=== PATIENT | female | born 1970 ===

== ENCOUNTER 2020-03-31 15:30 | Outpatient (REF) | payer OTHER, SELFPAY ==
--- NOTE | 2020-03-31 | US_ITS ---
EXAMINATION: US THYROID CLINICAL INFORMATION: Hypothyroidism. COMPARISON: Ultrasound soft tissue head/neck thyroid dated 03/19/2019 and 04/24/2018. TECHNIQUE: Linear transducer johansen-scale and color Doppler examination with attention to the region of the thyroid. FINDINGS: SIZE: Measurements of the thyroid lobes and nodules are given in sagittal, anteroposterior and transverse dimensions respectively. Right Thyroid Lobe: 3.6 x 1.7 x 2.2 cm, volume 6.7 mL. Previously 4 x 1.5 x 2.0 cm, volume 6.1 mL. Parenchyma: The gland echotexture is heterogeneous. Thyroid vascularity is increased. Left Thyroid Lobe: 4.4 x 1.4 x 1.4 cm, volume 4.7 mL. Previously 4.5 x 1.7 x 1.5 cm, volume 6.0 mL. Parenchyma: The gland echotexture is heterogeneous. Thyroid vascularity is increased. Isthmus: 0.3 cm in maximum AP dimension. Previously 0.3 cm. RIGHT THYROID LOBE: There is 1 nodule seen. 1. Location: Interpolar anterior. Size: 0.8 x 0.7 x 0.7 cm. Previous: 0.7 x 0.5 x 0.7 cm. Nodule characteristics: Hypoechoic, circumscribed, color flow similar to background. ISTHMUS: No nodules. LEFT THYROID LOBE: There are 4 nodules seen. 1. Location: Interpolar posterior. Size: 0.9 x 0.6 x 0.7 cm. Previous: 0.9 x 0.7 x 0.9 cm. Nodule characteristics: Isoechoic, fine hypoechoic halo, circumscribed, color flow similar to background. 2. Location: Superior. Size: 0.7 x 0.5 x 0.5 cm. Previous: Not previously demonstrated. Nodule characteristics: Coarse calcifications with shadowing. 3. Location: Inferior. Size: 0.6 x 0.5 x 0.5 cm. Previous: 0.5 x 0.5 x 0.5 cm. Nodule characteristics: Hyperechoic, fine hypoechoic halo, circumscribed, color flow less than background. 4. Location: Inferior. Size: 1.5 x 1.1 x 1.1 cm. Previous: 1.6 x 1.2 x 1.1 cm. Nodule characteristics: Heterogeneous, scattered coarse calcifications, smooth margin, color flow similar to background. NODES: No lymphadenopathy is seen in the tissue surrounding the thyroid gland. IMPRESSION: 1. Thyroid within normal size with hypervascular parenchyma similar to prior exam. 2. New nodule left upper lobe under 1 cm with coarse calcifications. Suggest follow-up ultrasound in 6-12 months. 3. Other nodularity including dominant nodule left lower pole, stable.
== END 2020-03-31 15:31 | disposition home or self-care (01) ==
LOC: HO.US 15:30
PROVIDERS: Visit Provider Internal Medicine
DX: E03.9 Hypothyroidism, unspecified (principal)
CPT/HCPCS: 76536

== ENCOUNTER → 2020-04-15 09:52 | Outpatient (BNVA) | payer OTHER, SELFPAY | PROVIDERS: Visit Provider Internal Medicine | DX: E04.2 Nontoxic multinodular goiter (principal); E03.9 Hypothyroidism, unspecified; E55.9 Vitamin D deficiency, unspecified; Z79.899 Other long term (current) drug therapy | CPT/HCPCS: 99212 ==

== ENCOUNTER 2020-05-06 12:58 | Outpatient (REF) | payer OTHER, SELFPAY | END 2020-05-06 12:59 | disposition home or self-care (01) | LOC: HO.LAB 12:58 | PROVIDERS: Visit Provider Internal Medicine | DX: Z20.828 Contact with and (suspected) exposure to other viral communicable diseases (principal) | CPT/HCPCS: C9803; U0003 ==

== ENCOUNTER 2020-06-11 08:47 | Outpatient (REF) | payer OTHER, SELFPAY ==
--- NOTE | 2020-06-11 08:51 | MM_ITS ---
EXAMINATION: MM SCREENING DIGITAL BREAST TOMOSYNTHESIS, BILATERAL CLINICAL INFORMATION: Screening. Asymptomatic. Benign right breast biopsy 2018 (PASH). The lifetime risk of breast cancer based on the Tyrer-Cuzick Model is 8%. COMPARISON: Mammography: 11/02/2018, 11/23/2017, 10/25/2017, 04/18/2016 TECHNIQUE: Digital breast tomosynthesis is performed in both the craniocaudal and mediolateral oblique views along with computer-aided detection (CAD). Synthesized 2D images are generated from the tomosynthesis. FINDINGS: The breasts are extremely dense, which lowers the sensitivity of mammography (ACR BI-RADS breast composition Category d). There are scattered bilateral punctate round calcifications again noted in both breasts. No calcification. There is no interval architectural abnormality. The axilla and skin contours are unremarkable. Right breast again has oval mass upper outer quadrant with biopsy clip marker, confirmed pseudoangiomatous stromal hyperplasia. The lesion appears increased in size from prior studies. Current measurements are approximately 5.0 x 3.7 x 1.7 cm compared with prior mammographic dimensions approximately 3.7 x 3.3 x 0.7 cm. Patient will be recalled to further characterize with targeted ultrasound. MM/MM tomosynthesis screening BI IMPRESSION: 1. Right: Biopsy proven PASH upper outer quadrant appears increased in size. 2. Left: No significant changes from prior studies. ASSESSMENT: BI-RADS 0: Incomplete - Need Additional Imaging Evaluation RECOMMENDATION: 1. Targeted ultrasound right breast. 2. Radiology department staff will contact the patient for additional imaging. This patient's information was entered into a reminder system with a target due date for their next mammogram.
== END 2020-06-11 08:48 | disposition home or self-care (01) ==
LOC: HO.MAMMO 08:47
PROVIDERS: Visit Provider Internal Medicine
DX: Z12.31 Encounter for screening mammogram for malignant neoplasm of breast (principal)
CPT/HCPCS: 77063; 77067

== ENCOUNTER 2020-06-22 12:51 | Outpatient (REF) | payer OTHER, SELFPAY ==
--- NOTE | 2020-06-22 12:56 | US_ITS ---
EXAMINATION: US DIAGNOSTIC ULTRASOUND BREAST, RIGHT CLINICAL INFORMATION: Recall from screening for enlarging biopsy proven PASH lesion upper outer right breast. COMPARISON: Mammography 06/11/2020, ultrasound-guided core biopsy 11/23/2017, targeted right breast ultrasound 10/30/2017. TECHNIQUE: Ultrasound right breast is targeted to the upper outer quadrant. FINDINGS: The biopsy-proven PASH lesion 10:00 position 7 cm from nipple is increased in size, measuring 5.1 x 4.5 x 1.5 cm. Prior measurements are 3.1 x 2.6 x 0.7 cm on ultrasound 10/30/2017. The lesion again shows heterogeneous solid intermediate internal echogenicity with some cystic foci and smooth margins. Results are discussed with the patient at time of visit. Surgical excision should be considered. Patient has seen Dr. Reyes in past and is interested in returning for follow up of this finding. [facility] arranged clinical appointment with Dr. Reyes through medical insurance clerk (Stella) on 06/22/2020. US/US breast RT limited IMPRESSION: The biopsy-proven PASH lesion upper outer right breast is increased in size. ASSESSMENT: BI-RADS 3: Probably Benign RECOMMENDATION: Surgical consult. This patient's information was entered into a reminder system with a target due date for their next mammogram.
== END 2020-06-22 12:52 | disposition home or self-care (01) ==
LOC: HO.MAMMO 12:51
PROVIDERS: PCP Internal Medicine; Visit Provider Internal Medicine
DX: N64.9 Disorder of breast, unspecified (principal)
CPT/HCPCS: 76642

== ENCOUNTER → 2020-06-30 13:14 | Outpatient (BNVA) | payer OTHER, SELFPAY | PROVIDERS: PCP Internal Medicine; Visit Provider Surgery | DX: N63.10 Unspecified lump in the right breast, unspecified quadrant (principal) | CPT/HCPCS: 99212 ==

== ENCOUNTER 2020-07-16 06:48 | Day surgery (SDC) | payer OTHER, SELFPAY ==
[2020-07-08 20:33] VITALS: BMI 30.4
--- NOTE | 2020-07-15 09:34 | P.CONAN_ITS ---
Documented by User: Stella Street 07/15/20 09:36 HPI - Anesthesia Eval Consult details Narrative: 49yo F for Breast Biopsy Needle Localization PMFSH Past Medical History Medical History Anxiety Carpal tunnel syndrome Depression Hypothyroidism Multinodular thyroid Vitamin D deficiency Family History Family History Father HTN (hypertension) Mother HTN (hypertension) Surgical History Surgical History History of left inguinal hernia repair (03/15/18) History of right breast biopsy (11/2017) Hx of shoulder surgery (09/2014) Hx of tubal ligation Pseudoangiomatous stromal hyperplasia of breast Social History Social History Alcohol intake: never Smoking Status: Current every day smoker Cigarettes Per Day: 7 Smoked in Last 30 Days: Yes Patient Interested in Nicotine Replacement: No Patient Given Instructions on How to Stop Smoking: No Second Hand Smoke Exposure: No Use of substances other than those prescribed or required for medical reasons: No Advance Directives: No Advance Directives Information Provided: No Advance Directives on File: No Meds Allergies Allergy/AdvReac Type Severity Reaction Status Date / Time No Known Allergies Allergy Verified 07/16/20 06:59 [No Known Allergies*] Home Medications Medication Instructions Recorded Confirmed Type duloxetine 60 mg capsule,delayed 60 mg PO DAILY 04/15/20 07/08/20 History release hydroxyzine HCl 50 mg tablet 50 mg PO BEDTIME 04/15/20 07/08/20 History cyanocobalamin (vitamin B-12) 1,000 mcg PO DAILY 07/08/20 07/08/20 History [Vitamin B-12] Exam Exam Date and Time: July 15, 2020 0934 Height,Weight and Vital Signs: Height 5 ft Weight 70.76 kg Assessment and Plan Assessment Anesthesia Assessment: Chart Reviewed Documented by User: Sadie Wallace 07/16/20 08:27 [facility] [place] Past Medical History Medical History Anxiety Carpal tunnel syndrome Depression Hypothyroidism Multinodular thyroid Vitamin D deficiency Family History Family History Father HTN (hypertension) Mother HTN (hypertension) Surgical History Surgical History History of left inguinal hernia repair (03/15/18) History of right breast biopsy (11/2017) Hx of shoulder surgery (09/2014) Hx of tubal ligation Pseudoangiomatous stromal hyperplasia of breast Social History Social History Alcohol intake: never Smoking Status: Current every day smoker Cigarettes Per Day: 7 Smoked in Last 30 Days: Yes Patient Interested in Nicotine Replacement: No Patient Given Instructions on How to Stop Smoking: No Second Hand Smoke Exposure: No Use of substances other than those prescribed or required for medical reasons: No Advance Directives: No Advance Directives Information Provided: No Advance Directives on File: No Meds Allergies Allergy/AdvReac Type Severity Reaction Status Date / Time No Known Allergies Allergy Verified 07/16/20 06:59 [No Known Allergies*] Home Medications Medication Instructions Recorded Confirmed Type duloxetine 60 mg capsule,delayed 60 mg PO DAILY 04/15/20 07/08/20 History release hydroxyzine HCl 50 mg tablet 50 mg PO BEDTIME 04/15/20 07/08/20 History cyanocobalamin (vitamin B-12) 1,000 mcg PO DAILY 07/08/20 07/08/20 History [Vitamin B-12] Exam Airway Mallampati Class: II TM Dist: >3cm Neck ROM: Full Loose/Missing/Broken Teeth: No Heart: RRR Lungs: CTA Assessment and Plan Assessment Anesthesia Assessment: Anesthesia Plan Discussed and Chart Reviewed Final Anesthetic Review NPO: Yes ASA Class: II Final Preanesthetic Review: Meds/Allgs Chart Reviewed, Consent Obtained/Reviewed and Anes Risks/Benef Reviewed Patient Risk: Low Procedure Risk: Low Anesthetic Plan Anesthetic Plan: GA Disposition: Standard PACU
--- NOTE | 2020-07-16 | MM_ITS ---
EXAMINATION: US ULTRASOUND-GUIDED NEEDLE LOCALIZATION BREAST, RIGHT MM DIGITAL MAMMOGRAPHY BREAST POST LOCALIZATION, RIGHT NEEDLE LOCALIZATION SPECIMEN RADIOGRAPH FROM THE RIGHT BREAST CLINICAL INFORMATION: Slowing enlarging biopsy proven PASH mass right breast upper outer quadrant. COMPARISON: Ultrasound right breast 06/22/2020, 11/23/2017, 10/30/2017; mammography right breast 06/11/2020, 11/02/2018. TECHNIQUE NEEDLE LOC: Proper informed consent is obtained from the patient after discussion of the procedure, potential risks and complications, and alternatives including declining the procedure today. Patient was given an opportunity for questions. The patient appeared to understand. The patient consented to the procedure and signed the consent form. GUIDANCE: Real time ultrasound guidance APPROACH: Bracket mass from posterior aspect and anterior aspect from oblique lateral medial approach. TARGET: Oval solid mass with a few scattered internal cystic foci and a surgical clip, overall dimensions approximately 5.1 x 4.5 x 1.5 cm. ANESTHESIA: 10 cc lidocaine 1% total for the 2 sites. LOCALIZATION MARKERS: [place] MammaLok x2 - each 5 cm length (single mass localized with 2 localization needles). The skin is prepped and local anesthesia administered. The needle is positioned and position assessed with real time ultrasound. The wires are hooked into position. Benedict needle protector placed. The patient tolerated the procedure well and had no immediate complication. MM DIGITAL MAMMOGRAPHY, RIGHT Digital mammography is performed in single nonorthogonal oblique CC view. The breasts are heterogeneously dense, which may obscure small masses (ACR BI-RADS breast composition Category c). The mass is bracketed by the 2 localization [place] upper outer right breast. Results are called to medical stenographer at surgical office following the procedure. POSTPROCEDURE UNILATERAL DIGITAL MAMMOGRAM: Mammography is performed using digital mammography in CC and ML views. There are scattered areas of fibroglandular density (ACR BI-RADS breast composition Category b). The clip marker is in position. No gross hematoma. TECHNIQUE SPECIMEN RADIOGRAPH: Single radiograph of the excised breast tissue is performed. FINDINGS SPECIMEN RADIOGRAPH: Localization needles sectioned intentionally at surgery. Distal localization wire on one side and distal localization needle with wire on either side are in the specimen. The biopsy-proven PASH mass and the HydroMark clip marker are within the specimen. Results were called to Dr. Carter Reyes in the operating room at the time of imaging. MM/MM diagnostic mammo unilat RT IMPRESSION: 1. Status post ultrasound-guided right breast needle localization with wire hooked into position. 2. Postoperative specimen radiograph obtained.
[2020-07-16] MEDS: ceFAZolin Sodium/Dextrose,Iso 2 GM/50 ML PIGGYBACK IV (07:49)
[2020-07-16] MEDS: Lactated Ringers 1,000 ML 100 ML IVCONT (07:49)
--- NOTE | 2020-07-16 09:39 | MHC.SHP ---
Pre-Procedural Eval Section A The patient is an INPATIENT: No Changes since office visit: Yes Patient answered all questions; No Cold of Flu in the past 2 weeks, No New Medical Problems and No Changes in Medication The History & Physical has been completed within 30 days and I have reviewed it.: Yes Section B Chief Complaint: Pseudoangiomatous stromal hyperplasia of breast Allergies: Allergies Allergy/AdvReac Type Severity Reaction Status Date / Time No Known Allergies Allergy Verified 07/16/20 06:59 [No Known Allergies*] Plan Diagnosis/Plan: Unchanged I have reviewed the history and physical and performed a pertinent physical examination on my patient. No changes have occurred unless specified.
--- NOTE | 2020-07-16 10:44 | PM.OP ---
Brief Operative Note Date of Service: 07/16/20 Pre-op diagnosis: RIGHT BREAST MASS (PASH) Post-op diagnosis: same Procedure: EXCISION OF RIGHT BREAST MASS Implants: NONE Surgeon: Carter Reyes MD Anesthesia: [facility] Membership Correspondent: Clementine Ji Estimated blood loss (mL): 10 Pathology: other (RT BREAST MASS) Condition: stable Disposition: PACU
[2020-07-16 10:58] VITALS: BP 143/79; PULSE 92; RESP 14; TEMP 36.7; O2SAT 100
[2020-07-16 11:03] VITALS: BP 133/78; PULSE 88; RESP 16; O2SAT 96
--- NOTE | 2020-07-16 11:05 | W.PM.OPN ---
Operative Note Operative Note Date of Service: 07/16/20 Narrative: Preoperative diagnosis: Right breast mass (PAS H) Postoperative diagnosis: Same Procedure: Right breast lumpectomy with needle localization Surgeon: Carter Reyes MD Asic Design Engineer: Clementine Ji PA-C Anesthesia: General LMA Indications for procedure patient is a 49-year-old female presenting with a right breast mass. She is status post ultrasound-guided core biopsy which revealed a pseudoangiomatous stromal hyperplasia (PAS H). Subsequent mammogram and ultrasound indicated an enlarging tumor therefore she presents for excisional biopsy. Operative findings: Patient was found to have a large mass in the right breast in the upper outer quadrant. Specimen x-ray confirmed the marking clip within the specimen. Specimen: Right breast mass Estimated blood loss: 10 mL Complications: None Procedure details: Patient was brought to the OR and placed in a supine position. After administering general anesthesia the patient's right breast was prepped with ChloraPrep and draped in a sterile fashion. A surgical time-out was called and consent confirmed. Patient received preoperative antibiotics and Venodyne boots were in place. Local anesthesia consisting of Sensorcaine 0.25% with epinephrine was infiltrated in a curvilinear fashion in the upper outer quadrant. A curvilinear incision was then made with a scalpel carried down through subcutaneous tissue. Superior and inferior skin flaps were then created. Using the localizing needle x2 a core of tissue surrounding needles was excised. The localizing needles marked the margins of the specimen. The needles were cut with a wire technician and dissection in the posterior margin performed. Specimen was marked with a long suture on the lateral margin short suture on the superior margin and looped suture in the posterior margin. Specimen was removed and sent to pathology for further examination. A specimen x-ray confirmed the marking clip within the specimen. Wounds were irrigated with saline solution and suctioned dry. Wounds were checked for hemostasis with electrocautery. Deep breast tissue was closed using interrupted 3 0 Polysorb sutures. Superficial tissue was closed using interrupted 3-0 Polysorb sutures. Dermis was reapproximated using interrupted 3-0 Polysorb sutures. Skin was then closed using a running subcuticular 4 0 Polysorb suture. Steri-Strips 2 x 2 gauze and Tegaderm then applied. The patient tolerated the procedure well. Sponge, instrument, and needle counts reported as correct. The patient was transferred to PACU in stable condition.
[2020-07-16 11:08] VITALS: BP 139/80; PULSE 89; RESP 16; O2SAT 95
[2020-07-16 11:14] VITALS: BP 132/82; PULSE 84; RESP 16; O2SAT 95
[2020-07-16 11:29] VITALS: BP 138/80; PULSE 75; RESP 16; O2SAT 97
[2020-07-16 11:43] VITALS: BP 123/79; PULSE 69; RESP 16; TEMP 36.6; O2SAT 98
== END 2020-07-16 12:19 | disposition home or self-care (01) ==
PROVIDERS: PCP Internal Medicine; Visit Provider Surgery
PROC: (CPT 19301; principal; 2020-07-16 09:30)
DX: N63.11 Unspecified lump in the right breast, upper outer quadrant (principal); N62 Hypertrophy of breast; N64.89 Other specified disorders of breast; F32.9 Major depressive disorder, single episode, unspecified; E03.9 Hypothyroidism, unspecified; E55.9 Vitamin D deficiency, unspecified; Z98.51 Tubal ligation status; F17.210 Nicotine dependence, cigarettes, uncomplicated; Z79.899 Other long term (current) drug therapy
CPT/HCPCS: 19301; 19285; 77065; 88307; 88329; A4648; J0690; J1100; J2250; J2405; J3010

== ENCOUNTER → 2020-07-24 09:25 | Outpatient (BNVA) | payer OTHER, SELFPAY | PROVIDERS: PCP Internal Medicine; Visit Provider Surgery | DX: N64.89 Other specified disorders of breast (principal) | CPT/HCPCS: 99212 ==

== ENCOUNTER 2020-12-03 11:12 | Outpatient (REF) | payer OTHER, SELFPAY ==
--- NOTE | ~2020-12-03 | US_ITS ---
EXAMINATION: PELVIC ULTRASOUND CLINICAL INFORMATION: Vaginal bleeding COMPARISON: None TECHNIQUE: Transabdominal and transvaginal pelvic ultrasound was performed. Transvaginal exam was performed for better visualization of the uterus and ovaries. FINDINGS: The uterus is anteverted and measures 10.5 x 5.1 x 6.8 cm in dimension. There are multiple, at least 5, uterine lesions suggestive of fibroids. These measure 3.6 x 3.4 x 2.8 cm in the left upper uterine body, 1.5 x 1 x 1.3 cm in the posterior uterine body, 2 x 1.5 x 2 cm in the posterior uterine fundus, 0.6 x 1.2 x 1.4 cm subserosal right uterine body and 2.3 x 2.2 x 2 cm in the right anterior lower uterine segment. Endometrial thickness is normal measuring 1.1 cm. The ovaries are normal-appearing. The right ovary measures 2.9 x 1.6 x 2.6 cm. The left ovary is seen transabdominally only and measures 3.8 x 1.7 x 2.7 cm. There is a 2.1 x 1.5 x 1.9 cm simple left ovarian cyst. There is trace fluid in the pelvis. US/US pelvic and transvaginal IMPRESSION: Multiple uterine fibroids, largest measuring 3.6 x 3.4 x 2.8 cm in the left upper uterine body. Normal thickness endometrium. Normal-appearing ovaries.
== END 2020-12-03 11:13 | disposition home or self-care (01) ==
LOC: HO.US 11:12
PROVIDERS: Visit Provider Advanced Practice Midwife
DX: N93.9 Abnormal uterine and vaginal bleeding, unspecified (principal)
CPT/HCPCS: 76830; 76856

== ENCOUNTER 2021-01-06 08:49 | Outpatient (REF) | payer OTHER, SELFPAY ==
--- NOTE | ~2021-01-06 | US_ITS ---
EXAMINATION: US THYROID CLINICAL INFORMATION: Nontoxic multinodular goiter. COMPARISON: Thyroid ultrasound 03/31/2020 and 03/19/2019. Ultrasound-guided thyroid biopsy 09/13/2018. TECHNIQUE: Linear transducer grayscale and color Doppler examination with attention to the region of the thyroid. FINDINGS: SIZE: Measurements of the thyroid lobes and nodules are given in sagittal, anteroposterior and transverse dimensions respectively. Right Thyroid Lobe: 3.4 x 1.8 x 1.8 cm, volume 5.8 mL. Previously 3.6 x 1.7 x 2.2 cm, volume 6.7 mL. Parenchyma: The gland echotexture is heterogeneous. Thyroid vascularity is increased. Left Thyroid Lobe: 4.1 x 1.9 x 1.4 cm, volume 5.5 mL. Previously 4.4 x 1.4 x 1.4 cm, volume 4.7 mL. Parenchyma: The gland echotexture is heterogeneous. Thyroid vascularity is increased. Isthmus: 0.3 cm in maximum AP dimension. Previously 0.3 cm. Estimated total number of nodules greater than or equal to 1 cm: 2. Oyster Opener nodules are described as follows: 1. Location: Right midpole. Size: 0.8 x 0.9 x 0.8 cm, volume 0.32 mL. Previously: 0.8 x 0.7 x 0.7 cm, volume 0.17 mL. Nodule characteristics: Composition: Solid (2). Echogenicity: Hyperechoic (1). Shape: Not taller than wide (0). Margins: Smooth (0). Echogenic Foci: None (0). ACR TI-RADS total points: 3 Previous: N/A ACR TI-RADS category: 3 Previous: N/A Significant change in size (>/= 20% in 2 dimensions and minimal increase of 2 mm or 50% or greater increase in volume): None Change in features: None Change in ACR TI-RADS risk category: N/A 2. Location: Right midpole. Size: 0.5 x 0.4 x 0.4 cm, volume 0.03 mL. Previously: Not documented. Nodule characteristics: Composition: Solid (2). Echogenicity: Hypoechoic (2). Shape: Not taller than wide (0). Margins: Smooth (0). Echogenic Foci: None (0). ACR TI-RADS total points: 4 Previous: N/A ACR TI-RADS category: 4 Previous: N/A 3. Location: Left midpole/lower pole. Size: 0.6 x 0.5 x 0.6 cm, volume 0.11 mL. Previously: 0.6 x 0.5 x 0.5 cm, volume 0.78 mL. Nodule characteristics: Composition: Solid (2). Echogenicity: Hyperechoic (1). Shape: Not taller than wide (0). Margins: Smooth (0). Echogenic Foci: None (0). ACR TI-RADS total points: 3 Previous: N/A ACR TI-RADS category: 3 Previous: N/A Significant change in size (>/= 20% in 2 dimensions and minimal increase of 2 mm or 50% or greater increase in volume): None Change in features: None Change in ACR TI-RADS risk category: N/A 4. Location: Left midpole. Size: 1.0 x 0.8 x 0.8 cm, volume 0.33 mL. Previously: 0.9 x 0.6 x 0.7 cm, volume 0.21 mL. Nodule characteristics: Composition: Solid (2). Echogenicity: Hyperechoic (1). Shape: Not taller than wide (0). Margins: Smooth (0). Echogenic Foci: None (0). ACR TI-RADS total points: 3 Previous: N/A ACR TI-RADS category: 3 Previous: N/A Significant change in size (>/= 20% in 2 dimensions and minimal increase of 2 mm or 50% or greater increase in volume): None Change in features: None Change in ACR TI-RADS risk category: N/A 5. Location: Left lower pole. Size: 1.4 x 1.1 x 0.8 cm, volume 0.68 mL. Previously: 1.5 x 1.1 x 1.1 cm, volume 0.94 mL. Nodule characteristics: Composition: Cannot be determined (2). Echogenicity: Cannot be determined (1). Shape: Not taller than wide (0). Margins: Irregular (2). Echogenic Foci: Macrocalcifications (1). ACR TI-RADS total points: 6 Previous: N/A ACR TI-RADS category: 4 Previous: N/A Significant change in size (>/= 20% in 2 dimensions and minimal increase of 2 mm or 50% or greater increase in volume): None Change in features: None Change in ACR TI-RADS risk category: N/A NODES: None US/US thyroid IMPRESSION: Heterogeneous hypervascular thyroid gland. Multiple bilateral thyroid nodules, stable compared to last exam 03/31/2020. Recommend follow-up as per ACR TI-RADS. ACR TI-RADS RECOMMENDATION REFERENCE: Ultrasound-guided fine-needle aspiration, followup ultrasound, no further follow up. * TR1 (0 point) and TR 2 (2 points): No FNA or follow up * TR3 (3 points): FNA if more than or equal to 2.5 cm in maximum dimension, followup ultrasound in 1, 3 and 5 years if 1.5 to 2.4 cm in maximum dimension. * TR4 (4-6 points): FNA if more than or equal to 1.5 cm in maximum dimension, followup ultrasound in 1, 2, 3 and 5 years if 1 to 1.4 cm in maximum dimension. * TR5 (more than or equal to 7 points): FNA if more than or equal to 1 cm in maximum dimension, followup ultrasound every year for 5 years if 0.5 to 0.9 cm in maximum dimension. * TR3, TR4 or TR5 nodules that are below the size threshold for follow up receive no follow up.
== END 2021-01-06 08:50 | disposition home or self-care (01) ==
LOC: HO.US 08:49
PROVIDERS: Visit Provider Internal Medicine
DX: E04.2 Nontoxic multinodular goiter (principal)
CPT/HCPCS: 76536

== ENCOUNTER 2021-04-14 10:22 | Outpatient (REF) | payer OTHER, SELFPAY ==
--- NOTE | ~2021-04-14 | US_ITS ---
EXAMINATION: US THYROID CLINICAL INFORMATION: Nontoxic multinodular goiter. COMPARISON: Ultrasound soft tissue head/neck thyroid dated 01/06/2021 and 03/31/2020. TECHNIQUE: Linear transducer grayscale and color Doppler examination with attention to the region of the thyroid. FINDINGS: SIZE: Measurements of the thyroid lobes and nodules are given in sagittal, anteroposterior and transverse dimensions respectively. Right Thyroid Lobe: 3.7 x 1.5 x 2.3 cm, volume 6.7 mL. Previously 3.4 x 1.8 x 1.8 cm, volume 5.8 mL. Parenchyma: The gland echotexture is heterogeneous. Thyroid vascularity is increased. Left Thyroid Lobe: 4.1 x 1.5 x 1.7 cm, volume 5.2 mL. Previously 4.1 x 1.9 x 1.4 cm, volume 5.5 mL. Parenchyma: The gland echotexture is heterogeneous. Thyroid vascularity is increased. Isthmus: 0.22 cm in maximum AP dimension. Previously 0.29 cm. Estimated total number of nodules greater than or equal to 1 cm: 2. [employer] nodules are described as follows: 1. Location: Right mid. Size: 0.81 x 0.51 x 0.84 cm, volume 0.18 mL. Previously: 0.84 x 0.89 x 0.83 cm, volume 0.32 mL. Nodule characteristics: Composition: Solid (2). Echogenicity: Hyperechoic (1). Shape: Not taller than wide (0). Margins: Smooth (0). Echogenic Foci: None (0). ACR TI-RADS total points: 3 Previous: 3 ACR TI-RADS category: 3 Previous: 3 Significant change in size (>/= 20% in 2 dimensions and minimal increase of 2 mm or 50% or greater increase in volume): No Change in features: No Change in ACR TI-RADS risk category: No 2. Location: Right mid. Size: 1.8 x 0.78 x 1.6 cm, volume 1.2 mL. Previously: Not seen on the previous study. This may have been present and not measured due to the heterogeneous nature of the thyroid gland. Nodule characteristics: Composition: Solid (2). Echogenicity: Hyperechoic (1). Shape: Not taller than wide (0). Margins: Smooth (0). Echogenic Foci: None (0). ACR TI-RADS total points: 3 ACR TI-RADS category: 3 3. Location: Left mid. Size: 0.55 x 0.49 x 0.53 cm, volume 0.07 mL. Previously: 0.63 x 0.53 x 0.62 cm, volume 0.11 mL. Nodule characteristics: Composition: Solid (2). Echogenicity: Hyperechoic (1). Shape: Not taller than wide (0). Margins: Smooth (0). Echogenic Foci: None (0). ACR TI-RADS total points: 3 Previous: 3 ACR TI-RADS category: 3 Previous: 3 Significant change in size (>/= 20% in 2 dimensions and minimal increase of 2 mm or 50% or greater increase in volume): No Change in features: No Change in ACR TI-RADS risk category: No 4. Location: Left mid. Size: 0.76 x 0.66 x 0.70 cm, volume 0.2 mL. Previously: Not seen on the previous study. Nodule characteristics: Composition: Cannot be determined (2). Echogenicity: Hypoechoic (2). Shape: Not taller than wide (0). Margins: Smooth (0). Echogenic Foci: Macrocalcifications (1). ACR TI-RADS total points: 5 ACR TI-RADS category: 4 5. Location: Left inferior. Size: 1.8 x 0.99 x 1.7 cm, volume 1.6 mL. Previously: 1.4 x 1.1 x 0.84 cm, volume 0.68 mL. Nodule characteristics: Composition: Cannot be determined (2). Echogenicity: Cannot be determined (1). Shape: Not taller than wide (0). Margins: Irregular (2). Echogenic Foci: Macrocalcifications (1). ACR TI-RADS total points: 6 Previous: 6 ACR TI-RADS category: 4 Previous: 4 Significant change in size (>/= 20% in 2 dimensions and minimal increase of 2 mm or 50% or greater increase in volume): Yes Change in features: No Change in ACR TI-RADS risk category: No NODES: No. US/US thyroid IMPRESSION: Heterogeneous thyroid gland with multiple nodules again identified. The highest category nodule is nodule #5 at category 4. Based on the current size, this is now appropriate for fine-needle aspiration. Nodule #1, #3, and #4 require no further follow-up due to their size. Nodule #2 Meets criteria for continued follow-up in one year. ACR TI-RADS RECOMMENDATION REFERENCE: Ultrasound-guided fine-needle aspiration, followup ultrasound, no further follow up. * TR1 (0 point) and TR 2 (2 points): No FNA or follow up * TR3 (3 points): FNA if more than or equal to 2.5 cm in maximum dimension, followup ultrasound in 1, 3 and 5 years if 1.5 to 2.4 cm in maximum dimension. * TR4 (4-6 points): FNA if more than or equal to 1.5 cm in maximum dimension, followup ultrasound in 1, 2, 3 and 5 years if 1 to 1.4 cm in maximum dimension. * TR5 (more than or equal to 7 points): FNA if more than or equal to 1 cm in maximum dimension, followup ultrasound every year for 5 years if 0.5 to 0.9 cm in maximum dimension. * TR3, TR4 or TR5 nodules that are below the size threshold for follow up receive no follow up.
== END 2021-04-14 10:23 | disposition home or self-care (01) ==
LOC: HO.US 10:22
PROVIDERS: PCP Internal Medicine; Visit Provider Internal Medicine
DX: E04.2 Nontoxic multinodular goiter (principal)
CPT/HCPCS: 76536

== ENCOUNTER 2021-04-29 08:11 | Outpatient (REF) | payer OTHER, SELFPAY ==
--- NOTE | 2021-04-29 08:14 | EMG_ITS ---
Bilateral median and ulnar motor and sensory studies were performed. Bilateral radial sensory studies were performed, and paraspinal muscles were tested. IMPRESSION: 1. Mild bilateral ulnar neuropathy across cubital tunnel. 2. [id number] right median neuropathy across carpal tunnel. 3. Mild left median neuropathy across carpal tunnel. MD DARIUS Carrera/DARBY / [id number]
== END 2021-04-29 08:12 | disposition home or self-care (01) ==
LOC: HO.NEURO 08:11
PROVIDERS: Visit Provider Internal Medicine
DX: G56.03 Carpal tunnel syndrome, bilateral upper limbs (principal)
CPT/HCPCS: 95860; 95886; 95911

== ENCOUNTER → 2021-05-19 08:39 | Outpatient (BNVA) | payer OTHER, SELFPAY | PROVIDERS: PCP Internal Medicine; Visit Provider Orthopaedic Surgery | DX: G56.03 Carpal tunnel syndrome, bilateral upper limbs (principal); G56.23 Lesion of ulnar nerve, bilateral upper limbs | CPT/HCPCS: 99202 ==

== ENCOUNTER → 2021-06-02 10:33 | Outpatient (BNV) | payer OTHER, SELFPAY | PROVIDERS: PCP Nurse Practitioner Family; Visit Provider Internal Medicine | DX: D75.839 Thrombocytosis, unspecified (principal) | CPT/HCPCS: 99203; 99213; 99214 ==

== ENCOUNTER → 2021-06-23 09:50 | Outpatient (BNVA) | payer OTHER, SELFPAY | PROVIDERS: PCP Internal Medicine; Visit Provider Internal Medicine | DX: E04.2 Nontoxic multinodular goiter (principal); E55.9 Vitamin D deficiency, unspecified; E03.9 Hypothyroidism, unspecified | CPT/HCPCS: Q3014 ==

== ENCOUNTER 2021-07-07 08:28 | Outpatient (REF) | payer OTHER, SELFPAY ==
[2021-07-07 09:37] LABS: Free T4 (Free Thyroxine) 0.92 ng/dL (0.71-1.85); Vitamin D 25-OH Total 33.7 ng/mL (>30)
== END 2021-07-07 08:29 | disposition home or self-care (01) ==
LOC: HO.LAB 08:28
PROVIDERS: PCP Internal Medicine; Visit Provider Internal Medicine
DX: E55.9 Vitamin D deficiency, unspecified (principal); E03.9 Hypothyroidism, unspecified; E04.2 Nontoxic multinodular goiter
CPT/HCPCS: 36415; 82306; 84439; 84443

== ENCOUNTER 2021-07-18 11:51 | Emergency (ER) | payer OTHER, SELFPAY ==
--- NOTE | ~2021-07-18 | XR_ITS ---
EXAMINATION: XR FOOT, RIGHT CLINICAL INFORMATION: Broken sewing needle in the usual of the foot. COMPARISON: None TECHNIQUE: AP, lateral, and oblique views of the right foot. FINDINGS: There is an 9 mm radiopaque broken needle in the lateral heel soft tissues. No gross bony abnormality. XR/XR foot RT min 3V IMPRESSION: 9 mm radiopaque broken needle in the lateral healed soft tissues. It is 4 mm deep to the skin.. Total depth is 2 cm from the skin to the distal end of the needle.
[2021-07-18 12:00] VITALS: BP 137/97; PULSE 98; RESP 19; TEMP 36.6; O2SAT 99; BMI 31.2
--- NOTE | 2021-07-18 12:07 | ED_ITS ---
HPI - Wound/Laceration General Chief Complaint: Wound/Laceration Stated Complaint: sewing needle in foot Time Seen by Provider: 07/18/21 12:05 History of Present Illness HPI narrative: puncture wound to right heel. pt stepped on sewing needle yesterday and needle broke off in foot. Related Data Home Medications Medication Instructions Recorded Confirmed duloxetine 60 mg 60 mg PO DAILY 04/15/20 07/16/21 capsule,delayed release hydroxyzine HCl 50 mg tablet 50 mg PO BEDTIME 04/15/20 07/16/21 cyanocobalamin (vitamin B-12) 1,000 mcg PO DAILY 07/08/20 07/16/21 1,000 mcg tablet (Vitamin B-12) fluticasone propionate 50 2 spray INTRANASAL DAILY 07/16/21 07/16/21 mcg/actuation nasal spray,suspension nicotine 14 mg/24 hr daily TOPICAL 07/16/21 07/16/21 transdermal patch Previous Rx's Medication Instructions Recorded cholecalciferol (vitamin D3) 50 50 mcg PO DAILY 30 Days #30 cap 04/06/20 mcg (2,000 unit) capsule levothyroxine 25 mcg tablet 25 mcg PO QAM #30 tab 06/10/20 amoxicillin 875 mg-potassium 1 tab PO BID #14 tab 07/18/21 clavulanate 125 mg tablet (Augmentin) ibuprofen 600 mg tablet 600 mg PO TID PRN #20 tab 07/18/21 Allergies Allergy/AdvReac Type Severity Reaction Status Date / Time No Known Allergies Allergy Verified 07/16/21 10:54 [No Known Allergies*] Review of Systems Verdana 4l Review of Systems: Verdana 4d Verdana 4d Constitutional : No trauma, No Weight loss, No Fever, No Chills, ENT/Mouth : No Hearing loss, No Ear Pain, No Nasal Congestion, No Sinus Pain, No Hoarseness, No sore throat, No Rhinorrhea, No Swallowing Difficulty Cardiovascular : No ChestChest Pain, No SOB Respiratory : No Cough, No Dyspnea Gastrointestinal : No Nausea, No Vomiting, No Diarrhea, No abdominal Pain, Genitourinary : No Dysuria, No Urinary Frequency, Musculoskeletal :no Back pain, No neck pain, No joint stiffness, No joint swelling Skin : No Skin Lesions, No rash or signs of infection, small puncture wound to left plantar heel Neuro : No Weakness, No radiation, No Numbness, Yes all other systems are reviewed and are negative PMFSH Past Medical History Attestation statement: The following information was validated with the patient. Medical History (Updated 07/18/21 @ 13:30 by RC Zarate) Anxiety Carpal tunnel syndrome Depression Hypothyroidism Leucocytosis Multinodular thyroid Thrombocytosis Vitamin D deficiency Surgical History History of left inguinal hernia repair History of lumpectomy of right breast History of right breast biopsy (11/2017) Hx of shoulder surgery (09/2014) Hx of tubal ligation Pseudoangiomatous stromal hyperplasia of breast Family History Family History Father HTN (hypertension) Mother HTN (hypertension) Social History Social History Alcohol intake: former Patient Tobacco Use Status: Current everyday Tobacco user Tobacco use type: Cigarette Second Hand Smoke Exposure: No Advance Directives: No Advance Directives Information Provided: No Patient : No Current occupational status: employed 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 Blood pressure elevated.? Heart rate normal.? Respiration rate normal.? Temperature normal.? Oxygen saturation normal. Appearance: Alert. Oriented X3. No acute distress. ? Head: Normal external exam CVS: Normal heart rate and rhythm. Respiratory: No respiratory distress. Painless inspiration. Back: ?No CVA tenderness.? Full range of motion noted. Skin: Skin warm and dry.? Normal skin color.? Normal skin turgor. No rashes/lesions/lacerations noted., small puncture wound to left plantar surface, without erythema or fluctuance Extremities: No lower extremity edema. ? Extremities exhibit normal range of motion.? Extremities nontender. Normal gait Neuro: Oriented X 3.? No motor deficit noted. No sensory deficit noted. Procedures Procedure Narrative Procedure Narrative: pt in supine position. local anesthesia with lidocaine 2% with epi. cross incision made with a #11blade. use forceps needle was removed. minimal blood loss. drssing applied. pt. tolerated procedure well. Foreign Body Removal Time Out Performed: yes Site: left Description of foreign body: needle (sewing needle to heel of left foot) and other Sedation/Analgesia: none Technique: removal with forceps and incision made to facilitate removal (#11 blade) Confirmed by:: radiograph Complications: none Post-procedure exam: awake, alert Neurovascular: normal distal pulse and no change from pre-procedure Discharge Plan Discharge Clinical Impression: Foreign body (FB) in soft tissue, Puncture wound Patient Disposition: Home, Self-Care Instructions: Soft Tissue Foreign Body (ED) Additional Instructions: soak left foot for 10 minutes tonight in warm, soapy water and again tomorrow morning. Dry well after soaking and apply dressing. Do not soak foot after tomorrow morning. okay to shower as normal. Take antibiotics as directed. Return if worse/if signs of infection: increase pain, redness, fever. use crutches until able to ambulate. Follow up with pcp as needed. Prescriptions: New amoxicillin-pot clavulanate [Augmentin] 875-125 mg tablet 1 tab PO BID Qty: 14 0RF ibuprofen 600 mg tablet 600 mg PO TID PRN (Reason: pain) Qty: 20 0RF No Action cholecalciferol (vitamin D3) 50 mcg (2,000 unit) capsule 50 mcg PO DAILY 30 Days Qty: 30 11RF levothyroxine 25 mcg tablet 25 mcg PO QAM Qty: 30 11RF cyanocobalamin (vitamin B-12) [Vitamin B-12] 1,000 mcg Tablet 1,000 mcg PO DAILY 0RF nicotine 14 mg/24 hr patch 24 hour topical 0RF fluticasone propionate 50 mcg/actuation spray,suspension 2 spray intranasal DAILY 0RF duloxetine 60 mg capsule,delayed release(DR/EC) 60 mg PO DAILY 0RF hydroxyzine HCl 50 mg tablet 50 mg PO BEDTIME 0RF Stand Alone Forms: Work/School Release Interventions: ED Discharge Assessment Last Done: 07/18/21 13:43 Discharge Date/Time: 07/18/21 13:44
[2021-07-18] MEDS: Diphth,Pertus(ACell),Tet Adult 0.5 ML SYRINGE IM (12:37)
[2021-07-18] MEDS: Lidocaine HCl 2%/Epi 1:100,000 20 ML VIAL INFILTRATI (12:50)
--- NOTE | 2021-07-18 13:41 | PC.NURSE ---
Patient to ER after stepping on a needle yesterday. Per patient she was unable to pull needle out and estimated 1 of needle remains in heal of foot. Patient reports minimal pain. Needle visualized on xray. Provider numbed area with lidocaine, small incision made, and needle retrieved. Patient tolerated well. Tetanus booster given. Patient given crutches and educated on use.
== END 2021-07-18 13:44 | disposition home or self-care (01) ==
PROVIDERS: Emergency Provider Emergency Medicine; PCP Nurse Practitioner Psychiatric/Mental Health
DX: S90.852A Superficial foreign body, left foot, initial encounter (principal); S91.332A Puncture wound without foreign body, left foot, initial encounter; S90.812A Abrasion, left foot, initial encounter; Y28.9XXA Contact with unspecified sharp object, undetermined intent, initial encounter; Y93.9 Activity, unspecified; Y92.9 Unspecified place or not applicable; Y99.9 Unspecified external cause status; Z79.899 Other long term (current) drug therapy; Z20.822 Contact with and (suspected) exposure to COVID-19; F17.210 Nicotine dependence, cigarettes, uncomplicated; Z71.6 Tobacco abuse counseling
CPT/HCPCS: 73630; 90715; 99283

== ENCOUNTER → 2021-07-19 12:51 | Outpatient (BNVA) | payer OTHER, SELFPAY | PROVIDERS: PCP Nurse Practitioner Family; Referring Provider Nurse Practitioner Family; Visit Provider Internal Medicine Cardiovascular Disease | DX: R00.2 Palpitations (principal); R42 Dizziness and giddiness | CPT/HCPCS: 93005; 99202 ==

== ENCOUNTER → 2021-07-20 15:12 | Outpatient (BNVA) | payer OTHER, SELFPAY | PROVIDERS: PCP Nurse Practitioner Family; Visit Provider Orthopaedic Surgery | DX: G56.03 Carpal tunnel syndrome, bilateral upper limbs (principal); G56.23 Lesion of ulnar nerve, bilateral upper limbs | CPT/HCPCS: 99212 ==

== ENCOUNTER 2021-07-22 06:01 | Day surgery (SDC) | payer OTHER, SELFPAY ==
[2021-07-16 10:57] VITALS: BMI 29.8
--- NOTE | 2021-07-21 08:53 | P.CONAN_ITS ---
Documented by User: Stella Street NP 07/22/21 08:41 HPI - Anesthesia Eval Consult details Narrative: 50yo F for Left Cubital Tunnel Release,carpal tunnel release [place] [facility] [place] - Echo and Holter ordered (not complete) - per Dr Lambert OV note, unlikely cardiac PMFSH Active Problems Active Problems: All Active Problems (Updated 07/19/21 @ 13:24 by Zan Lambert MD) Dizziness (Acute) Palpitations (Acute) Carpal tunnel syndrome of left wrist (Acute) Carpal tunnel syndrome of right wrist (Acute) Cubital tunnel syndrome on left (Acute) Cubital tunnel syndrome on right (Acute) Thrombocytosis (Chronic) Pseudoangiomatous stromal hyperplasia of breast (Acute) Multinodular thyroid (Acute) Vitamin D deficiency (Acute) Hypothyroidism (Acute) Past Medical History Medical History Anxiety Carpal tunnel syndrome Depression Hypothyroidism Leucocytosis Multinodular thyroid Thrombocytosis Vitamin D deficiency Family History Family History Father HTN (hypertension) Mother HTN (hypertension) Surgical History Surgical History History of left inguinal hernia repair History of lumpectomy of right breast History of right breast biopsy (11/2017) Hx of shoulder surgery (09/2014) Hx of tubal ligation Pseudoangiomatous stromal hyperplasia of breast Social History Social History Alcohol intake: never Patient Tobacco Use Status: Current everyday Tobacco user Tobacco use type: Cigarette Cigarettes Per Day: 5 Years Smoked: 20 Smoked in Last 30 Days: Yes Second Hand Smoke Exposure: No Use of substances other than those prescribed or required for medical reasons: No Are you DNR?: No Advance Directives: No Advance Directives Information Provided: Yes Current occupational status: employed 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 Meds Allergies Allergy/AdvReac Type Severity Reaction Status Date / Time No Known Allergies Allergy Verified 07/22/21 06:37 [No Known Allergies*] Home Medications Medication Instructions Recorded Confirmed Last Taken Type duloxetine 60 mg 60 mg PO DAILY 04/15/20 07/19/21 Unknown History capsule,delayed release hydroxyzine HCl 50 mg PO BEDTIME 04/15/20 07/19/21 Unknown History 50 mg tablet cyanocobalamin 1,000 mcg PO 07/08/20 07/19/21 Unknown History (vitamin B-12) DAILY 1,000 mcg tablet (Vitamin B-12) fluticasone 2 spray 07/16/21 07/19/21 Unknown History propionate 50 INTRANASAL DAILY mcg/actuation nasal spray,suspension nicotine 14 mg/24 TOPICAL 07/16/21 07/19/21 Unknown History hr daily transdermal patch Exam Exam Date and Time: July 21, 2021 0853 Height,Weight and Vital Signs: Height 5 ft 1 in Weight 71.668 kg Pertinent Lab Results Pertinent Lab Results: Laboratory Tests 06/02/21 11:59 WBC 12.1 H Hgb 11.7 L Hct 37.3 Plt Count 590 H Narrative Narrative: EKG 05/2021 NSR Assessment and Plan Assessment Anesthesia Assessment: Chart Reviewed Documented by User: Isaiah Pelayo MD 07/22/21 08:51 PMFSH Past Medical History Medical History Anxiety Carpal tunnel syndrome Depression Hypothyroidism Leucocytosis Multinodular thyroid Thrombocytosis Vitamin D deficiency Family History Family History Father HTN (hypertension) Mother HTN (hypertension) Family history of problems with anesthesia: No Surgical History Surgical History History of left inguinal hernia repair History of lumpectomy of right breast History of right breast biopsy (11/2017) Hx of shoulder surgery (09/2014) Hx of tubal ligation Pseudoangiomatous stromal hyperplasia of breast History of Problems with Anesthesia: No Social History Social History Alcohol intake: never Patient Tobacco Use Status: Current everyday Tobacco user Tobacco use type: Cigarette Cigarettes Per Day: 5 Years Smoked: 20 Smoked in Last 30 Days: Yes Second Hand Smoke Exposure: No Use of substances other than those prescribed or required for medical reasons: No Are you DNR?: No Advance Directives: No Advance Directives Information Provided: Yes Current occupational status: employed 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 Meds Allergies Allergy/AdvReac Type Severity Reaction Status Date / Time No Known Allergies Allergy Verified 07/22/21 06:37 [No Known Allergies*] Home Medications Medication Instructions Recorded Confirmed Last Taken Type duloxetine 60 mg 60 mg PO DAILY 04/15/20 07/19/21 Unknown History capsule,delayed release hydroxyzine HCl 50 mg PO BEDTIME 04/15/20 07/19/21 Unknown History 50 mg tablet cyanocobalamin 1,000 mcg PO 07/08/20 07/19/21 Unknown History (vitamin B-12) DAILY 1,000 mcg tablet (Vitamin B-12) fluticasone 2 spray 07/16/21 07/19/21 Unknown History propionate 50 INTRANASAL DAILY mcg/actuation nasal spray,suspension nicotine 14 mg/24 TOPICAL 07/16/21 07/19/21 Unknown History hr daily transdermal patch Exam Airway Mallampati Class: III TM Dist: >3cm Neck ROM: Full Loose/Missing/Broken Teeth: No Assessment and Plan Assessment Anesthesia Assessment: Anesthesia Plan Discussed Final Anesthetic Review Family History of Problems with Anesthesia: No History of Problems with Anesthesia: No NPO: Yes ASA Class: II Final Preanesthetic Review: No Changes in Pt Med Stat, Meds/Allgs Chart Reviewed, Consent Obtained/Reviewed and Anes Risks/Benef Reviewed Patient Risk: Low Procedure Risk: Low Anesthetic Plan Anesthetic Plan: GA Disposition: Standard PACU
[2021-07-22 06:20] VITALS: BP 118/84; PULSE 71; RESP 18; TEMP 36.7; O2SAT 96
[2021-07-22] MEDS: Lactated Ringers 1,000 ML 100 ML IVCONT (06:36)
--- NOTE | 2021-07-22 07:59 | MHC.SHP ---
Pre-Procedural Eval Section A Date of Service: 07/22/21 The patient is an INPATIENT: No Changes since office visit: No Cold of Flu in the past 2 weeks, No New Medical Problems, No Changes in Medication and No Patient answered all questions The History & Physical has been completed within 30 days and I have reviewed it.: Yes Section B Chief Complaint: carpal tunnel syndrome,lesion of ulnar nerve Allergies: Allergies Allergy/AdvReac Type Severity Reaction Status Date / Time No Known Allergies Allergy Verified 07/22/21 06:37 [No Known Allergies*] Plan I have reviewed the history and physical and performed a pertinent physical examination on my patient. No changes have occurred unless specified.
--- NOTE | 2021-07-22 07:59 | W.PM.OPN ---
Operative Note Operative Note Date of Service: 07/22/21 Narrative: Operative Note Narrative: Preop diagnosis: 1. Left Cubital tunnel syndrome 2. Left carpal tunnel syndrome Postop diagnosis: Same Procedure: 1. Left Cubital Tunnel Release 2. Left carpal tunnel release Surgeon: Miranda Daigle MD Anesthesia: General Findings: Thickening and fibrosis about the ulnar nerve at the cubital tunnel Implants: none Tourniquet time: 24 minutes EBL: 5.0 ml Specimen: none Drains: None Complications: None Disposition: Brought to the recovery room in stable condition Plan: Follow-up in 10-14 days for wound check, and suture removal Indications: The patient is 50 years old with left cubital tunnel syndrome and left carpal tunnel syndrome . The risks and benefits of operative treatment, including but not limited to risk of damage to blood vessels, nerves, tendons, infection, recurrence, persistent pain or numbness, incomplete resolution of preoperative symptoms, or need for further surgery were discussed with the patient and they wished to proceed with surgery. Procedure: Once consent was obtained patient was brought back to the operating suite and placed in the operating table in a supine position. Perioperative antibiotics and anesthesia was administered by the anesthesia team. The limb was prepped and draped in a standard surgical fashion, and a sterile tourniquet applied to the proximal aspect of the left upper extremity. The limb was elevated exsanguinated with Esmarch bandage and the tourniquet inflated to 250 mm of mercury for a total tourniquet time of 24 minutes. Once assured that we had a good block, a 1.5 cm longitudinal incision was made centered over the left carpal tunnel. The incision was made through the skin to the subcutaneous tissues using a #15 blade. Dissection was made down to the level of the transverse carpal ligament with care being taken to protect the palmar cutaneous nerve. Once the transverse carpal ligament was clearly visualized, a longitudinal incision was made in the transverse carpal ligament 1st using a #15 blade, then using tenotomy scissors under direct visualization. Care was taken to look for and protect the motor branch of the median nerve when seen in this area. Once satisfied with our carpal tunnel release the wound was irrigated with normal saline. A 6 cm gently curved but longitudinally oriented incision was made centered over the cubital tunnel of the left upper extremity. Incision was made through the skin to the subcutaneous tissues using a # 15 Blade. I then dissected down to the level of the medial epicondyle and the cubital tunnel using tenotomy scissors. Care was taken to protect the lateral antebrachial cutaneous nerve. The ulnar nerve was identified just posterior to the medial intermuscular septum. The ulnar nerve was released in a proximal to distal direction using tenotomy in iris scissors while directly visualizing and protecting the ulnar nerve. Thickening and fibrosis was appreciated about the ulnar nerve as it passed through the cubital tunnel. The ulnar nerve was assessed as I passed the elbow through full flexion and extension and was found to remain stable within its groove. At this point the tourniquet was deflated and hemostasis obtained with a brief period of local pressure and bipolar electrocautery. The wound was copiously irrigated with normal saline. The subcutaneous layer was closed with 4-0 Vicryl suture, and the skin edges were reapproximated with 5-0 nylon suture. The wound was infiltrated with some 0.25% plain Marcaine for postop pain control and sterile dressings and a posterior splint was applied. The patient appears to have tolerated the procedure well and with no complications. All digits were well vascularized conclusion of the case.
[2021-07-22 09:15] VITALS: BP 127/77; PULSE 96; RESP 16; TEMP 36.6; O2SAT 99
[2021-07-22 09:20] VITALS: BP 116/76; PULSE 82; RESP 18; O2SAT 97
[2021-07-22 09:25] VITALS: BP 124/79; PULSE 90; RESP 18; O2SAT 95
[2021-07-22 09:28] VITALS: BP 132/80; PULSE 84; RESP 18; TEMP 36.7; O2SAT 96
== END 2021-07-22 09:58 | disposition home or self-care (01) ==
PROVIDERS: PCP Internal Medicine; Visit Provider Orthopaedic Surgery
PROC: (CPT 64718; principal; 2021-07-22 07:30)
DX: G56.02 Carpal tunnel syndrome, left upper limb (principal); G56.22 Lesion of ulnar nerve, left upper limb; F41.1 Generalized anxiety disorder; F32.9 Major depressive disorder, single episode, unspecified; E03.9 Hypothyroidism, unspecified; F17.210 Nicotine dependence, cigarettes, uncomplicated; E55.9 Vitamin D deficiency, unspecified; Z79.899 Other long term (current) drug therapy
CPT/HCPCS: 64721; 64718; J0690; J1100; J1170; J2405

== ENCOUNTER 2021-07-28 12:46 | Outpatient (REF) | payer OTHER, SELFPAY | END 2021-07-28 12:47 | disposition home or self-care (01) | LOC: HO.LAB 12:46 | PROVIDERS: Visit Provider Internal Medicine Medical Oncology | DX: Z13.89 Encounter for screening for other disorder (principal) | CPT/HCPCS: 36415; 81206; 81207 ==

== ENCOUNTER → 2021-08-04 14:47 | Outpatient (BNVA) | payer OTHER, SELFPAY | PROVIDERS: PCP Internal Medicine; Visit Provider Orthopaedic Surgery | DX: Z48.811 Encounter for surgical aftercare following surgery on the nervous system (principal); G56.01 Carpal tunnel syndrome, right upper limb; G56.21 Lesion of ulnar nerve, right upper limb | CPT/HCPCS: 99212 ==

== ENCOUNTER 2021-09-09 07:29 | Outpatient (REF) | payer OTHER, SELFPAY ==
--- NOTE | 2021-09-09 08:17 | PM.OP ---
Brief Operative Note Date of Service: 09/09/21 Pre-op diagnosis: Multinodular Thyroid Procedure: This is doctor Laura Davis. This is an ultrasound-guided fine-needle aspiration report. Date of Examination: 09/09/2021 Indication: Multinodular Thyroid Porcedure: Procedure was explained to the patient. Alternatives, the risk and benefits were discussed. Written consent was obtained. A time-out was also obtained. After sterile preparation, fine-needle aspiration of a left lower pole 1.8 cm thyroid nodule was performed using direct ultrasound guidance to confirm accurate needle placement. Five aspirations were made using 27 gauge needles. Samples were submitted for cytology. 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 The patient tolerated the procedure well. Aftercare instructions were provided. Impression: Uncomplicated fine needle aspiration biopsy of a left lower pole 1.8 cm thyroid nodule under ultrasound guidance. Surgeon: Laura Davis, DO Was an Green Chain Off Bearer used for this Procedure?: No Estimated blood loss (mL): 0
[2021-09-09 10:13] LABS: Free T4 (Free Thyroxine) 0.87 ng/dL (0.71-1.85); Thyroid Stimulating Hormone 2.22 uIU/mL (0.32-4.0)
== END 2021-09-09 07:30 | disposition home or self-care (01) ==
LOC: HO.US 07:29
PROVIDERS: Visit Provider Internal Medicine
DX: E04.2 Nontoxic multinodular goiter (principal)
CPT/HCPCS: 10005; 36415; 84439; 84443; 88172; 88173; 88177

== ENCOUNTER → 2021-09-16 12:57 | Outpatient (REF) | payer OTHER, SELFPAY ==
--- NOTE | 2021-09-16 13:00 | HM_ITS ---
Conclusion: 1. Patient was monitor for total period of 3 days and 12 hours 2. Baseline rhythm was normal sinus rhythm with average heart of 81 beats per minute 3. Total of 155 PACs accounting for 0.04% of total burden account for rare PACs 4. Very rare PVCs noted 5. No patient reported events 6. No significant pauses or bradycardia MTDD
--- NOTE | 2021-09-16 13:00 | CA_ITS ---
Transthoracic Echocardiogram Patient (Last, First, Middle): Delia Perdomo, Gender: Female Date of : 1970 Age: 50 Procedure Date: 09/16/2021 Procedure Type: Transthoracic Echocardiogram Location: OP Height: 154.94 cm Weight: 69.85 kg BSA: 1.69 m2 Heart Rate: bpm BP: 132 / 70 mmHg Derrick Boat Leverman: DREW Paredes MD: Zan Lambert MD Symptoms: R00.2 - Palpitations Study Quality: Fair Conclusions: - Normal left ventricular size and systolic function. There is mildly increased left ventricular wall thickness. The visually estimated ejection fraction is between 60-65%. - Normal right ventricular cavity size and systolic function. - There is mild aortic valve stenosis. - There is mild dilatation of the ascending aorta measuring 3.50 cm and mild dilatation of the aortic arch measuring 3.20 cm. Findings Left Ventricle Normal left ventricular size and systolic function. There is mildly increased left ventricular wall thickness. The visually estimated ejection fraction is between 60-65%. There is no evidence of regional wall motion abnormalities. Diastolic function is normal for age. Right Ventricle Normal right ventricular cavity size and systolic function. Atria The left atrium is mildly dilated. The right atrium is normal in size. Aortic Valve Normal aortic valve structure and function. There is mild aortic valve stenosis. The peak aortic velocity is 2.09 m/s. The aortic valve area is 2.21 cm2. There is no aortic valve regurgitation. Mitral Valve Normal mitral valve structure and function. There is no mitral valve regurgitation. There is no mitral valve stenosis. Pulmonic Valve Normal pulmonic valve structure and function. There is trace pulmonic valve regurgitation. Tricuspid Valve Normal tricuspid valve structure and function. There is trace tricuspid valve regurgitation. Normal right atrial pressure. There is no evidence of pulmonary hypertension. Great Vessels There is mild dilatation of the ascending aorta measuring 3.50 cm and mild dilatation of the aortic arch measuring 3.20 cm. The visualized portions of the pulmonary artery and branches are normal. Venous The inferior vena cava is normal in size and collapses greater than 50% with inspiration. Pericardium/Pleural There is no evidence of pericardial effusion. Prior Study Comparison No prior study available for comparison. Measurements 2D Linear Measurements IVSd: 0.91 0.6-0.9/0.6-1.0 cm LVIDd: 4.72 3.9-5.3/4.2-5.9 cm LVIDd Index: 2.79 2.4-3.2/2.2-3.1 cm/m2 LVIDs: 2.96 2.0-3.6 cm LVPWd: 0.95 0.7-1.1 cm LA Diam: 3.40 2.7-3.8/3.0-4.0 cm LAIDs Index: 2.01 1.5-2.3 cm/m2 LV Mass: 185.98 67-162/88-224 g LV Mass Index: 110.05 43-95/49-115 g/m2 LVOT Diam: 2.00 3.0+(-)1.3 cm 2D Systolic Function EF 4C: 67.70 >55% EF 2C: 65.80 >55% EF BiP: 66.50 >55% Mitral Valve MV Pk E: 0.92 MV PK A: 0.57 MV Decel Time: 307.00 E/A: 1.60 E'Lateral: 13.60 E'Medial: 9.79 E/E' Med: 9.40 E/E' Lat: 6.70 PHT: 90.00 MVA PHT: 2.44 Decel Banner: 2.99 Aortic Valve AoV Pk Alejandro: 2.09 AoV Mn Alejandro: 1.44 AoV VTI: 0.41 AoV Pk Grad: 17.00 Aov Mn Grad: 9.00 [place] Cont.VTI: 2.21 LVOT LVOT Pk Alejandro: 1.37 LVOT Mn Alejandro: 0.90 LVOT VTI: 0.29 LVOT Pk Grad: 8.00 LVOT Mn Grad: 4.00 LVOT Diam: 2.00 LVOT Area: 3.14 Diastolic Function MV Pk E: 0.92 MV Pk A: 0.57 E/A: 1.60 E'Medial: 9.79 E/E' Med: 9.40 E' Laterial: 13.60 E/E' Lat: 6.70 Right Ventricle TAPSE (mm): 23.50 TVS' Alejandro: 12.30 Tricuspid Valve TR Pk Alejandro: 2.55 TR Pk Grad: 26.00 RA Press: 3.00 RVSP: 29.00 Great Vessels Aorta Sinus of Valsalva: 2.96 2.0-3.[address] [place]: 2.76 1.7-3.4 cm Ao Asc: 3.50 2.1-3.4 cm Ao Arch: 3.20 Updated in Other Vendor System with Status of Final Zan Lambert MD electronically signed on 09/17/2021 11:14:05 PM with status of Final
== END ==
LOC: HO.CARD 12:57
PROVIDERS: Visit Provider Internal Medicine Cardiovascular Disease
DX: R00.2 Palpitations (principal)
CPT/HCPCS: 93242; 93306

== ENCOUNTER → 2021-09-20 12:21 | Outpatient (BNVA) | payer OTHER, SELFPAY | PROVIDERS: PCP Internal Medicine; Referring Provider Internal Medicine; Visit Provider Internal Medicine Cardiovascular Disease | DX: I77.810 Thoracic aortic ectasia (principal); R00.2 Palpitations | CPT/HCPCS: 99212 ==

== ENCOUNTER → 2021-10-14 11:49 | Outpatient (BNVA) | payer OTHER, SELFPAY | PROVIDERS: PCP Internal Medicine; Visit Provider Internal Medicine | DX: E04.2 Nontoxic multinodular goiter (principal); E55.9 Vitamin D deficiency, unspecified; E03.9 Hypothyroidism, unspecified | CPT/HCPCS: Q3014 ==

== ENCOUNTER → 2021-12-27 13:11 | Outpatient (BNVA) | payer OTHER, SELFPAY | PROVIDERS: PCP Internal Medicine; Referring Provider Internal Medicine; Visit Provider Internal Medicine Cardiovascular Disease | DX: I77.810 Thoracic aortic ectasia (principal); R00.2 Palpitations; R42 Dizziness and giddiness; Z79.899 Other long term (current) drug therapy | CPT/HCPCS: 99212 ==

== ENCOUNTER 2022-02-08 13:36 | Emergency (ER) | payer OTHER, SELFPAY ==
--- NOTE | 2022-02-08 | ECG_ITS ---
Test Reason : ARM NUMBNESS Blood Pressure : / mmHG Vent. Rate : 052 BPM Atrial Rate : 052 BPM P-R Int : 124 ms QRS Dur : 074 ms QT Int : 400 ms P-R-T Axes : 049 035 026 degrees QTc Int : 372 ms Sinus bradycardia Low voltage QRS Borderline ECG When compared with ECG of 08-FEB-2022 14:00, Vent. rate has decreased BY 26 BPM Referred By: Obi Mclaughlin Electronically Signed By:FRANCHESCA LIN
--- NOTE | 2022-02-08 11:41 | ECG_ITS ---
Test Reason : numbness Blood Pressure : / mmHG Vent. Rate : 078 BPM Atrial Rate : 078 BPM P-R Int : 120 ms QRS Dur : 072 ms QT Int : 362 ms P-R-T Axes : 059 043 027 degrees QTc Int : 412 ms Normal sinus rhythm with sinus arrhythmia Low voltage QRS Borderline ECG When compared with ECG of 19-MAR-2019 16:13, No significant change was found Referred By: Obi Mclaughlin Electronically Signed By:FRANCHESCA LIN
[2022-02-08 13:56] VITALS: BP 141/100; PULSE 76; RESP 18; TEMP 36.5; O2SAT 98; BMI 29.5
[2022-02-08 16:38] VITALS: BP 156/86; PULSE 60; RESP 16; O2SAT 99
--- NOTE | 2022-02-08 17:01 | ED.GENADULT ---
HPI - General Adult General Chief complaint: Extremity Problem Stated complaint: abnormal blood pressure Time Seen by Provider: 02/08/22 16:32 Source: patient Mode of arrival: ambulatory Limitations: no limitations History of Present Illness HPI narrative: Patient is 51 years old with history of hypertension on amlodipine history of PACs hypothyroidism on levothyroxine, history of anxiety comes here for having left arm numbness headache body aches checked her blood pressure was 160/102 on arrival patient's blood pressure was 141/100 patient seems very anxious on arrival denies any use of any care caffeine or NSAIDs no chest pain patient does have history of 09/07 which shows only PACs patient also complaining of left arm numbness with no weakness Related Data Home Medications Medication Instructions Recorded Confirmed duloxetine 60 mg capsule,delayed 60 mg PO DAILY 04/15/20 12/27/21 release hydroxyzine HCl 50 mg tablet 50 mg PO BEDTIME 04/15/20 12/27/21 cyanocobalamin (vitamin B-12) 1,000 mcg PO DAILY 07/08/20 12/27/21 1,000 mcg tablet (Vitamin B-12) fluticasone propionate 50 2 spray intranasal DAILY 07/16/21 12/27/21 mcg/actuation nasal spray,suspension mirtazapine 7.5 mg tablet 7.5 mg PO BEDTIME 09/20/21 12/27/21 amlodipine 5 mg tablet 5 mg PO DAILY 10/14/21 12/27/21 Previous Rx's Medication Instructions Recorded ibuprofen 600 mg tablet 600 mg PO TID PRN pain #20 tabs 07/18/21 cholecalciferol (vitamin D3) 50 50 mcg PO DAILY 30 days #30 caps 08/16/21 mcg (2,000 unit) capsule levothyroxine 25 mcg tablet 25 mcg PO QAM #30 tabs 10/06/21 hydrochlorothiazide 25 mg tablet 25 mg PO QAM #30 tabs 02/08/22 Allergies Allergy/AdvReac Type Severity Reaction Status Date / Time No Known Allergies Allergy Verified 12/27/21 13:30 [No Known Allergies*] Review of Systems Review of Systems: Yes all other systems are reviewed and are negative PMFSH Past Medical History Medical History Anxiety Carpal tunnel syndrome Depression Hypothyroidism Leucocytosis Multinodular thyroid Thrombocytosis Vitamin D deficiency Surgical History History of carpal tunnel surgery History of left inguinal hernia repair History of lumpectomy of right breast History of right breast biopsy (11/2017) Hx of shoulder surgery (09/2014) Hx of tubal ligation Pseudoangiomatous stromal hyperplasia of breast Family History Family History Father HTN (hypertension) Mother HTN (hypertension) Social History Social History Household Members: Children Housing: Apartment Are you a primary healthcare market consultant to a significant other at home: Yes Do you presently have visiting nurse or other home services: No Alcohol intake: never Patient Tobacco Use Status: Current everyday Tobacco user Tobacco use type: Cigarette Years Smoked: 20 Second Hand Smoke Exposure: No Advance Directives: No Advance Directives Information Provided: No service: No Current occupational status: employed 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 Oriented X3. No acute distress. Anxious Eyes: PERRLA, No Nystagmus ENT: Pharynx normal. Oral Mucosa moist Neck: Normal inspection. Neck supple. CVS: Normal heart rate and rhythm. Pulses normal. Respiratory: No respiratory distress. Equal air entry bilateral, no wheezing/rales/rhonchi Abdomen: Soft and nontender. Bowel sounds are present, no mass palpable, no CVA tenderness Skin: Skin warm and dry. Normal skin color. Normal skin turgor. Extremities: No lower extremity edema. No calf tenderness Neuro: Oriented X 3. No motor deficit. No sensory deficit.No cerebellar signs , cranial nerves II-XII intact Medical Decision Making MDM Narrative Medical decision making narrative: Patient lab workup showed WBC count 16.1 platelet count 602K patient does have leukocytosis for last 6 months followed by PCP no signs of infection at this time will advise patient to follow-up with senior telecommunications specialist meanwhile will add hydrochlorothiazide 25 mg for blood pressure contro. Patient urine showed nitrite positive patient denies any symptoms l Lab Data Lab results reviewed: Yes I reviewed the patient's lab results. Result diagrams: 02/08/22 17:41 02/08/22 17:41 Labs: Lab Results 02/08/22 02/08/22 02/08/22 Range/Units 17:41 17:41 19:25 WBC 16.1 H (4.8-10.8) X10*3/uL RBC 4.68 (4.20-5.50) X10*6/uL Hgb 12.3 (12.0-16.0) g/dl Hct 38.4 (37.0-47.0) % MCV 82.1 (80.0-98.0) fL MCH 26.3 L (27.0-33.0) pg MCHC 32.0 (31.0-35.0) g/dl RDW 14.8 (11.0-16.0) % Plt Count 602 H (160-400) X10*3/uL MPV 9.3 L (9.4-12.3) fL Immature Gran % (Auto) 0.4 (0.0-0.4) % Neut % (Auto) 68.2 (45-73) % Lymph % (Auto) 24.4 (20-40) % [place] % (Auto) 5.2 (2-11) % Eos % (Auto) 1.5 (0-4) % Baso % (Auto) 0.3 (0-2) % Lymph # (Auto) 3.9 (1.2-4.9) X10*3/uL [place] # (Auto) 0.8 (0.1-1.2) X10*3/uL Eos # (Auto) 0.2 (0.0-0.4) X10*3/uL Baso # (Auto) 0.1 (0.0-0.2) X10*3/uL Abs Immat Gran (auto) 0.07 H (0.00-0.03) X10*3/uL Absolute Neuts (auto) 11.0 H (2.0-8.3) x10*3/uL Absolute Nucleated RBC 0.000 (0.0-0.012) X10*3/uL Nucleated RBC % (auto) 0.0 (0.0-0.2) /100WBC Sodium 137 (135-145) mmol/L Potassium 4.3 (3.3-5.1) mmol/L Chloride 105 (96-108) mmol/L Carbon Dioxide 24 (22-29) mmol/L Anion Gap 12 (12-20) BUN 11 (9-16) mg/dL Creatinine 0.73 (0.5-1.4) mg/dL Estim Creat Clear Calc 82.9 Estimated GFR > 60 Random Glucose 84 (60-115) mg/dL Calcium 9.4 (8.4-10.2) mg/dL Total Bilirubin < 0.2 (0.0-1.0) mg/dL AST 10 (5-31) U/L ALT 8 (0-31) U/L Alkaline Phosphatase 61 (39-117) U/L Total Protein 6.6 (6.5-8.0) g/dL Albumin 3.9 (3.5-5.0) g/dL TSH 2.30 (0.32-4.0) uIU/mL Urine Color Yellow Urine Appearance Clear Urine pH 6.0 (5.0-8.0) Ur Specific [place] 1.015 (1.005-1.025) Urine Protein Negative (Neg-Trace) mg/dL Urine Glucose (UA) Negative (Negative) mg/dL Urine Ketones Negative (Negative) mg/dL Urine Blood Negative (Negative) Urine Nitrite Positive H (Negative) Ur Leukocyte Esterase Negative (Negative) ECG Data Attestation: I personally reviewed and interpreted this ECG as follows: Interpretation: Sinus bradycardia heart rate 52 beats per min normal interval normal axis no acute ST-T change Discharge Plan Discharge Clinical Impression: Hypertension, Leukocytosis, Essential thrombocytosis Patient Disposition: Home, Self-Care Instructions: Chronic Hypertension (ED), Leukocytosis (ED) Additional Instructions: Continue amlodipine for blood pressure Add hydrochlorothiazide 25 mg daily for better blood pressure control Your white blood cells and platelet counts are elevated you need to see senior telecommunications specialist for further evaluation and treatment and that may be the cause for high blood pressure Normal blood pressure should be less than 130/80 Continuar amlodipina para la presi?n arterial Agregue hidroclorotiazida 25 mg al d?a para un mejor control de la presi?n arterial Nurys recuentos de gl?bulos blancos y plaquetas est?n elevados, necesita natasha a un hemat?logo para jessica evaluaci?n y tratamiento adicionales y aisha puede ser la causa de la presi?n arterial tracey. La presi?n arterial normal debe ser inferior a 130/80 Prescriptions: New hydrochlorothiazide 25 mg tablet 25 mg PO QAM Qty: 30 0RF No Action cholecalciferol (vitamin D3) 50 mcg (2,000 unit) capsule 50 mcg PO DAILY 30 Days Qty: 30 11RF levothyroxine 25 mcg tablet 25 mcg PO QAM Qty: 30 11RF cyanocobalamin (vitamin B-12) [Vitamin B-12] 1,000 mcg Tablet 1,000 mcg PO DAILY fluticasone propionate 50 mcg/actuation spray,suspension 2 spray intranasal DAILY ibuprofen 600 mg tablet 600 mg PO TID PRN (Reason: pain) Qty: 20 0RF duloxetine 60 mg capsule,delayed release(DR/EC) 60 mg PO DAILY hydroxyzine HCl 50 mg tablet 50 mg PO BEDTIME amlodipine 5 mg tablet 5 mg PO DAILY mirtazapine 7.5 mg tablet 7.5 mg PO BEDTIME Referrals: Eleno Dale MD [Physician] - 1 week Print Language: Malawian
[2022-02-08] MEDS: amLODIPine Besylate 2.5 MG TABLET PO (17:44)
[2022-02-08 17:45] LABS: MANUAL DIFF FLAG NO
[2022-02-08 17:47] LABS: Basophils Absolute Auto 0.1 X10*3/uL (0.0-0.2); Basophils Percent Auto 0.3 % (0-2); Eosinophils Absolute Auto 0.2 X10*3/uL (0.0-0.4); Eosinophils Percent Auto 1.5 % (0-4); Hematocrit 38.4 % (37.0-47.0); Hemoglobin 12.3 g/dl (12.0-16.0); Imm Gran Abs Auto 0.07 X10*3/uL (0.00-0.03); Imm Gran Pct Auto 0.4 % (0.0-0.4); Lymphocytes Absolute Auto 3.9 X10*3/uL (1.2-4.9); Lymphocytes Percent Auto 24.4 % (20-40); Mean Corpuscular Hemoglobin 26.3 pg (27.0-33.0); Mean Corpuscular Volume 82.1 fL (80.0-98.0); Mean Platelet Volume 9.3 fL (9.4-12.3); Monocytes Absolute Auto 0.8 X10*3/uL (0.1-1.2); Monocytes Percent Auto 5.2 % (2-11); Neutrophils Percent Auto 68.2 % (45-73); Platelet Count 602 X10*3/uL (160-400); Red Blood Count 4.68 X10*6/uL (4.20-5.50); Red Cell Distribution Width 14.8 % (11.0-16.0); White Blood Count 16.1 X10*3/uL (4.8-10.8)
[2022-02-08 18:15] LABS: Alanine Aminotransferase 8 U/L (0-31); Albumin Level 3.9 g/dL (3.5-5.0); Alkaline Phosphatase 61 U/L (39-117); Anion Gap 12 (12-20); Aspartate Amino Transferase 10 U/L (5-31); Bilirubin Total < 0.2 mg/dL (0.0-1.0); Blood Urea Nitrogen 11 mg/dL (9-16); Calcium 9.4 mg/dL (8.4-10.2); Carbon Dioxide 24 mmol/L (22-29); Chloride 105 mmol/L (96-108); Creatinine Clr Calc Pharmacy 82.9; Estimated Glomerular Filt Rate > 60; Glucose Random 84 mg/dL (60-115); Potassium 4.3 mmol/L (3.3-5.1); Sodium 137 mmol/L (135-145); Total Protein 6.6 g/dL (6.5-8.0)
[2022-02-08 19:29] VITALS: BP 168/94; PULSE 60; RESP 16
[2022-02-08 19:47] LABS: Appearance Urine Clear; Color Urine Yellow; Glucose Urine UA Negative (Negative); Leukocyte Esterase Urine Negative (Negative); Nitrite Urine Positive (Negative); Specific Gravity - Urine 1.015 (1.005-1.025); Urine Blood Negative (Negative); Urine Ketones Negative (Negative); Urine Protein Negative (Neg-Trace)
[2022-02-08 20:07] LABS: Bacteria Urine 4+ (None Seen); Hyaline Casts Urine 0-2 /LPF (0-2); RBC Urine 0-2 /HPF (0-2); UACC Culture Trigger YES; WBC Urine 0-5 /HPF (0-5)
== END 2022-02-08 20:31 | disposition home or self-care (01) ==
PROVIDERS: Emergency Provider Internal Medicine; PCP Internal Medicine
DX: D72.829 Elevated white blood cell count, unspecified (principal); I10 Essential (primary) hypertension; M79.10 Myalgia, unspecified site; R20.0 Anesthesia of skin; F17.210 Nicotine dependence, cigarettes, uncomplicated; Z71.6 Tobacco abuse counseling; Z79.899 Other long term (current) drug therapy
CPT/HCPCS: 36415; 80053; 81001; 84443; 85025; 87086; 87088; 87186; 93005; 99283; 99284

== ENCOUNTER 2022-02-23 13:52 | Outpatient (REF) | payer OTHER, SELFPAY ==
--- NOTE | 2022-02-23 14:00 | PFT_ITS ---
FLOWS: FEV1 105% of predicted at 2.63 L. FVC 105% of predicted at 3.27 L. FEV1 to FVC ratio of 0.81. No bronchodilator response. LUNG VOLUMES: Total lung capacity 103% of predicted at 4.78 L. Residual volume 101% of predicted at 1.66 L. Slow vital capacity 105% of predicted at 3.12 L. Expiratory reserve volume 73% of predicted at 0.67 L. Diffusion capacity is normal. IMPRESSION: No obstructive or restrictive ventilatory defect. No bronchodilator response. Essentially normal pulmonary function test. Tommie Heath MD AP/MODL / [id number]
== END 2022-02-23 13:53 | disposition home or self-care (01) ==
LOC: HO.RESP 13:52
PROVIDERS: PCP Internal Medicine; Visit Provider Internal Medicine
DX: R05.3 Chronic cough (principal)
CPT/HCPCS: 94060; 94727; 94729

== ENCOUNTER 2022-03-23 12:09 | Day surgery (SDC) | payer OTHER, SELFPAY ==
[2022-03-23] VITALS (9 sets, daily range): BP systolic 104–127; BP diastolic 41–82; PULSE 62–88; RESP 12–18; TEMP 35.8–36.5; O2SAT 99–100; BMI 29.2
--- NOTE | ~2022-03-23 | CT_ITS ---
EXAMINATION: CT GUIDED BONE MARROW BIOPSY CLINICAL INFORMATION: Leukocytosis/thrombocytosis. COMPARISON: None TECHNIQUE: Following explaining CT fluoroscopy-guided bone marrow biopsy of posterior iliac crest procedure, benefits and risk, a written consent was obtained. Patient was placed prone on fluoroscopy table and back area over the iliac crest was cleaned and draped in usual sterile manner with 2% chlorhexidine solution. 1% lidocaine was injected at puncture site. Through a small skin incision a 18-gauge Kyphon needle was advanced from the skin to the level of periosteum and through the periosteum into the left posterior iliac crest. The needle was hammered into the bone marrow. The stylet was withdrawn and 2 syringes one with EDTA and second with heparin was attached to the needle and bone marrow aspirated. The aspirate was handed to bio technologist. Subsequently coaxial 18-gauge needle was advanced and core bone marrow biopsy was obtained. After confirming adequate sampling the stylet was reintroduced and needle withdrawn. Patient on procedure extremely well. Conscious sedation was utilized and patient monitored by IR nurse for 20 minutes. FINDINGS: On prone images obtained of the pelvis no abnormality seen. CT fluoroscopy-guided left posterior iliac crest bone marrow biopsy and bone marrow aspiration x [address]/CT biopsy aspirate bone marrow IMPRESSION: Successful CT fluoroscopy-guided bone marrow biopsy performed. DLP: 209 mGy/cm. Sedation time: 20 minutes
[2022-03-23 12:46] LABS: MANUAL DIFF FLAG NO
[2022-03-23 12:48] LABS: Basophils Absolute Auto 0.1 X10*3/uL (0.0-0.2); Basophils Percent Auto 0.4 % (0-2); Eosinophils Absolute Auto 0.1 X10*3/uL (0.0-0.4); Eosinophils Percent Auto 1.2 % (0-4); Hematocrit 38.7 % (37.0-47.0); Hemoglobin 12.6 g/dl (12.0-16.0); Imm Gran Abs Auto 0.04 X10*3/uL (0.00-0.03); Imm Gran Pct Auto 0.4 % (0.0-0.4); Lymphocytes Absolute Auto 3.5 X10*3/uL (1.2-4.9); Lymphocytes Percent Auto 31.1 % (20-40); Mean Corpuscular HGB Conc 32.6 g/dl (31.0-35.0); Mean Corpuscular Hemoglobin 26.5 pg (27.0-33.0); Mean Corpuscular Volume 81.3 fL (80.0-98.0); Monocytes Absolute Auto 0.7 X10*3/uL (0.1-1.2); Monocytes Percent Auto 5.9 % (2-11); Neutrophils Absolute Auto 6.8 x10*3/uL (2.0-8.3); Platelet Count 645 X10*3/uL (160-400); Red Blood Count 4.76 X10*6/uL (4.20-5.50); White Blood Count 11.2 X10*3/uL (4.8-10.8)
[2022-03-23 13:01] LABS: Anion Gap 11 (12-20); Carbon Dioxide 27 mmol/L (22-29); Chloride 103 mmol/L (96-108); Potassium 3.5 mmol/L (3.3-5.1); Sodium 137 mmol/L (135-145)
[2022-03-23 14:32] LABS: Bone Marrow SEE SEPARATE REPORT
== END 2022-03-23 16:45 | disposition home or self-care (01) ==
PROVIDERS: Internal Medicine; PCP Internal Medicine; Visit Provider Radiology Diagnostic Radiology
PROC: (CPT 38221; principal; 2022-03-23 13:30)
DX: D72.829 Elevated white blood cell count, unspecified (principal); D75.839 Thrombocytosis, unspecified
CPT/HCPCS: 36415; 38221; 38222; 80051; 85025; 85610; 85730; 88184; 88185; 88237; 88264; 88305; 88311; 88313; 99152; J1642; J2250; J3010

== ENCOUNTER → 2022-05-04 14:21 | Outpatient (BNVA) | payer OTHER, SELFPAY | PROVIDERS: PCP Internal Medicine; Referring Provider Internal Medicine; Visit Provider Internal Medicine Cardiovascular Disease | DX: I77.810 Thoracic aortic ectasia (principal); R00.2 Palpitations | CPT/HCPCS: 99212 ==

== ENCOUNTER → 2022-05-18 13:42 | Outpatient (REF) | payer OTHER, SELFPAY ==
--- NOTE | 2022-05-18 13:46 | HM_ITS ---
Cardiac event monitor Indication: Palpitations Technique: Patient was accepted cardiac event monitor on 05/18/2022 for total period of 30 days. Compliance was reported at 58%. Quality of tracings are adequate Findings: Baseline was normal sinus rhythm with lowest heart rate of 45 beats per minute and maximum heart rate 125 beats per minute. Rare ectopy was noted. No other significant sustained arrhythmias noted. Frequent sinus tachycardia with heart rate about 100 beats per minute 32% of the time. No patient reported symptoms or events. Conclusion: 1. Baseline was normal sinus rhythm with frequent sinus tachycardia, 32% of the time 2. No significant arrhythmias 3. No patient reported events MTDD
== END ==
LOC: HO.CARD 13:42
PROVIDERS: PCP Internal Medicine; Visit Provider Internal Medicine Cardiovascular Disease
DX: R00.2 Palpitations (principal)
CPT/HCPCS: 93270

== ENCOUNTER 2022-05-25 08:41 | Outpatient (REF) | payer OTHER, SELFPAY | END 2022-05-25 08:42 | disposition home or self-care (01) | LOC: HO.MAMMO 08:41 | PROVIDERS: PCP Internal Medicine; Visit Provider Internal Medicine | DX: Z13.89 Encounter for screening for other disorder (principal) ==

== ENCOUNTER 2022-06-29 09:37 | Outpatient (REF) | payer OTHER, SELFPAY ==
--- NOTE | ~2022-06-29 | MM_ITS ---
EXAMINATION: MM SCREENING DIGITAL BREAST TOMOSYNTHESIS, BILATERAL CLINICAL INFORMATION: Screening. Asymptomatic. Status post excision right breast mass consistent with PASH, 07/16/2020. The lifetime risk of breast cancer based on the Tyrer-Cuzick Model is 6%. COMPARISON: Mammography: 07/16/2020, 06/11/2020, 11/02/2018, 11/23/2017, 10/25/2017 TECHNIQUE: Digital breast tomosynthesis is performed in both the craniocaudal and mediolateral oblique views along with computer-aided detection (CAD). Synthesized 2D images are generated from the tomosynthesis. FINDINGS: The breasts are extremely dense, which lowers the sensitivity of mammography (ACR BI-RADS breast composition Category d). There are scattered bilateral punctate round calcifications again seen in both breasts. The axilla and skin contours are unremarkable. The right breast shows no interval mass or architectural abnormality. The left MLO view has 0.7 cm asymmetric density just inferior to posterior nipple line approximately 8-9 cm from nipple. Patient will be recalled for additional imaging. MM/MM tomosynthesis screening BI IMPRESSION: Left: -Asymmetric density on MLO view just inferior to posterior nipple line 8-9 cm from nipple. Right: -No mammographic evidence of malignancy. ASSESSMENT: BI-RADS 0: Incomplete - Need Additional Imaging Evaluation RECOMMENDATION: 1. Additional views of the left breast (spot MLO, spot ML). 2. Targeted ultrasound if warranted after review of the additional views. 3. Radiology department staff will contact the patient for additional imaging. This patient's information was entered into a reminder system with a target due date for their next mammogram.
== END 2022-06-29 09:38 | disposition home or self-care (01) ==
LOC: HO.MAMMO 09:37
PROVIDERS: PCP Internal Medicine; Visit Provider Internal Medicine
DX: Z12.31 Encounter for screening mammogram for malignant neoplasm of breast (principal)
CPT/HCPCS: 77063; 77067

== ENCOUNTER 2022-07-11 13:17 | Outpatient (REF) | payer OTHER, SELFPAY ==
--- NOTE | ~2022-07-11 | MM_ITS ---
EXAMINATION: MM DIAGNOSTIC DIGITAL BREAST TOMOSYNTHESIS, LEFT US DIAGNOSTIC ULTRASOUND BREAST, RIGHT CLINICAL INFORMATION: Recall from screening for asymmetric density left breast MLO view just inferior to posterior nipple line. At time of appointment, patient also noted 1 month history contralateral right breast pain lateral aspect. Status post excision right breast lesion (PASH), 07/16/2020. COMPARISON: Mammography: 06/29/2022, 07/16/2020, 06/11/2020; right breast ultrasound 06/22/2020 TECHNIQUE: Digital breast tomosynthesis is performed. 2D images are generated from the tomosynthesis. The following views are obtained: Spot left MLO, spot left ML. Ultrasound right breast is targeted to the areas of clinical concern outer breast. Patient is able to point to the symptomatic area at time of imaging. Grayscale imaging and color Doppler are performed without and with harmonics. FINDINGS: The breasts are extremely dense, which lowers the sensitivity of mammography (ACR BI-RADS breast composition Category d). The additional spot views left breast show no persistent asymmetric density. The fibroglandular tissue appears similar to prior exams. No developing density or architectural abnormality. Ultrasound right breast demonstrates no cystic or solid mass or architectural abnormality. There is no skin thickening or edema tracking in soft tissue planes. No hyperemia on color Doppler. Results are discussed with the patient at time of visit, using an interpreter deaf. MM/MM tomosynthesis added views L IMPRESSION: 1. Additional spot views left breast show no persistent asymmetric density. 2. Unremarkable right breast ultrasound. ASSESSMENT: BI-RADS 1: Negative RECOMMENDATION: 1. Patient's right breast pain should be managed based on the clinical impression. 2. Otherwise, routine annual screening mammography. This patient's information was entered into a reminder system with a target due date for their next mammogram.
--- NOTE | ~2022-07-11 | XR_ITS ---
EXAMINATION: XR LUMBAR SPINE XR HIP, LEFT CLINICAL INFORMATION: Left hip and back pain worsening since 3 weeks. COMPARISON: None TECHNIQUE: Left hip 2 views. Lumbar spine 6 views. FINDINGS: LEFT HIP: The left hip joint space is maintained normal. No visible fracture, dislocation or subluxation. No bony erosive changes. The soft tissues are normal. LUMBAR SPINE: There is normal lumbar lordosis. The vertebral heights and alignment are normal. There is mild loss of L5-S1 disc heights. Rest of the disc heights are normal. There is no pars defect or listhesis. No acute fracture, lytic or sclerotic process seen. The SI joints are symmetrical and normal. XR/XR lumbar spine 4V min IMPRESSION: 1. Unremarkable left hip exam. 2. Mild degenerative disc changes L5-S1 disc level. No visible acute fracture, dislocation or listhesis seen.
--- NOTE | ~2022-07-11 | XR_ITS ---
EXAMINATION: XR LUMBAR SPINE XR HIP, LEFT CLINICAL INFORMATION: Left hip and back pain worsening since 3 weeks. COMPARISON: None TECHNIQUE: Left hip 2 views. Lumbar spine 6 views. FINDINGS: LEFT HIP: The left hip joint space is maintained normal. No visible fracture, dislocation or subluxation. No bony erosive changes. The soft tissues are normal. LUMBAR SPINE: There is normal lumbar lordosis. The vertebral heights and alignment are normal. There is mild loss of L5-S1 disc heights. Rest of the disc heights are normal. There is no pars defect or listhesis. No acute fracture, lytic or sclerotic process seen. The SI joints are symmetrical and normal. XR/XR hip LT min 2V IMPRESSION: 1. Unremarkable left hip exam. 2. Mild degenerative disc changes L5-S1 disc level. No visible acute fracture, dislocation or listhesis seen.
== END 2022-07-11 13:18 | disposition home or self-care (01) ==
LOC: HO.MAMMO 13:17
PROVIDERS: Absent Provider Nurse Practitioner Primary Care; Visit Provider Internal Medicine
DX: R92.2 Inconclusive mammogram (principal); M54.42 Lumbago with sciatica, left side; M25.552 Pain in left hip
CPT/HCPCS: 72110; 73502; 76642; 77061; 77065

== ENCOUNTER 2022-09-15 15:07 | Outpatient (REF) | payer OTHER, SELFPAY ==
--- NOTE | ~2022-09-15 | US_ITS ---
EXAMINATION: US THYROID CLINICAL INFORMATION: Hypothyroidism, unspecified. COMPARISON: Ultrasound soft tissue head/neck thyroid dated 04/14/2021 and 01/06/2021. TECHNIQUE: Linear transducer grayscale and color Doppler examination with attention to the region of the thyroid. FINDINGS: SIZE: Measurements of the thyroid lobes and nodules are given in sagittal, anteroposterior and transverse dimensions respectively. Right Thyroid Lobe: 3.7 x 2.1 x 2.2 cm, volume 8.9 mL. Previously 3.7 x 1.5 x 2.3 cm, volume 6.7 mL. Parenchyma: The gland echotexture is heterogeneous. Thyroid vascularity is increased. Left Thyroid Lobe: 4.1 x 1.8 x 1.7 cm, volume 6.6 mL. Previously 4.1 x 1.5 x 1.7 cm, volume 5.2 mL. Parenchyma: The gland echotexture is heterogeneous. Thyroid vascularity is increased. Isthmus: 0.3 cm in maximum AP dimension. Previously 0.2 cm. Estimated total number of nodules greater than or equal to 1 cm: 1. Communications Equipment Installer nodules are described as follows: 1. Location: Right mid. Size: 0.9 x 0.6 x 0.8 cm, volume 0.2 mL. Previously: 0.8 x 0.5 x 0.8 cm, volume 0.2 mL. Nodule characteristics: Composition: Solid/almost completely solid (2). Echogenicity: Hyperechoic (1). Shape: Not taller than wide (0). Margins: Smooth (0). Echogenic Foci: None (0). ACR TI-RADS total points: 3 Previous: 3 ACR TI-RADS category: 3 Previous: 3 Significant change in size (>/= 20% in 2 dimensions and minimal increase of 2 mm or 50% or greater increase in volume): No Change in features: No Change in ACR TI-RADS risk category: No 2. Location: Left mid. Size: 0.5 x 0.5 x 0.5 cm, volume 0.06 mL. Previously: 0.6 x 0.5 x 0.5 cm, volume 0.1 mL. Nodule characteristics: Composition: Solid/almost completely solid (2). Echogenicity: Hyperechoic (1). Shape: Not taller than wide (0). Margins: Smooth (0). Echogenic Foci: None (0). ACR TI-RADS total points: 3 Previous: 3 ACR TI-RADS category: 3 Previous: 3 Significant change in size (>/= 20% in 2 dimensions and minimal increase of 2 mm or 50% or greater increase in volume): Yes Change in features: No Change in ACR TI-RADS risk category: No 3. Location: Left inferior. Size: 1.5 x 0.9 x 1.0 cm, volume 0.7 mL. Previously: 1.8 x 1.0 x 0.8 cm, volume 0.7 mL. Nodule characteristics: Composition: Mixed cystic and solid (1). Echogenicity: Isoechoic (1). Shape: Taller than wide (3). Margins: Ill-defined (0). Echogenic Foci: Macrocalcifications (1). ACR TI-RADS total points: 6 Previous: 6 ACR TI-RADS category: 4 Previous: 4 Significant change in size (>/= 20% in 2 dimensions and minimal increase of 2 mm or 50% or greater increase in volume): No Change in features: No Change in ACR TI-RADS risk category: No NODES: In the mid left cervical region, a 1.9 x 0.7 x 0.6 cm reniform, nonpathologically enlarged lymph node is seen. There is no sizable lymphadenopathy. US/US thyroid IMPRESSION: 1. Relatively stable bilateral thyroid nodules are seen, as detailed. Recommend continued thyroid ultrasound surveillance. 2. There is a borderline goiter. 3. There is heterogeneous thyroid echotexture and increase in vascularity, which can be associated with thyroiditis. ACR TI-RADS RECOMMENDATION REFERENCE: Ultrasound-guided fine-needle aspiration, followup ultrasound, no further follow up. * TR1 (0 point) and TR2 (2 points): No FNA or follow up * TR3 (3 points): FNA if more than or equal to 2.5 cm in maximum dimension, followup ultrasound in 1, 3 and 5 years if 1.5 to 2.4 cm in maximum dimension. * TR4 (4-6 points): FNA if more than or equal to 1.5 cm in maximum dimension, followup ultrasound in 1, 2, 3 and 5 years if 1 to 1.4 cm in maximum dimension. * TR5 (more than or equal to 7 points): FNA if more than or equal to 1 cm in maximum dimension, followup ultrasound every year for 5 years if 0.5 to 0.9 cm in maximum dimension. * TR3, TR4 or TR5 nodules that are below the size threshold for follow up receive no follow up.
== END 2022-09-15 15:08 | disposition home or self-care (01) ==
LOC: HO.US 15:07
PROVIDERS: Visit Provider Internal Medicine
DX: E03.9 Hypothyroidism, unspecified (principal); E04.2 Nontoxic multinodular goiter
CPT/HCPCS: 76536

== ENCOUNTER 2022-10-06 12:08 | Outpatient (REF) | payer OTHER, SELFPAY ==
[2022-10-06 13:24] LABS: Free T4 (Free Thyroxine) 0.96 ng/dL (0.71-1.85); Thyroid Stimulating Hormone 2.57 uIU/mL (0.32-4.0); Vitamin D 25-OH Total 43.4 ng/mL (>30)
== END 2022-10-06 12:09 | disposition home or self-care (01) ==
LOC: HO.LAB 12:08
PROVIDERS: Visit Provider Internal Medicine
DX: E04.2 Nontoxic multinodular goiter (principal); E55.9 Vitamin D deficiency, unspecified; E03.9 Hypothyroidism, unspecified
CPT/HCPCS: 36415; 82306; 84439; 84443

== ENCOUNTER 2023-01-16 13:36 | Outpatient (AMB) | payer OTHER, SELFPAY ==
[2023-01-16 13:40] VITALS: BP 120/70; PULSE 85
--- NOTE | 2023-01-16 13:40 | A.OFFVIS_ITS ---
Intake Vital Signs 01/16/23 13:40 Height 5 ft 1 in Weight 158 lb 11.725 oz BMI 30.0 BP 120/70 Blood Pressure Location Lt brachial Position Sitting Pulse 85 Pulse Source Pulse Oximeter Intake Visit Reasons: R/S 4 month follow up Intake Note: r/s 4 month f/u patient having some palpitations Airline Lounge Receptionist Required: Yes Airline Lounge Receptionist Name: [id number] [id number] Allergies No Known Allergies [No Known Allergies*] Allergy (Verified 01/16/23 14:34) Medication List - Last Reconciled 01/16/23 by Krystal Salazar NP amlodipine 5 mg PO DAILY cholecalciferol (vitamin D3) 50 mcg PO DAILY 30 days cyanocobalamin (vitamin B-12) (Vitamin B-12) 1,000 mcg PO DAILY duloxetine 1 cap PO DAILY fluticasone propionate 50 mcg/actuation 2 sprays intranasal DAILY hydrochlorothiazide 12.5 mg PO DAILY levothyroxine 25 mcg PO QAM metoprolol succinate ER 50 mg PO DAILY 30 days mirtazapine 7.5 mg PO BEDTIME omeprazole 20 mg PO DAILY HPI HPI Comments History of Present Illness Details 52-year-old female presents today for a follow-up on her cardiac event monitor and palpitations. Information taken with the help of a certified training development specialist. She reports she is still getting palpitations about three times a week which she reports feels like it is her heart is beating fast. When she has the palpitations she will also get dizzy. Which she will sit or lay down to help them reside. Denies chest discomfort or shortness of breath. Reports checking her blood pressures at home and they have been stable. She reports cutting back on caffeine to 1 cup of coffee a day. She has been taking metoprolol succinate 25mg QD with no concerns. [facility] Medical History Anxiety Carpal tunnel syndrome Depression Hypothyroidism Leucocytosis Multinodular thyroid Thrombocytosis Vitamin D deficiency Surgical History History of carpal tunnel surgery History of left inguinal hernia repair History of lumpectomy of right breast History of right breast biopsy (11/2017) Hx of shoulder surgery (09/2014) Hx of tubal ligation Pseudoangiomatous stromal hyperplasia of breast Family History Father HTN (hypertension) Mother HTN (hypertension) Social History Household Members: Children Housing: Apartment Are you a primary director of healthcare systems to a significant other at home: Yes Do you presently have visiting nurse or other home services: No Alcohol intake: never Patient Tobacco Use Status: Current everyday Tobacco user Tobacco use type: Cigarette Years Smoked: 20 Second Hand Smoke Exposure: No service: No Current occupational status: employed 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 Review of Systems Const All systems reviewed & are unremarkable except as noted in HPI and below Denies body aches, Denies chills, Denies fatigue, Denies fever(s), Denies weakness, Denies weight gain and Denies weight loss Eyes Reports no additional complaints ENT Reports no additional complaints and Reports dizziness Card Denies chest pain, Denies chest pain at rest, Denies chest pain with activity, Denies rapid heart rate, Denies pedal edema, Denies edema, Denies leg edema, Denies lightheadedness, Denies palpitations, Denies dyspnea, Denies dyspnea on exertion and Denies orthopnea Resp Reports as per HPI, Denies cough, Denies dyspnea and Denies dyspnea on exertion GI Reports as per HPI, Denies hematochezia and Denies change in stool character Musc Denies numbness, Denies radiating pain into limb and Denies tingling Neuro Reports dizziness, Denies numbness, Denies tingling and Denies weakness Endo Denies fatigue and Denies palpitations Physical Exam Vital Signs: Last Vital Signs Pulse 85 01/16/23 13:40 BP 120/70 01/16/23 13:40 BMI result Body Mass Index 30.0 Const General: cooperative, healthy appearing, no acute distress, alert and awake Orientation/consciousness: patient oriented x3 HEENT Head: Yes normal to inspection Eyes General: appearance normal, both eyes and all related structures Neck Neck: Yes normal visual inspection and Yes no JVD Resp Effort & Inspection: normal respiratory effort Auscultation: clear to auscultation bilaterally Cardio Jugular venous distension: no JVD Palpation: normal PMI Rate: regular rate Rhythm: regular rhythm Heart sounds: S1 normal heart sound present, S2 normal heart sound present, no click, no gallops and no murmurs Peripheral pulses: Peripheral pulses 2+ throughout GI Inspection: Yes normal to inspection Skin General skin exam: no rashes or lesions noted Neuro General: patient oriented x3, gait normal and moves all extremities Extrem General: Yes normal to inspection Psych Appearance: grossly normal Assessment & Plan Assessment & Plan (1) Sinus tachycardia: Code(s): R00.0 - Tachycardia, unspecified (2) Palpitations: Code(s): R00.2 - Palpitations (3) Mild dilation of ascending aorta: Code(s): I77.810 - Thoracic aortic ectasia Plan She has mild dilation of ascending aorta noticed on the electrocardiogram in August 2021 - will repeat before next visit. Continue amlodipine 5mg. Importance of blood pressure control discussed. She has a blood pressure cuff at home and checks her blood pressure periodically.? Cardiac Event Monitor showed sinus tachycardia. Will increase her metoprolol succinate to 50mg QD since these palipatations are bothersome to her. Advised to continue to avoid caffeine and monitor blood pressure. She will follow-up with Dr. Lambert in 6 months or sooner if needed. Orders: Orders CA echo transthoracic complete Today I77.810 - Thoracic aortic ectasia, R00.2 - Palpitations Medications: Changed From metoprolol succinate ER (Toprol XL) 25 mg PO DAILY 60 tabs 3RF R00.2 - Palpitations To metoprolol succinate ER 50 mg PO DAILY 30 days 30 tabs 3RF R00.2 - Palpitations Coding Level of Care Code Est Pt Level 3 (43503) Diagnoses Sinus tachycardia R00.0 Palpitations R00.2 Mild dilation of ascending aorta I77.810
== END 2023-01-16 14:16 | disposition home or self-care (01) ==
PROVIDERS: PCP Student in an Organized Health Care Education/Training Program; Visit Provider Nurse Practitioner
DX: R00.0 Tachycardia, unspecified (principal); R00.2 Palpitations; I77.810 Thoracic aortic ectasia
CPT/HCPCS: 99213

== ENCOUNTER → 2023-01-16 13:36 | Outpatient (BNVA) | payer OTHER, SELFPAY | PROVIDERS: PCP Student in an Organized Health Care Education/Training Program; Visit Provider Nurse Practitioner | DX: I77.810 Thoracic aortic ectasia (principal); R00.2 Palpitations; R00.0 Tachycardia, unspecified | CPT/HCPCS: 99212 ==

== ENCOUNTER 2023-02-08 10:56 | Outpatient (REF) | payer OTHER, SELFPAY ==
[2023-02-08 14:11] LABS: Erythrocyte Sedimentation Rate 3 MM/HR (0-20)
[2023-02-08 14:30] LABS: Folate 11.4 ng/mL (> or = 4.0); Vitamin B12 1782 pg/mL (200-900)
[2023-02-08 19:16] LABS: C Reactive Protein 0.18 mg/dL (< or = 0.50); Iron 38 mcg/dL (30-160); Percent Iron Saturation 16 % (15-50); Total Iron Binding Capacity 241 mcg/dL (228-428); Unsaturated Iron Binding 203 ug/dL
[2023-02-08 19:29] LABS: Ferritin 12 ng/mL (10-250)
[2023-02-11 00:13] LABS: TS Negative Control Passed; TS Panel A 0; TS Panel B 0; TS Positive Control Passed; TSpotTB Negative (Negative)
== END 2023-02-08 10:57 | disposition home or self-care (01) ==
LOC: HO.HHCL 10:56
PROVIDERS: Visit Provider Student in an Organized Health Care Education/Training Program
DX: Z11.1 Encounter for screening for respiratory tuberculosis (principal); D75.839 Thrombocytosis, unspecified; Z13.0 Encounter for screening for diseases of the blood and blood-forming organs and certain disorders involving the immune mechanism
CPT/HCPCS: 36415; 82607; 82728; 82746; 83540; 85652; 86140; 86481

== ENCOUNTER 2023-03-01 11:40 | Outpatient (REF) | payer OTHER, SELFPAY ==
[2023-03-01 13:36] LABS: Anion Gap 12 (12-20); Blood Urea Nitrogen 11 mg/dL (9-16); Calcium 10.2 mg/dL (8.4-10.2); Carbon Dioxide 26 mmol/L (22-29); Chloride 102 mmol/L (96-108); Estimated Glomerular Filt Rate > 60; Glucose Random 94 mg/dL (60-115); Potassium 3.8 mmol/L (3.3-5.1); Sodium 136 mmol/L (135-145)
[2023-03-04 03:34] LABS: HPV mRNA E6/E7 rflx Not Detected (Not Detected)
== END 2023-03-01 11:41 | disposition home or self-care (01) ==
LOC: HO.HHCL 11:40
PROVIDERS: Advanced Practice Midwife; Visit Provider Internal Medicine
DX: Z12.4 Encounter for screening for malignant neoplasm of cervix (principal); Z11.51 Encounter for screening for human papillomavirus (HPV); I10 Essential (primary) hypertension
CPT/HCPCS: 36415; 80048; 87624; 88142

== ENCOUNTER 2023-03-12 16:35 | Outpatient (REF) | payer OTHER, SELFPAY ==
[2023-03-13 17:29] LABS: CDiff Gene PCR NEGATIVE (Negative)
== END 2023-03-12 16:36 | disposition home or self-care (01) ==
LOC: HO.HHCLNP 16:35
PROVIDERS: Visit Provider Student in an Organized Health Care Education/Training Program
DX: R19.7 Diarrhea, unspecified (principal)
CPT/HCPCS: 87493

== ENCOUNTER 2023-03-13 14:07 | Outpatient (REF) | payer OTHER, SELFPAY ==
[2023-03-14 07:10] LABS: CT PCR NOT DETECTED (Not Detect.); NG PCR NOT DETECTED (Not Detect.)
== END 2023-03-13 14:08 | disposition home or self-care (01) ==
LOC: HO.HHCL 14:07
PROVIDERS: Visit Provider Student in an Organized Health Care Education/Training Program
DX: Z20.2 Contact with and (suspected) exposure to infections with a predominantly sexual mode of transmission (principal)
CPT/HCPCS: 0353U

== ENCOUNTER 2023-03-14 12:34 | Outpatient (REF) | payer OTHER, SELFPAY ==
--- NOTE | ~2023-03-14 | US_ITS ---
EXAMINATION: ULTRASOUND PELVIC, COMPLETE CLINICAL INFORMATION: Abnormal uterine bleeding. COMPARISON: Pelvic ultrasound 12/03/2020. TECHNIQUE: Pelvic ultrasound was performed using transvaginal and transabdominal technique without spectral doppler. FINDINGS: The uterus is of normal size and echogenicity measuring 9.6 x 5.1 x 7.7 cm. There are multiple fibroids which are slightly enlarged compared to the previous study measuring 3.8 cm in the left body (previous 3.6 cm), 2.2 cm in the posterior body (previous 1.5 cm), and 2.2 cm in the right lower uterine segment (previous 2.3 cm). A regular homogeneous endometrium is identified measuring 0.9 cm in thickness. The right ovary measures 3.0 x 1.4 x 1.6 cm, volume 3.5 mL. The right ovary appears normal. The left ovary measures 1.7 x 1.0 x 1.5 cm, volume 1.3 mL. The left ovary appears normal. There is no pelvic free fluid. US/US pelvic and transvaginal IMPRESSION: LMP not provided. The endometrial stripe is 0.9 cm which is abnormally thickened in a postmenopausal patient with abnormal uterine bleeding. If the patient is not postmenopausal, the endometrial stripe thickness is within normal limits. Please correlate clinically and consider endometrial biopsy if clinically appropriate. Slightly enlarged uterine fibroids compared to prior.
[2023-03-14 13:33] LABS: MANUAL DIFF FLAG NO
[2023-03-14 13:56] LABS: Basophils Percent Auto 0.3 % (0-2); Eosinophils Absolute Auto 0.1 X10*3/uL (0.0-0.4); Eosinophils Percent Auto 1.1 % (0-4); Hematocrit 40.3 % (37.0-47.0); Hemoglobin 12.7 g/dl (12.0-16.0); Imm Gran Abs Auto 0.06 X10*3/uL (0.00-0.03); Imm Gran Pct Auto 0.5 % (0.0-0.4); Lymphocytes Absolute Auto 3.5 X10*3/uL (1.2-4.9); Lymphocytes Percent Auto 26.6 % (20-40); Mean Corpuscular HGB Conc 31.5 g/dl (31.0-35.0); Mean Corpuscular Hemoglobin 26.2 pg (27.0-33.0); Mean Corpuscular Volume 83.3 fL (80.0-98.0); Mean Platelet Volume 9.6 fL (9.4-12.3); Monocytes Absolute Auto 0.8 X10*3/uL (0.1-1.2); Monocytes Percent Auto 5.8 % (2-11); Neutrophils Absolute Auto 8.6 x10*3/uL (2.0-8.3); Neutrophils Percent Auto 65.7 % (45-73); Platelet Count 682 X10*3/uL (160-400); Red Blood Count 4.84 X10*6/uL (4.20-5.50); Red Cell Distribution Width 13.7 % (11.0-16.0)
[2023-03-14 15:14] LABS: Lactate Dehydrogenase 190 U/L (122-220)
[2023-03-14 15:34] LABS: Thyroid Stimulating Hormone 0.45 uIU/mL (0.32-4.0)
== END 2023-03-14 12:35 | disposition home or self-care (01) ==
LOC: HO.US 12:34
PROVIDERS: Absent Provider Internal Medicine Endocrinology, Diabetes & Metabolism; PCP Student in an Organized Health Care Education/Training Program; Referring Provider Internal Medicine; Visit Provider Advanced Practice Midwife
DX: E04.2 Nontoxic multinodular goiter (principal); D72.829 Elevated white blood cell count, unspecified; D21.9 Benign neoplasm of connective and other soft tissue, unspecified; N93.9 Abnormal uterine and vaginal bleeding, unspecified
CPT/HCPCS: 36415; 76830; 76856; 83615; 84439; 84443; 85025

== ENCOUNTER 2023-03-21 18:36 | Outpatient (REF) | payer OTHER, SELFPAY | END 2023-03-21 18:37 | disposition home or self-care (01) | LOC: HO.HHCLNP 18:36 | PROVIDERS: Visit Provider Student in an Organized Health Care Education/Training Program | DX: R19.7 Diarrhea, unspecified (principal) | CPT/HCPCS: 87177; 87209; 87493; 87507 ==

== ENCOUNTER 2023-03-22 12:56 | Outpatient (AMB) | payer OTHER, SELFPAY ==
--- NOTE | 2023-03-22 12:57 | MHC.OFFVIS ---
Intake Vital Signs 03/22/23 12:58 Height 5 ft 1 in Weight 158 lb 4.67 oz BMI 29.9 BP 116/74 Blood Pressure Location Rt brachial Position Sitting Pulse 95 Pulse Source Pulse Oximeter Intake Visit Reasons: F/U NTMNG/ CONFIRMED Intake Note: New patient to Dr. Waggoner present today for NTMNG follow up visit. Previously followed by Dr. Stearns. Injection Molding Machine Offbearer Required: Yes Injection Molding Machine Offbearer Language: Hand Fabric Cutter Name: Bernadette, Medical Staff Information Interpreted: non-clinical & clinical Accompanied by: Self / Same As Patient Allergies No Known Allergies [No Known Allergies*] Allergy (Verified 03/22/23 12:59) Medication List - Last Reconciled 03/22/23 by Dickson Waggoner MD amlodipine 10 mg PO DAILY cholecalciferol (vitamin D3) 50 mcg PO DAILY 30 days cyanocobalamin (vitamin B-12) (Vitamin B-12) 1,000 mcg PO DAILY duloxetine 1 cap PO DAILY fluticasone propionate 50 mcg/actuation 2 sprays intranasal DAILY hydrochlorothiazide 12.5 mg PO DAILY levothyroxine 25 mcg PO QAM metoprolol succinate ER 50 mg PO DAILY 30 days mirtazapine 7.5 mg PO BEDTIME nicotine (polacrilex) mg PO omeprazole 20 mg PO DAILY HPI HPI Comments History of Present Illness Details 50 YO F who is seen in F/U for multinodular thyroid and subclinical hypothyroidism. The patient S saw Dr. Stearns on 10/14/2021 She was initially referred for subclinical hypothyroidism. She remains on Levothyroxine 25 mcg PO daily and is taking this correctly. She has not had labs in approximately 1 year. She was also found to have a multinodular thyroid. She did have FNA biopsy of the L inferior 2.0 cm nodule 09/13/18 with benign [place] Category II cytology. She underwent FNA biopsy again 09/09/2021 of her [facility] 1.8 cm thyroid nodule, with benign cytology. Complains of fatigue, but otherwise denies any symptoms of hyper or hypothyroidism. No mention of compressive symptoms. Menses are regular. She is S/P tubal ligation. US Thyroid: 04/14/2021 Right Thyroid Lobe: 3.7 x 1.5 x 2.3 cm, volume 6.7 mL. Previously 3.4 x 1.8 x 1.8 cm, volume 5.8 mL. Parenchyma: The gland echotexture is heterogeneous. Thyroid vascularity is increased. Left Thyroid Lobe: 4.1 x 1.5 x 1.7 cm, volume 5.2 mL. Previously 4.1 x 1.9 x 1.4 cm, volume 5.5 mL. Parenchyma: The gland echotexture is heterogeneous. Thyroid vascularity is increased. Isthmus: 0.22 cm in maximum AP dimension. Previously 0.29 cm. Estimated total number of nodules greater than or equal to 1 cm: 2. Harp Repairer nodules are described as follows: 1.? Location: Right mid. ?? ? Size: 0.81 x 0.51 x 0.84 cm, volume 0.18 mL. ?? ? Previously: 0.84 x 0.89 x 0.83 cm, volume 0.32 mL. ?? ? Nodule characteristics: ?? ? Composition: Solid (2). ?? ? Echogenicity: Hyperechoic (1). ?? ? Shape: Not taller than wide (0). ?? ? Margins: Smooth (0). ?? ? Echogenic Foci: None (0).? ACR TI-RADS total points: 3 Previous: 3 ?? ? ACR TI-RADS category: 3 Previous: 3 ? Significant change in size (>/= 20% in 2 dimensions and minimal increase of 2 mm or 50% or greater increase in volume): No ?? ? Change in features: No ?? ? Change in ACR TI-RADS risk category: No 2.? Location: Right mid. ?? ? Size: 1.8 x 0.78 x 1.6 cm, volume 1.2 mL. ?? ? Previously: Not seen on the previous study. This may have been present and not measured due to the heterogeneous nature of the thyroid gland. ?? ? Nodule characteristics: ?? ? Composition: Solid (2). ?? ? Echogenicity: Hyperechoic (1). ?? ? Shape: Not taller than wide (0). ?? ? Margins: Smooth (0). ?? ? Echogenic Foci: None (0).? ACR TI-RADS total points: 3 ?? ? ACR TI-RADS category: 3 3.? Location: Left mid. ?? ? Size: 0.55 x 0.49 x 0.53 cm, volume 0.07 mL. ?? ? Previously: 0.63 x 0.53 x 0.62 cm, volume 0.11 mL. ?? ? Nodule characteristics: ?? ? Composition: Solid (2). ?? ? Echogenicity: Hyperechoic (1). ?? ? Shape: Not taller than wide (0). ?? ? Margins: Smooth (0). ?? ? Echogenic Foci: None (0).? ACR TI-RADS total points: 3 Previous: 3 ?? ? ACR TI-RADS category: 3 Previous: 3 ? Significant change in size (>/= 20% in 2 dimensions and minimal increase of 2 mm or 50% or greater increase in volume): No ?? ? Change in features: No ?? ? Change in ACR TI-RADS risk category: No 4.? Location: Left mid. ?? ? Size: 0.76 x 0.66 x 0.70 cm, volume 0.2 mL. ?? ? Previously: Not seen on the previous study. ?? ? Nodule characteristics: ?? ? Composition: Cannot be determined (2). ?? ? Echogenicity: Hypoechoic (2). ?? ? Shape: Not taller than wide (0). ?? ? Margins: Smooth (0). ?? ? Echogenic Foci: Macrocalcifications (1). ? ACR TI-RADS total points: 5 ?? ? ACR TI-RADS category: 4 5.? Location: Left inferior. ?? ? Size: 1.8 x 0.99 x 1.7 cm, volume 1.6 mL. ?? ? Previously: 1.4 x 1.1 x 0.84 cm, volume 0.68 mL. ?? ? Nodule characteristics: ?? ? Composition: Cannot be determined (2). ?? ? Echogenicity: Cannot be determined (1). ?? ? Shape: Not taller than wide (0). ?? ? Margins: Irregular (2). ?? ? Echogenic Foci: Macrocalcifications (1). ? ACR TI-RADS total points: 6 Previous: 6 ?? ? ACR TI-RADS category: 4 Previous: 4 ? Significant change in size (>/= 20% in 2 dimensions and minimal increase of 2 mm or 50% or greater increase in volume): Yes ?? ? Change in features: No ?? ? Change in ACR TI-RADS risk category: No Labs: Laboratory Tests 09/09/21 08:47 TSH 2.22 Free T4 0.87 PFS Medical History Anxiety Carpal tunnel syndrome Depression Hypothyroidism Leucocytosis Multinodular thyroid Thrombocytosis Vitamin D deficiency Surgical History History of carpal tunnel surgery History of left inguinal hernia repair History of lumpectomy of right breast History of right breast biopsy (11/2017) Hx of shoulder surgery (09/2014) Hx of tubal ligation Pseudoangiomatous stromal hyperplasia of breast Family History Father HTN (hypertension) Mother HTN (hypertension) Social History Household Members: Children Housing: Apartment Are you a primary manager medicare marketing to a significant other at home: Yes Do you presently have visiting nurse or other home services: No Alcohol intake: never Patient Tobacco Use Status: Current everyday Tobacco user Tobacco use type: Cigarette Years Smoked: 20 Second Hand Smoke Exposure: No service: No Current occupational status: employed 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 There are no thyroid nodules palpated Assessment & Plan Assessment & Plan (1) Multinodular thyroid: Code(s): E04.2 - Nontoxic multinodular goiter Plan: This 52-year-old female with history of multinodular goiter status post FNA of left inferior thyroid nodule with benign cytology. Recent thyroid ultrasound shows stability in the size of the nodules. Plan is for continued observation. Patient can return to her primary care provider who can check another thyroid ultrasound in about a year's time. If there is any change in the size wrist characteristics of the nodules, the patient returned back to endocrine for (2) Hypothyroidism: Code(s): E03.9 - Hypothyroidism, unspecified Plan: Clinically and biochemically euthyroid on 25 mcg levothyroxine. Continue present management. Patient to follow-up with primary care provider and return to endocrinology as needed Medications: Refilled cholecalciferol (vitamin D3) 50 mcg PO DAILY 30 days 30 caps 11RF Coding Level of Care Code Est Pt Level 3 (32281) Diagnoses Multinodular thyroid E04.2 Hypothyroidism E03.9
[2023-03-22 12:58] VITALS: BP 116/74; PULSE 95; BMI 29.9
== END 2023-03-22 13:17 | disposition home or self-care (01) ==
PROVIDERS: PCP Internal Medicine; Visit Provider Internal Medicine Endocrinology, Diabetes & Metabolism
DX: E04.2 Nontoxic multinodular goiter (principal); E03.9 Hypothyroidism, unspecified
CPT/HCPCS: 99213

== ENCOUNTER → 2023-03-22 12:56 | Outpatient (BNVA) | payer OTHER, SELFPAY | PROVIDERS: PCP Internal Medicine; Visit Provider Internal Medicine Endocrinology, Diabetes & Metabolism | DX: E04.2 Nontoxic multinodular goiter (principal); E03.9 Hypothyroidism, unspecified; Z79.899 Other long term (current) drug therapy | CPT/HCPCS: 99212 ==

== ENCOUNTER → 2023-03-23 10:52 | Outpatient (REF) | payer OTHER, SELFPAY | LOC: HO.CARD 10:52 | PROVIDERS: PCP Student in an Organized Health Care Education/Training Program; Visit Provider Nurse Practitioner | DX: I77.810 Thoracic aortic ectasia (principal); R00.2 Palpitations | CPT/HCPCS: 93306; 93356 ==

== ENCOUNTER → 2023-03-23 10:56 | Outpatient (BNV) | payer OTHER, SELFPAY | PROVIDERS: PCP Student in an Organized Health Care Education/Training Program; Visit Provider Internal Medicine | DX: I36.1 Nonrheumatic tricuspid (valve) insufficiency (principal) | CPT/HCPCS: 93306 ==

== ENCOUNTER 2023-04-04 14:04 | Outpatient (AMB) | payer OTHER, SELFPAY ==
--- NOTE | 2023-04-04 14:09 | A.OFFVIS_ITS ---
Intake Vital Signs 04/04/23 14:10 Height 5 ft 1 in Weight 156 lb 8.451 oz BMI 29.6 BP 99/65 Blood Pressure Location Rt brachial Position Sitting Pulse 63 Intake Visit Reasons: Colonoscopy Screening Intake Note: Delia presents in the office as a colonoscopy screening. CC: She states that she is not having any concerns today. Rn Oncology Required: Yes Rn Oncology Name: [id number] Abdulkadir Allergies No Known Allergies [No Known Allergies*] Allergy (Verified 04/04/23 14:12) Medication List - Last Reconciled 04/04/23 by NATALIE GibsonP- amlodipine 10 mg PO DAILY aspirin (Adult Aspirin Regimen) 81 mg PO DAILY cholecalciferol (vitamin D3) 50 mcg PO DAILY 30 days duloxetine 1 cap PO DAILY hydrochlorothiazide 12.5 mg PO DAILY hydroxyzine pamoate 25 mg PO BID levothyroxine 25 mcg PO QAM metoprolol succinate ER 50 mg PO DAILY 30 days mirtazapine 7.5 mg PO BEDTIME nicotine (polacrilex) mg PO omeprazole 20 mg PO DAILY HPI Colonoscopy Screening HPI Details 52 year old? female with past medical hi story of sinus tachycardia, mild dilation of ascending aorta, carpal tunnel syndrome, thrombocytosis, palpitation, multinodular thyroid, hypothyroidism is here today for pre colonoscopy screening.? Patient was sent to us by her PCP.? This is her first colonoscopy screening.? Patient denies any gastrointestinal symptoms in the past or at present. However patient does reports to have postprandial acid reflux. Patient reports occasional dyspepsia, without dysphagia or odynophagia.? Denies any personal or family history of gastrointestinal disease, colon polyps, or cancer.? Denies history of difficulty with sedation or anesthesia in the past.? Negative for history of sleep apnea.? Denies any history of cardiac, renal, pulmonary, or hepatic disease.??However has seen sales correspondence clerk and was diagnosed with small ascending aorta aneurysm. Patient denies any cardiac or respiratory symptoms. Patient will have appointment with sales correspondence clerk in July. Okay to book procedure afterwards. No history of infectious? diseases like hepatitis A, B, C, HIV or tuberculosis.? Patient is on low-dose aspirin PFSH Medical History Leucocytosis Thrombocytosis Anxiety Depression Carpal tunnel syndrome Multinodular thyroid Vitamin D deficiency Hypothyroidism Surgical History History of carpal tunnel surgery History of lumpectomy of right breast Pseudoangiomatous stromal hyperplasia of breast History of right breast biopsy (11/2017) History of left inguinal hernia repair Hx of tubal ligation Hx of shoulder surgery (09/2014) Family History Father HTN (hypertension) Mother HTN (hypertension) Social History Household Members: Children Housing: Apartment Are you a primary youth career specialist to a significant other at home: Yes Do you presently have visiting nurse or other home services: No Alcohol intake: never Patient Tobacco Use Status: Current everyday Tobacco user Tobacco use type: Cigarette Years Smoked: 20 Second Hand Smoke Exposure: No service: No Current occupational status: employed 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 Occasional epigastric discomfort postprandially with dyspepsia, without dysphagia or odynophagia. Will send patient for upper endoscopy. Will start patient on pantoprazole. Patient will call our office if she will continue to have symptoms. Denies any issues with anesthesia in the past.? Denies any history of sleep apnea.? No history infectious diseases in the past or present.? Patient is on low-dose aspirin.? Patient had echo and there is no increase in the size of ascending aortic aneurysm. Patient has no chest pain, shortness of breath with or without exertion. No family or personal history of colon cancer or polyps.? Patient denies melena, hematochezia, unintentional weight loss or ribbon like stools.? Discussed at length the pre-procedure,? prep, diet & medications as well as what to expect prior, during and after the procedure.?? Stressed the importance of good bowel prep. ?Recommended the use of Vaseline or Calmoseptine OTC & baby wipes with bowel movements to promote comfort.? ?Patient verbalizes understanding and agrees to plan of care.? She was given the opportunity to ask questions and all questions answered.? We will see her after the procedure.? Medications: New pantoprazole take one tablet half an hour before breakfast 40 mg PO DAILY 90 tabs 2RF K21.9 - Gastro-esophageal reflux disease without esophagitis bisacodyl (Dulcolax (bisacodyl)) take 2 tabs at noon the day before your colonoscopy 10 mg (2 x 5 mg) PO ONCE 2 tabs 0RF 1 day Z12.11 - Encounter for screening for malignant neoplasm of colon polyethylene glycol 3350 (Miralax) As directed by gastroenterology department at [facility] 238 grams PO ONCE 238 grams 0RF Z12.11 - Encounter for screening for malignant neoplasm of colon Coding Level of Care Code New Pt Level 3 (84386) Diagnoses Gastroesophageal reflux disease, unspecified whether esophagitis present K21.9 Esophagitis presence: esophagitis presence not specified Screen for colon cancer Z12.11 Time Spent (min) 40 Comment 30 minutes spent with patient and additional 10 minutes spent reviewing her records
[2023-04-04 14:10] VITALS: BP 99/65; PULSE 63; BMI 29.6
== END 2023-04-04 14:58 | disposition home or self-care (01) ==
PROVIDERS: PCP Student in an Organized Health Care Education/Training Program; Visit Provider Nurse Practitioner Family
DX: K21.9 Gastro-esophageal reflux disease without esophagitis (principal); Z12.11 Encounter for screening for malignant neoplasm of colon
CPT/HCPCS: 99203

== ENCOUNTER → 2023-04-04 14:04 | Outpatient (BNVA) | payer OTHER, SELFPAY | PROVIDERS: PCP Student in an Organized Health Care Education/Training Program; Visit Provider Nurse Practitioner Family | DX: Z12.11 Encounter for screening for malignant neoplasm of colon (principal); K21.9 Gastro-esophageal reflux disease without esophagitis | CPT/HCPCS: 99202 ==

== ENCOUNTER 2023-05-15 15:15 | Outpatient (REF) | payer OTHER, SELFPAY ==
[2023-05-15 17:20] LABS: C Reactive Protein 0.11 mg/dL (< or = 0.50)
[2023-05-15 17:23] LABS: Rheumatoid Factor < 13.0 IU/mL (<15.0)
[2023-05-15 18:34] LABS: Erythrocyte Sedimentation Rate 5 MM/HR (0-20)
[2023-05-17 09:18] LABS: Cyclic Citrullinated Peptide <16 UNITS
== END 2023-05-15 15:16 | disposition home or self-care (01) ==
LOC: HO.HHCL 15:15
PROVIDERS: Visit Provider Student in an Organized Health Care Education/Training Program
DX: M25.59 Pain in other specified joint (principal)
CPT/HCPCS: 36415; 85652; 86140; 86200; 86431

== ENCOUNTER 2023-05-22 10:50 | Outpatient (REF) | payer OTHER, SELFPAY ==
[2023-05-22 12:11] LABS: Hematocrit 36.3 % (37.0-47.0); Hemoglobin 11.6 g/dl (12.0-16.0); Mean Corpuscular Hemoglobin 25.5 pg (27.0-33.0); Mean Corpuscular Volume 79.8 fL (80.0-98.0); Mean Platelet Volume 9.6 fL (9.4-12.3); Platelet Count 589 X10*3/uL (160-400); Red Blood Count 4.55 X10*6/uL (4.20-5.50); Red Cell Distribution Width 15.8 % (11.0-16.0); White Blood Count 10.2 X10*3/uL (4.8-10.8)
[2023-05-22 12:52] LABS: HCG Quantitative 5 mIU/mL; TSH reflex Free T4 0.97 uIU/mL (0.32-4.0)
[2023-05-23 10:59] LABS: CT PCR NOT DETECTED (Not Detect.); NG PCR NOT DETECTED (Not Detect.)
[2023-05-23 11:08] LABS: Follicle Stimulating Hormone 88.2 mIU/mL; Lutenizing Hormone 78.4 mIU/mL; Prolactin 3.6 ng/mL
== END 2023-05-22 10:51 | disposition home or self-care (01) ==
LOC: HO.LAB 10:50
PROVIDERS: PCP Student in an Organized Health Care Education/Training Program; Visit Provider Obstetrics & Gynecology
DX: N93.9 Abnormal uterine and vaginal bleeding, unspecified (principal); Z20.2 Contact with and (suspected) exposure to infections with a predominantly sexual mode of transmission; E03.9 Hypothyroidism, unspecified
CPT/HCPCS: 0353U; 83001; 83002; 84146; 84443; 84702; 85027; 99202

== ENCOUNTER 2023-05-22 10:50 | Outpatient (AMB) | payer OTHER, SELFPAY ==
--- NOTE | 2023-05-22 11:01 | A.OFFVIS_ITS ---
Intake Vital Signs 05/22/23 11:02 Height 5 ft 1 in Weight 155 lb BMI 29.3 BP 122/76 Intake Visit Reasons: AUB/PCP Referral/DO NOT RS Graphite Grinder Required: Yes Graphite Grinder Language: Golf Course Architect Name: Gypsy SHARMA Information Interpreted: non-clinical & clinical Cable Engineer: Cable Engineer Present (Gypsy SHARMA) Accompanied by: Self / Same As Patient Allergies No Known Allergies [No Known Allergies*] Allergy (Verified 05/22/23 11:03) Post menopausal: Yes HPI HPI Comments History of Present Illness Details Presenting referred from PCP regarding abnormal uterine bleeding.The following workup was done in the last few months: H&H= 12.2/37.7107/11 TSH was negative. Co testing was done in 03/11 was negative. Mammogram was BI-RADS 1 in 07/11. Pelvic ultrasound showed the following in 03/11: The uterus is of normal size and echogenicity measuring 9.6 x 5.1 x 7.7 cm. There are multiple fibroids which are slightly enlarged compared to the previous study measuring 3.8 cm in the left body (previous 3.6 cm), 2.2 cm in the posterior body (previous 1 .5 cm), and 2.2 cm in the right lower uterine segment (previous 2.3 cm). A regular homogeneous endometrium is identified measuring 0.9 cm in thickness. The right ovary measures 3.0 x 1.4 x 1.6 cm, volume 3.5 mL. The right ovary appears normal. The left ovary measures 1.7 x 1.0 x 1.5 cm, volume 1.3 mL. The left ovary appears normal. There is no pelvic free fluid. [facility] Medical History Leucocytosis Thrombocytosis Anxiety Depression Carpal tunnel syndrome Multinodular thyroid Vitamin D deficiency Hypothyroidism Surgical History History of carpal tunnel surgery History of lumpectomy of right breast Pseudoangiomatous stromal hyperplasia of breast History of right breast biopsy (11/2017) History of left inguinal hernia repair Hx of tubal ligation Hx of shoulder surgery (09/2014) Family History Father HTN (hypertension) Mother HTN (hypertension) Social History Household Members: Children Housing: Apartment Are you a primary critical care specialist to a significant other at home: Yes Do you presently have visiting nurse or other home services: No Alcohol intake: never Patient Tobacco Use Status: Current everyday Tobacco user Tobacco use type: Cigarette Cigarettes Per Day: 8 Years Smoked: 20 Second Hand Smoke Exposure: No service: No Current occupational status: employed 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 Review of Systems Const All systems reviewed & are unremarkable except as noted in HPI and below Card Reports as per HPI Resp Reports as per HPI GI Reports as per HPI and Reports no additional complaints Reports as per HPI Physical Exam Vital Signs: Last Vital Signs BP 122/76 05/22/23 11:02 BMI result Body Mass Index 29.3 Const General: cooperative, healthy appearing and comfortable Chest Chest palpation & inspection: normal inspection of the chest and normal palpation of entire chest wall Breast/axilla inspection: normal inspection of the breasts and normal inspection of the axillae Breast/axilla palpation: normal palpation of the breasts, normal palpation of the axillae and no axillary lymphadenopathy Resp Effort & Inspection: normal respiratory effort Auscultation: clear to auscultation bilaterally Percussion: percussion normal Cardio Palpation: normal PMI Rate: regular rate Rhythm: regular rhythm Heart sounds: no murmurs and no rubs Peripheral pulses: Peripheral pulses 2+ throughout GI Inspection: Yes normal to inspection Palpation (GI): Soft to palpation, nontender, no guarding, not rigid and No hepatosplenomegaly present Percussion: Yes normal to percussion Auscultation: normal bowel sounds Rectal Exam - Female: deferred General: Yes bladder normal to palpation External Female Exam: No lesion Speculum Exam - Vagina: normal appearance of the vagina, normal palpation, normal vaginal discharge and not erythematous Speculum Exam - Cervix: normal appearance of the cervix and normal palpation Bimanual exam- vagina & uterus: normal bimanual exam, normal palpation, uterine size normal, bladder normal to palpation, consistency normal and normal palpation Bimanual Exam- Adnexa, other: normal adnexae, no masses and no tenderness Assessment & Plan Assessment & Plan (1) Abnormal uterine bleeding (AUB): Comment: Myomas Code(s): N93.9 - Abnormal uterine and vaginal bleeding, unspecified Plan: Co testing recently done, GC and chlamydia taken CBC, TSH, prolactin, FSH/LH, HCG ordered and pelvic ultrasound done in 12/09. Mammogram ordered . Discussed with the patient the different causes of abnormal bleeding including thyroid disorders, uterine and ovarian pathology, endometrial hyperplasia, carcinoma and other potential causes. Discussed with the patient the work up including CBC (to r/o anemia), TSH, pelvic Ultrasound, endometrial biopsy to r/o endometrial pathology. All questions answered and the patient verbalized understanding. Instructed the patient to schedule an appointment for an endometrial biopsy in 2 weeks. Orders: Orders TSH reflex Free T4 Today N93.9 - Abnormal uterine and vaginal bleeding, unspecified Follicle Stimulating Hormone Today N93.9 - Abnormal uterine and vaginal bleeding, unspecified Complete Blood Count no Diff Today N93.9 - Abnormal uterine and vaginal bleeding, unspecified Prolactin Today N93.9 - Abnormal uterine and vaginal bleeding, unspecified HCG Quantitative Today N93.9 - Abnormal uterine and vaginal bleeding, un specified Lutenizing Hormone Today N93.9 - Abnormal uterine and vaginal bleeding, unspecified MM screening mammo BI Today Z12.31 - Encounter for screening mammogram for malignant neoplasm of breast Coding Level of Care Code New Pt Level 3 (04424) Diagnoses Abnormal uterine bleeding (AUB) N93.9
[2023-05-22 11:02] VITALS: BP 122/76; BMI 29.3
== END 2023-05-22 12:25 | disposition home or self-care (01) ==
LOC: HO.HWS 10:50
PROVIDERS: PCP Student in an Organized Health Care Education/Training Program; Visit Provider Obstetrics & Gynecology
DX: N93.9 Abnormal uterine and vaginal bleeding, unspecified (principal)
CPT/HCPCS: 99203

== ENCOUNTER 2023-07-05 09:41 | Outpatient (REF) | payer OTHER, SELFPAY ==
--- NOTE | ~2023-07-05 | MM_ITS ---
EXAMINATION: MM SCREENING DIGITAL BREAST TOMOSYNTHESIS, BILATERAL CLINICAL INFORMATION: Screening. Asymptomatic. COMPARISON: Mammography: This study is compared with prior exams dating back to 2019. TECHNIQUE: Digital breast tomosynthesis is performed in both the craniocaudal and mediolateral oblique views along with computer-aided detection (CAD). Synthesized 2D images are generated from the tomosynthesis. FINDINGS: The breasts are extremely dense, which lowers the sensitivity of mammography (ACR BI-RADS breast composition Category d). There are no significant masses, abnormal calcifications, or other abnormalities. MM/MM tomosynthesis screening BI IMPRESSION: No mammographic evidence of malignancy. ASSESSMENT: BI-RADS BI-RADS 1 - Negative RECOMMENDATION: Routine annual mammography screening. 1 year F/U This examination should not preclude the clinical evaluation of a suspicious palpable abnormality. This patient's information was entered into a reminder system with a target due date for their next mammogram.
== END 2023-07-05 09:42 | disposition home or self-care (01) ==
LOC: HO.MAMMO 09:41
PROVIDERS: Absent Provider Obstetrics & Gynecology; PCP Student in an Organized Health Care Education/Training Program; Visit Provider Internal Medicine
DX: Z12.31 Encounter for screening mammogram for malignant neoplasm of breast (principal)
CPT/HCPCS: 77063; 77067

== ENCOUNTER → 2023-07-05 09:45 | Outpatient (BNV) | payer OTHER, SELFPAY | PROVIDERS: Absent Provider Obstetrics & Gynecology; PCP Student in an Organized Health Care Education/Training Program; Visit Provider Radiology Diagnostic Radiology | DX: Z12.31 Encounter for screening mammogram for malignant neoplasm of breast (principal) | CPT/HCPCS: 77063; 77067 ==

== ENCOUNTER 2023-07-12 11:32 | Outpatient (REF) | payer OTHER, SELFPAY | END 2023-07-12 11:33 | disposition home or self-care (01) | LOC: HO.LNP 11:32 | PROVIDERS: PCP Student in an Organized Health Care Education/Training Program; Visit Provider Obstetrics & Gynecology | DX: N93.9 Abnormal uterine and vaginal bleeding, unspecified (principal) | CPT/HCPCS: 58100; 88305 ==

== ENCOUNTER 2023-07-12 11:32 | Outpatient (AMB) | payer OTHER, SELFPAY ==
--- NOTE | 2023-07-12 11:37 | A.OFFVIS_ITS ---
Intake Vital Signs 07/12/23 11:40 Height 5 ft 1 in Weight 154 lb 5.177 oz BMI 29.2 BP 118/74 Intake Visit Reasons: EMB/lab Results Ux Developer Designer Required: Yes Ux Developer Designer Language: Finisher Brush Name: Gypsy SHARMA Information Interpreted: non-clinical & clinical Medical Scientist: Medical Scientist Present (Gypsy SHARMA) Accompanied by: Self / Same As Patient Allergies No Known Allergies [No Known Allergies*] Allergy (Verified 07/12/23 11:41) Post menopausal: Yes HPI HPI Comments History of Present Illness Details Presenting for EMB PFSH Medical History Leucocytosis Thrombocytosis Anxiety Depression Carpal tunnel syndrome Multinodular thyroid Vitamin D deficiency Hypothyroidism Surgical History History of carpal tunnel surgery History of lumpectomy of right breast Pseudoangiomatous stromal hyperplasia of breast History of right breast biopsy (11/2017) History of left inguinal hernia repair Hx of tubal ligation Hx of shoulder surgery (09/2014) Family History Father HTN (hypertension) Mother HTN (hypertension) Social History Household Members: Children Housing: Apartment Are you a primary lawn care technician to a significant other at home: Yes Do you presently have visiting nurse or other home services: No Alcohol intake: never Patient Tobacco Use Status: Current everyday Tobacco user Tobacco use type: Cigarette Cigarettes Per Day: 8 Years Smoked: 20 Second Hand Smoke Exposure: No service: No Current occupational status: employed 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 hysteroscopy D&C) & the risks were discussed with the patient including but not limited: pain, uterine perforation, bleeding, infection, possible injury to bladder, bowel, ureter, possible need for blood transfusion with all its possible risks. The patient verbalized understanding all questions answered and signed consent. The patient was placed into the dorsal lithotomy position; a speculum was inserted in the vagina. Using aseptic technique for the procedure, the cervix was cleansed with Betadine. The anterior lip of the cervix was grasped with a single tooth tenaculum. The uterus was sounded to 7 cm with a 4 mm Pipelle was used. Tissues samples were obtained and placed in formalin, in a patient labeled container and sent to the pathology department. At the end of the procedure, there was minimal bleeding noted The patient tolerated the procedure well and was discharged in good condition with the following instructions: Nothing in the vagina until the bleeding stops. No sex until the bleeding stops, to call if any of the following occurs: fever (>100.4), flu-like symptoms, abdominal pain, heavy bleeding, four smelling vaginal discharge. The patient was instructed to schedule a Follow up appointment in 2 weeks to discuss pathology results of the biopsy and treatment options. This note was generated with a voice recognition program. Some errors may have been overlooked during the review of this note. Sometimes these errors may affect the content or meaning of a given sentence. [id number] Biopsy Assessment & Plan Assessment & Plan (1) Abnormal uterine bleeding (AUB): Comment: Myomas Code(s): N93.9 - Abnormal uterine and vaginal bleeding, unspecified Plan: EMB done, see procedure note Orders: Orders AMB Endometrial Biopsy Today N93.9 - Abnormal uterine and vaginal bleeding, unspecified Coding Level of Care Code Procedure Only Diagnoses Abnormal uterine bleeding (AUB) N93.9 CPT Codes Endometrial Biopsy - CPT: 57861-[id number] Biopsy ([id number])
[2023-07-12 11:40] VITALS: BP 118/74; BMI 29.2
== END 2023-07-12 12:01 | disposition home or self-care (01) ==
LOC: HO.HWS 11:32
PROVIDERS: PCP Student in an Organized Health Care Education/Training Program; Visit Provider Obstetrics & Gynecology
DX: N93.9 Abnormal uterine and vaginal bleeding, unspecified (principal)
CPT/HCPCS: 58100

== ENCOUNTER 2023-07-19 13:00 | Outpatient (RCR) | payer OTHER, SELFPAY | END 2023-08-28 13:39 | disposition home or self-care (01) | LOC: HO.PT 13:00 | PROVIDERS: PCP Student in an Organized Health Care Education/Training Program; Visit Provider Student in an Organized Health Care Education/Training Program | DX: M54.9 Dorsalgia, unspecified (principal) | CPT/HCPCS: 97110; 97140; 97161 ==

== ENCOUNTER 2023-07-24 13:03 | Outpatient (AMB) | payer OTHER, SELFPAY ==
[2023-07-24 13:06] VITALS: BP 110/60; PULSE 60; BMI 30.1
--- NOTE | 2023-07-24 13:06 | A.OFFVIS_ITS ---
Intake Vital Signs 07/24/23 13:06 Height 5 ft 1 in Weight 159 lb 2.78 oz BMI 30.1 BP 110/60 Blood Pressure Location Lt brachial Position Sitting Pulse 60 Intake Visit Reasons: 6 MON FUP AFTER ECHO Intake Note: pt its here for a 6 mnth f/up after echo pt states that she is feeling fine. Shuttle Buggy Operator Required: Yes Shuttle Buggy Operator Name: meena/cindy Accompanied by: Self / Same As Patient Allergies No Known Allergies [No Known Allergies*] Allergy (Verified 07/12/23 11:41) Medication List - Last Reconciled 07/24/23 by Zan Lambert MD amlodipine 10 mg PO DAILY aspirin (Adult Aspirin Regimen) 81 mg PO DAILY bisacodyl (Dulcolax (bisacodyl)) 10 mg (2 x 5 mg) PO ONCE 1 day cholecalciferol (vitamin D3) 50 mcg PO DAILY 30 days duloxetine 1 cap PO DAILY hydrochlorothiazide 12.5 mg PO DAILY hydroxyzine pamoate 25 mg PO BID levothyroxine 25 mcg PO QAM metoprolol succinate ER 50 mg PO DAILY 30 days mirtazapine 7.5 mg PO BEDTIME polyethylene glycol 3350 (Miralax) 238 grams PO ONCE HPI HPI Comments History of Present Illness Details 52-year-old female who is here for foll ow-up. She was seen for palpitations and dizziness. She was sent for Holter monitoring which showed rare premature atrial complexes and PVCs. No significant sustained arrhythmia was noted on the 3 day Holter monitor.. She had an echocardiogram which showed normal biventricular function with mild aortic valve stenosis and mildly dilated ascending aorta. She was drinking 3-4 glasses was soda daily and she was advised to cut back.. Does not drink any other caffeinated drinks. She previously was describing a lightheaded feeling when she changes her posture. She was advised to keep herself well hydrated and maybe use some Gatorade. She returns for follow-up and is complaining that she continues get palpitations. These continue to be infrequent and can happen once every 1-2 weeks. She also gets slight dizziness when this happens. She has no chest discomfort. She is denying shortness of breath. She physically not active and does not exercise regularly. She is asking why she is on 2 antihypertensive medications. It appears she was already on antihypertensive therapy before she came to see us. She is saying she was started on blood pressure medications when she went to the emergency department. Her blood pressure control mostly has been good. Was previously advised to discuss with her psychiatrist about stopping hydroxy seen because that can cause palpitations tachycardia. 07/24/23: She is here for follow-up. She has been doing well. She gets once a month palpitations lasting for few minutes. Previously had cardiac event monitor which did not show any arrhythmia. Echocardiography has shown ascending aorta of 3.5 cm. Blood pressure is well controlled. She is a smoker. She has not had recent cholesterol testing. [facility] Medical History Leucocytosis Thrombocytosis Anxiety Depression Carpal tunnel syndrome Multinodular thyroid Vitamin D deficiency Hypothyroidism Surgical History History of carpal tunnel surgery History of lumpectomy of right breast Pseudoangiomatous stromal hyperplasia of breast History of right breast biopsy (11/2017) History of left inguinal hernia repair Hx of tubal ligation Hx of shoulder surgery (09/2014) Family History Father HTN (hypertension) Mother HTN (hypertension) Social History Household Members: Children Housing: Apartment Are you a primary chiropractic care to a significant other at home: Yes Do you presently have visiting nurse or other home services: No Alcohol intake: never Patient Tobacco Use Status: Current everyday Tobacco user Tobacco use type: Cigarette Cigarettes Per Day: 8 Years Smoked: 20 Second Hand Smoke Exposure: No service: No Current occupational status: employed 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 NECK: no carotid bruit, no jugular venous distention. SKIN: no suspicious lesions, warm and dry. HEART: no murmurs, regular rate and rhythm. LUNGS: clear to auscultation bilaterally. ABDOMEN: soft, nontender. EXTREMITIES: no edema. PERIPHERAL PULSES: equal. NEUROLOGIC: No gross deficits, AAO X 3 Assessment & Plan Assessment & Plan (1) Mild dilation of ascending aorta: Code(s): I77.810 - Thoracic aortic ectasia Plan Pleasant 52 year female who is here for follow-up. She has background history of palpitations, essential hypertension and mild dilation of ascending aorta. She is on amlodipine, hydrochlorothiazide and metoprolol succinate. Blood pressure is well controlled. She is complaining of rare palpitations at this point. Overall she is stable. She has ascending aorta which is mildly dilated at 3.5 cm. She has a smoker. I have advised her to stop smoking. Blood pressure is well controlled. We will check a fasting lipid panel on her and optimize lipids accordingly. Thank you for allowing me to participate in the care of your patient. Please feel free to contact me if you have any questions. Orders: Orders Lipid Panel Today I77.810 - Thoracic aortic ectasia Coding Level of Care Code Est Pt Level 4 (75169) Diagnoses Mild dilation of ascending aorta I77.810
== END 2023-07-24 13:43 | disposition home or self-care (01) ==
PROVIDERS: PCP Student in an Organized Health Care Education/Training Program; Visit Provider Internal Medicine Cardiovascular Disease
DX: I77.810 Thoracic aortic ectasia (principal)
CPT/HCPCS: 93010; 99214

== ENCOUNTER → 2023-07-24 13:03 | Outpatient (BNVA) | payer OTHER, SELFPAY | PROVIDERS: PCP Student in an Organized Health Care Education/Training Program; Visit Provider Internal Medicine Cardiovascular Disease | DX: I77.810 Thoracic aortic ectasia (principal); Z79.899 Other long term (current) drug therapy | CPT/HCPCS: 93005; 99212 ==

== ENCOUNTER 2023-07-31 07:58 | Outpatient (REF) | payer OTHER, SELFPAY ==
[2023-07-31 09:44] LABS: Cholesterol 162 mg/dL (<200); HDL Cholesterol 47 mg/dL (>40); LDL Cholesterol Calculated 99 mg/dL (<100); Triglycerides 80 mg/dL (<150)
== END 2023-07-31 07:59 | disposition home or self-care (01) ==
LOC: HO.LAB 07:58
PROVIDERS: Visit Provider Internal Medicine Cardiovascular Disease
DX: I77.810 Thoracic aortic ectasia (principal)
CPT/HCPCS: 36415; 80061

== ENCOUNTER 2023-08-09 13:06 | Outpatient (REF) | payer OTHER, SELFPAY ==
[2023-08-09 14:29] LABS: HCG Quantitative 6 mIU/mL
== END 2023-08-09 13:07 | disposition home or self-care (01) ==
LOC: HO.LAB 13:06
PROVIDERS: PCP Student in an Organized Health Care Education/Training Program; Visit Provider Obstetrics & Gynecology
DX: N93.9 Abnormal uterine and vaginal bleeding, unspecified (principal); D25.9 Leiomyoma of uterus, unspecified
CPT/HCPCS: 36415; 84702; 99212

== ENCOUNTER 2023-08-09 13:06 | Outpatient (AMB) | payer OTHER, SELFPAY ==
--- NOTE | 2023-08-09 13:30 | MHC.OFFVIS ---
Intake Vital Signs 08/09/23 13:33 Height 5 ft 1 in Weight 158 lb 11.725 oz BMI 30.0 BP 110/70 Intake Visit Reasons: EMB results Photonics Technician Required: Yes Photonics Technician Language: Tennis Centre Manager Name: Gypsy SHARMA Information Interpreted: non-clinical & clinical Accompanied by: Grand Child Allergies No Known Allergies [No Known Allergies*] Allergy (Verified 08/09/23 13:34) Post menopausal: Yes HPI HPI Comments History of Present Illness Details The patient is presenting for follow-up to discuss the results of her abnormal uterine bleeding workup and options of treatment. The following workup was done.: H&H= 11.6/36.3 TSH, prolactin, GC and chlamydia were negative. HCG was 5 FSH/LH= both elevated at 88.2/78.4 Endometrial biopsy pathology showed inactive endometrium with no evidence of hyperplasia and/or malignancy. Co testing was done was negative. Mammogram was BI-RADS 1 Pelvic ultrasound showed the following: The uterus is of normal size and echogenicity measuring 9.6 x 5.1 x 7.7 cm. There are multiple fibroids which are slightly enlarged compared to the previous study measuring 3.8 cm in the left body (previous 3.6 cm), 2.2 cm in the posterior body (previous 1.5 cm), and 2.2 cm in the right lower uterine segment (previous 2.3 cm). A regular homogeneous endometrium is identified measuring 0.9 cm in thickness. The right ovary measures 3.0 x 1.4 x 1.6 cm, volume 3.5 mL. The right ovary appears normal. The left ovary measures 1.7 x 1.0 x 1.5 cm, volume 1.3 mL. The left ovary appears normal. There is no pelvic free fluid. [facility] Medical History Leucocytosis Thrombocytosis Anxiety Depression Carpal tunnel syndrome Multinodular thyroid Vitamin D deficiency Hypothyroidism Surgical History History of carpal tunnel surgery History of lumpectomy of right breast Pseudoangiomatous stromal hyperplasia of breast History of right breast biopsy (11/2017) History of left inguinal hernia repair Hx of tubal ligation Hx of shoulder surgery (09/2014) Family History Father HTN (hypertension) Mother HTN (hypertension) Social History Household Members: Children Housing: Apartment Are you a primary laboratory animal caretaker to a significant other at home: Yes Do you presently have visiting nurse or other home services: No Alcohol intake: never Patient Tobacco Use Status: Current everyday Tobacco user Tobacco use type: Cigarette Cigarettes Per Day: 8 Years Smoked: 20 Second Hand Smoke Exposure: No service: No Current occupational status: employed 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 Will repeat hCG quantitative. Discussed with the patient the results of the work up done and options of treatment including Lysteda, BCP's, Mirena IUD, endometrial ablation and hysterectomy. All pros, cons, risks and benefits if each option was discussed with the patient and the patient decided to think about it and get back to us. All questions answered the patient verbalized understanding. (2) Uterine myoma: Code(s): D25.9 - Leiomyoma of uterus, unspecified Plan: Discussed with the patient the findings on pelvic ultrasound & the risk of myosarcoma; discussed with the patient the options of treatment including expectant management versus hysterectomy; the pros and cons, risks benefits of each approach were discussed with the patient including the fact that in cases of myosarcoma, surgical treatment can lead to early diagnosis and positively affects the prognosis; after further discussion, the patient decided to proceed with expectant management. Will repeat pelvic ultrasound periodically. Instructions given to patient to call in case any of the following occurs: pressure symptoms, abnormal uterine bleeding, pelvic pain; and to schedule a future office follow-up appointment for reassessment and to order a repeat ultrasound . All questions answered, the patient verbalized understanding and agreed with the plan . Orders: Orders HCG Quantitative Today N93.9 - Abnormal uterine and vaginal bleeding, unspecified Coding Level of Care Code Est Pt Level 3 (45332) Diagnoses Abnormal uterine bleeding (AUB) N93.9 Uterine myoma D25.9
[2023-08-09 13:33] VITALS: BP 110/70
== END 2023-08-09 13:55 | disposition home or self-care (01) ==
LOC: HO.HWS 13:06
PROVIDERS: PCP Student in an Organized Health Care Education/Training Program; Visit Provider Obstetrics & Gynecology
DX: N93.9 Abnormal uterine and vaginal bleeding, unspecified (principal); D25.9 Leiomyoma of uterus, unspecified
CPT/HCPCS: 99213

== ENCOUNTER 2023-08-17 12:08 | Outpatient (REF) | payer OTHER, SELFPAY ==
--- NOTE | ~2023-08-17 | US_ITS ---
EXAMINATION: US THYROID CLINICAL INFORMATION: Thyroid nodules, annual surveillance COMPARISON: 09/15/2022 TECHNIQUE: Linear transducer grayscale and color Doppler examination with attention to the region of the thyroid. FINDINGS: SIZE: Measurements of the thyroid lobes and nodules are given in sagittal, anteroposterior and transverse dimensions respectively. Right Thyroid Lobe: 3.7 x 1.8 x 2.0 cm, volume 7.0 mL. Parenchyma: The gland echotexture is heterogeneous. Thyroid vascularity is increased. Thyroid gland on the right diminished since previous study Left Thyroid Lobe: 4.0 x 1.9 x 1.4 cm, volume 5.6 mL. Parenchyma: The gland echotexture is heterogeneous. Thyroid vascularity is increased. Thyroid gland on the left diminished since the previous study Isthmus: 0.3 cm in maximum AP dimension. This was discussed stable since previous study Estimated total number of nodules greater than or equal to 1 cm: 3. 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 Location: Right medially. Size: 1.0 x 0.7 x 0.9 cm, volume 0.3 mL. Nodule characteristics: Composition: Solid/almost completely solid (2). Echogenicity: Hyperechoic (1). Shape: 0 Margins: Sharp Echogenic Foci: None (0). ACR TI-RADS total points: 3 ACR TI-RADS category: 3 When compared to the previous examinations a nodule is growing on the previous examination due to volume was 0.2 2. Location: Medial/inferior. Size: 1.1 x 0.9 x 0.9 cm, volume 0.4 mL. Nodule characteristics: Composition: Solid (2). Echogenicity: Hyperechoic (1). Shape: 0 Margins: Smooth (0). Echogenic Foci: None (0). ACR TI-RADS total points: 3 ACR TI-RADS category: 3 The nodule is growing since previous study, on the prior examination a volume of 0.14 mL 3. Location: Lower pole lateral. Size: 0.6 x 0.5 x 0.6 cm, volume 0.09 mL. Nodule characteristics: Composition: Solid/almost completely solid (2). Echogenicity: Hyperechoic (1). Shape: 0 Margins: 0 Echogenic Foci: 0 ACR TI-RADS total points: 3 ACR TI-RADS category: 3 The nodule is growing, the volume on the previous study was 0.03 4. Location: Lateral lower pole. Size: 1.5 x 1.2 x 1.2 cm, volume 0.7 mL. Nodule characteristics: Composition: Solid/almost completely solid (2). Echogenicity: Isoechoic (1). Shape: 0 Margins: 0 Echogenic Foci: Punctate echogenic foci (3). ACR TI-RADS total points: 6 ACR TI-RADS category: 6 Unchanged since previous examination There is Lymphadenopathy with homogeneous hypoechoic nodule seen in the left side of the neck in level 3 area measured 0.6 x 0.7 x 1.0 cm US/US thyroid IMPRESSION: Mildly growing nodules. The largest nodule on the left is stable. Neck lymphadenopathy ACR TI-RADS RECOMMENDATION REFERENCE: Ultrasound-guided fine-needle aspiration, followup ultrasound, no further follow up. * TR1 (0 point) and TR2 (2 points): No FNA or follow up. * TR3 (3 points): FNA if more than or equal to 2.5 cm in maximum dimension, followup ultrasound in 1, 3 and 5 years if 1.5 to 2.4 cm in maximum dimension. * TR4 (4-6 points): FNA if more than or equal to 1.5 cm in maximum dimension, followup ultrasound in 1, 2, 3 and 5 years if 1 to 1.4 cm in maximum dimension. * TR5 (more than or equal to 7 points): FNA if more than or equal to 1 cm in maximum dimension, followup ultrasound every year for 5 years if 0.5 to 0.9 cm in maximum dimension. * TR3, TR4 or TR5 nodules that are below the size threshold for followup receive no follow up.
== END 2023-08-17 12:09 | disposition home or self-care (01) ==
LOC: HO.US 12:08
PROVIDERS: PCP Student in an Organized Health Care Education/Training Program; Visit Provider Student in an Organized Health Care Education/Training Program
DX: G62.9 Polyneuropathy, unspecified (principal); E04.2 Nontoxic multinodular goiter
CPT/HCPCS: 76536

== ENCOUNTER 2023-08-18 08:03 | Outpatient (REF) | payer OTHER, SELFPAY ==
[2023-08-18 11:27] LABS: MANUAL DIFF FLAG NO
[2023-08-18 11:44] LABS: Basophils Percent Auto 0.4 % (0-2); Eosinophils Absolute Auto 0.2 X10*3/uL (0.0-0.4); Eosinophils Percent Auto 2.1 % (0-4); Hematocrit 38.5 % (37.0-47.0); Hemoglobin 12.3 g/dl (12.0-16.0); Imm Gran Abs Auto 0.03 X10*3/uL (0.00-0.03); Imm Gran Pct Auto 0.3 % (0.0-0.4); Lymphocytes Percent Auto 38.9 % (20-40); Mean Corpuscular HGB Conc 31.9 g/dl (31.0-35.0); Mean Corpuscular Hemoglobin 26.5 pg (27.0-33.0); Mean Corpuscular Volume 82.8 fL (80.0-98.0); Mean Platelet Volume 9.9 fL (9.4-12.3); Monocytes Absolute Auto 0.7 X10*3/uL (0.1-1.2); Monocytes Percent Auto 6.5 % (2-11); Neutrophils Absolute Auto 5.3 x10*3/uL (2.0-8.3); Neutrophils Percent Auto 51.8 % (45-73); Platelet Count 599 X10*3/uL (160-400); Red Blood Count 4.65 X10*6/uL (4.20-5.50); Red Cell Distribution Width 14.4 % (11.0-16.0); White Blood Count 10.3 X10*3/uL (4.8-10.8)
[2023-08-18 12:11] LABS: HIV AB/AG Nonreactive (Nonreactive); HIV Num 1 0.06 S/CO (0.00-0.99); ~Hepatitis C Antibody Nonreactive (Nonreactive)
[2023-08-18 12:13] LABS: Alanine Aminotransferase 11 U/L (0-31); Albumin Level 3.8 g/dL (3.5-5.0); Alkaline Phosphatase 76 U/L (39-117); Anion Gap 9 (12-20); Aspartate Amino Transferase 13 U/L (5-31); Bilirubin Total 0.1 mg/dL (0.0-1.0); Blood Urea Nitrogen 15 mg/dL (9-16); Calcium 9.2 mg/dL (8.4-10.2); Carbon Dioxide 26 mmol/L (22-29); Chloride 110 mmol/L (96-108); Estimated Glomerular Filt Rate > 60; Glucose Random 79 mg/dL (60-115); Potassium 3.6 mmol/L (3.3-5.1); Sodium 141 mmol/L (135-145); Total Protein 6.6 g/dL (6.5-8.0)
[2023-08-18 12:15] LABS: Free T4 (Free Thyroxine) 0.84 ng/dL (0.71-1.85); Thyroid Stimulating Hormone 2.87 uIU/mL (0.32-4.0)
[2023-08-18 12:23] LABS: Folate 6.7 ng/mL (> or = 4.0); Vitamin B12 436 pg/mL (200-900)
[2023-08-21 15:03] LABS: IgA 174 mg/dL (47-310); IgG 1256 mg/dL (600-1640); IgM 94 mg/dL (50-300)
[2023-08-21 20:19] LABS: Antibody to SS-A Antigen <1.0 NEG AI (<1.0 NEG); Antibody to SS-B Antigen <1.0 NEG AI (<1.0 NEG)
[2023-08-22 12:58] LABS: Prot Elec - Albumin 3.7 g/dL (3.8-4.8); Prot Elec - Alpha1 0.2 g/dL (0.2-0.3); Prot Elec - Alpha2 0.6 g/dL (0.5-0.9); Prot Elec - Beta 1 0.4 g/dL (0.4-0.6); Prot Elec - Beta 2 0.3 g/dL (0.2-0.5); Prot Elec - Gamma 1.1 g/dL (0.8-1.7); Prot Elec - Total Protein 6.4 g/dL (6.1-8.1)
== END 2023-08-18 08:04 | disposition home or self-care (01) ==
LOC: HO.HHCL 08:03
PROVIDERS: Visit Provider Student in an Organized Health Care Education/Training Program
DX: G62.9 Polyneuropathy, unspecified (principal)
CPT/HCPCS: 36415; 80053; 82607; 82746; 82784; 84165; 84439; 84443; 85025; 86235; 86334; 86803; 87389

== ENCOUNTER 2023-08-22 08:57 | Day surgery (SDC) | payer OTHER, SELFPAY ==
[2023-08-22 09:29] VITALS: BMI 30.2
[2023-08-22 09:31] VITALS: BP 121/72; PULSE 63; RESP 18; TEMP 36.7; O2SAT 98
[2023-08-22] MEDS: Lactated Ringers 1,000 ML 100 ML IVCONT (09:32)
--- NOTE | 2023-08-22 09:45 | P.CONAN_ITS ---
Documented by User: Stella Street NP 08/21/23 09:21 HPI - Anesthesia Eval Consult details Narrative: 52yo F for Upper Endoscopy and Colonoscopy Stable at 07/2023 [facility] [place] cardiology office visit. Rare palps. Holter [place] PMFSH Active Problems Active Problems: All Active Problems (Updated 08/09/23 @ 13:35 by Remigio Whyte MD) Uterine myoma (Acute) Mild dilation of ascending aorta (Acute) Abnormal uterine bleeding (AUB) (Acute) Sinus tachycardia (Acute) Mild dilation of ascending aorta (Acute) Carpal tunnel syndrome of left wrist (Acute) Carpal tunnel syndrome of right wrist (Acute) Cubital tunnel syndrome on left (Acute) Cubital tunnel syndrome on right (Acute) Thrombocytosis (Chronic) Palpitations (Acute) Dizziness (Acute) Pseudoangiomatous stromal hyperplasia of breast (Acute) Multinodular thyroid (Acute) Vitamin D deficiency (Acute) Hypothyroidism (Acute) Past Medical History Medical History Leucocytosis Thrombocytosis Anxiety Depression Carpal tunnel syndrome Multinodular thyroid Vitamin D deficiency Hypothyroidism Family History Family History Father HTN (hypertension) Mother HTN (hypertension) Family history of problems with anesthesia: No Surgical History Surgical History History of carpal tunnel surgery History of lumpectomy of right breast Pseudoangiomatous stromal hyperplasia of breast History of right breast biopsy (11/2017) History of left inguinal hernia repair Hx of tubal ligation Hx of shoulder surgery (09/2014) History of Problems with Anesthesia: No Social History Social History Household Members: Children Housing: Apartment Are you a primary care assistant to a significant other at home: Yes Do you presently have visiting nurse or other home services: No Alcohol intake: never Patient Tobacco Use Status: Current everyday Tobacco user Tobacco use type: Cigarette Cigarettes Per Day: 8 Years Smoked: 20 Smoked in Last 30 Days: Yes Patient Interested in Nicotine Replacement: No Second Hand Smoke Exposure: No Are you DNR?: No Advance Directives: No Advance Directives Information Provided: Yes Nutrition Risks: No Nutritional Risk service: No Current occupational status: employed 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 Meds Allergies Allergy/AdvReac Type Severity Reaction Status Date / Time No Known Allergies Allergy Verified 08/22/23 09:32 [No Known Allergies*] Home Medications Medication Instructions Recorded Confirmed Last Taken Type mirtazapine 7.5 mg tablet 7.5 mg PO BEDTIME 09/20/21 08/22/23 Unknown History duloxetine 60 mg capsule,delayed 1 cap PO DAILY 02/14/22 08/22/23 03/23/22 History release hydrochlorothiazide 12.5 mg tablet 12.5 mg PO DAILY 07/04/22 08/22/23 Unknown History amlodipine 10 mg tablet 10 mg PO DAILY 03/22/23 08/22/23 Unknown History aspirin 81 mg tablet,delayed 81 mg PO DAILY 04/04/23 08/22/23 Unknown History release (Adult Aspirin Regimen) hydroxyzine pamoate 25 mg capsule 25 mg PO BID 04/04/23 08/22/23 Unknown History Exam Pertinent Lab Results Pertinent Lab Results: Laboratory Tests 08/18/23 08:06 WBC 10.3 Hgb 12.3 Hct 38.5 Plt Count 599 H Sodium 141 Potassium 3.6 Chloride 110 H Carbon Dioxide 26 BUN 15 Creatinine 0.84 Narrative Narrative: EKG 07/2023 Details: Normal sinus rhythm, normal ECG. ECHO 03/2023 Conclusions: - The left ventricular systolic function is normal. The calculated ejection fraction is 65% by biplane method. - No obvious valvular pathology seen on this study. - Top normal ascending aortic size at 3.5 cm. Assessment and Plan Final Anesthetic Review Family History of Problems with Anesthesia: No History of Problems with Anesthesia: No Documented by User: Juana Stockton DO 08/22/23 09:48 [facility] Past Medical History Medical History Leucocytosis Thrombocytosis Anxiety Depression Carpal tunnel syndrome Multinodular thyroid Vitamin D deficiency Hypothyroidism Family History Family History Father HTN (hypertension) Mother HTN (hypertension) Family history of problems with anesthesia: No Surgical History Surgical History History of carpal tunnel surgery History of lumpectomy of right breast Pseudoangiomatous stromal hyperplasia of breast History of right breast biopsy (11/2017) History of left inguinal hernia repair Hx of tubal ligation Hx of shoulder surgery (09/2014) History of Problems with Anesthesia: No Social History Social History Household Members: Children Housing: Apartment Are you a primary care assistant to a significant other at home: Yes Do you presently have visiting nurse or other home services: No Alcohol intake: never Patient Tobacco Use Status: Current everyday Tobacco user Tobacco use type: Cigarette Cigarettes Per Day: 8 Years Smoked: 20 Smoked in Last 30 Days: Yes Patient Interested in Nicotine Replacement: No Second Hand Smoke Exposure: No Are you DNR?: No Advance Directives: No Advance Directives Information Provided: Yes Nutrition Risks: No Nutritional Risk service: No Current occupational status: employed 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 Meds Allergies Allergy/AdvReac Type Severity Reaction Status Date / Time No Known Allergies Allergy Verified 08/22/23 09:32 [No Known Allergies*] Home Medications Medication Instructions Recorded Confirmed Last Taken Type mirtazapine 7.5 mg tablet 7.5 mg PO BEDTIME 09/20/21 08/22/23 Unknown History duloxetine 60 mg capsule,delayed 1 cap PO DAILY 02/14/22 08/22/23 03/23/22 His tory release hydrochlorothiazide 12.5 mg tablet 12.5 mg PO DAILY 07/04/22 08/22/23 Unknown History amlodipine 10 mg tablet 10 mg PO DAILY 03/22/23 08/22/23 Unknown History aspirin 81 mg tablet,delayed 81 mg PO DAILY 04/04/23 08/22/23 Unknown History release (Adult Aspirin Regimen) hydroxyzine pamoate 25 mg capsule 25 mg PO BID 04/04/23 08/22/23 Unknown History Exam Exam Date and Time: August 22, 2023 0945 Height,Weight and Vital Signs: Height 5 ft 1 in Weight 72.575 kg Vital Signs Temperature 98.1 F 08/22/23 09:31 Pulse Rate 63 08/22/23 09:31 Respiratory Rate 18 08/22/23 09:31 Blood Pressure 121/72 08/22/23 09:31 Pulse Oximetry 98 08/22/23 09:31 Oxygen Delivery Method Room Air 08/22/23 09:31 Temperature 98.1 F 08/22/23 09:31 Pulse Rate 63 08/22/23 09:31 Respiratory Rate 18 08/22/23 09:31 Blood Pressure 121/72 08/22/23 09:31 Pulse Oximetry 98 08/22/23 09:31 Oxygen Delivery Method Room Air 08/22/23 09:31 Airway Mallampati Class: II TM Dist: >3cm Neck ROM: Full Loose/Missing/Broken Teeth: No Heart: S1S2 Lungs: CTAB Assessment and Plan Assessment Anesthesia Assessment: Anesthesia Plan Discussed and Chart Reviewed Final Anesthetic Review Family History of Problems with Anesthesia: No History of Problems with Anesthesia: No NPO: Yes ASA Class: II Final Preanesthetic Review: No Changes in Pt Med Stat, Meds/Allgs Chart Reviewed, Consent Obtained/Reviewed (subcontract administrator at bedside for consent) and Anes Risks/Benef Reviewed Patient Risk: Low Procedure Risk: Low Anesthetic Plan Anesthetic Plan: MAC: and Agree w/ Assess. and Plan Disposition: Standard PACU
--- NOTE | 2023-08-22 10:30 | MHC.SHP ---
Pre-Procedural Eval Section A - 24 Hr Update-Section A only Date of Service: 08/22/23 Section B - Complete if H&P > 30 days Chief Complaint: gerd,screening Relevant Family History (Specify if Yes): No Relevant Social History: Tobacco Use Present Medications: see Short Stay Collaborative assessment Medical History: Significant History ( Leucocytosis Thrombocytosis Anxiety Depression Carpal tunnel syndrome Multinodular thyroid Vitamin D deficiency Hypothyroidism) History of Previous Operations: Relevant previous surgery/procedure and date(s) ( History of carpal tunnel surgery History of lumpectomy of right breast Pseudoangiomatous stromal hyperplasia of breast History of right breast biopsy (11/2017) History of left inguinal hernia repair Hx of tubal ligation Hx of shoulder surgery (09/2014)) Allergies: Allergies Allergy/AdvReac Type Severity Reaction Status Date / Time No Known Allergies Allergy Verified 08/22/23 09:32 [No Known Allergies*] Review of Systems Sugical H&P ROS: Negative: Constitution, Cardiovascular, Respiratory, Neurological, Psychiatric, Hem-Onc, Allergic/Immunologic, Gastrointestinal, Genitourinary, Musculoskeletal, Integumentary, Endocrine and Eyes/Ears/Nose/Throat Exam Surgical H&P Exam: Normal: HEENT, Normal: Heart, Normal: Lungs, Normal: Extremities, Normal: Abdomen, Normal: Skin and Normal: Neurological Plan Diagnosis/Plan: Unchanged I have reviewed the history and physical and performed a pertinent physical examination on my patient. No changes have occurred unless specified. Time Spent With Patient Time: Total time managing care of this patient today ____ minutes.
--- NOTE | 2023-08-22 11:13 | W.PM.OPN ---
Operative Note Operative Note Date of Service: 08/22/23 Narrative: Operative Information Procedure Description: EGD, Colonoscopy Indication: GERD, screening Anesthesia: MAC FLEXIBLE TRANSORAL UPPER GASTROINTESTINAL ENDOSCOPY AND COLONOSCOPY PROCEDURE NOTE UPPER ENDOSCOPY Consent: Indications for the procedure and potential complications of bleeding, perforation, reaction to medications and missed diagnosis were discussed with the patient and informed consent was obtained. Instrument: Olympus GIF H 190 J mid size upper endoscope Monitoring: Vital signs and clinical assessment, continuous EKG monitoring, Pulse oximetry, Carbon Dioxide monitoring and blood pressure monitoring were done throughout the procedure. Procedure: The patient was placed in the left lateral decubitis position and pre-procedure medications were administered and a bite block was placed. The endoscope was inserted into the mouth and advanced under direct vision to the third part of duodenum. A careful inspection was made as the upper endoscope was withdrawn including a retroflexed examination of the proximal stomach; Findings and interventions are described below. Findings: Larynx:normal Esophagus: GE junction at 36 cm, diaphragm hiatus at 38 cm, mild erythema GEJ, bx taken as well as from distal esophagus -compatible with small hiatal hernia 2 cm Stomach: Patchy erythema Biopsies were obtained. Grade 2 flap valve on retroflexed examination of the cardia. Duodenum: Normal bulb and descending duodenum, Intervention: Biopsies as noted above, COLONOSCOPY Instrument: Olympus variable stiffness pediatric scope 190L Colonoscopy Monitoring: Vital signs and clinical assessment, continuous EKG monitoring, Pulse oximetry, Carbon Dioxide monitoring and blood pressure monitoring were done throughout the procedure. Colon withdrawal time was 12 minutes. Procedure: The patient was placed in the left lateral decubitis position and pre-procedure medications were administered. After a digital rectal examination of the ano-rectum, the video colonoscope was inserted into the rectum and advanced through the colon to the cecum/TI. The colonoscope was slowly withdrawn in a retrograde panoramic fashion and the colon mucosa was carefully examined including a retroflexed view of the rectum. Findings and interventions are described below. Procedure Difficulty:moderate Findings: Terminal Ileum-not intubated due to looping Cecum:normal Ascending Colon: normal Transverse Colon -normal Descending Colon:normal Sigmoid Colon: normal Rectum: Retroflexion with small internal hemorrhoids, grade I Anorectum - normal Colon preparation: [place] Bowel Preparation Scale Right colon; 2 Transverse colon: 2 Left colon; 2 (0 = Unprepared colon segment with mucosa not seen due to solid stool that cannot be cleared. 1 = Portion of mucosa of the colon segment seen, but other areas of the colon segment not well seen due to staining, residual stool and/or opaque liquid. 2 = Minor amount of residual staining, small fragments of stool and/or opaque liquid, but mucosa of colon segment seen well. 3 = Entire mucosa of colon segment seen well with no residual staining, small fragments of stool or opaque liquid) Impression and Post Procedure Diagnosis: Endoscopy Findings: gastritis small hiatal hernia Colonoscopy Findings: internal hemorrhoids Plan: Await Pathology results Repeat Colonoscopy in 10 years or earlier if clinically indicated High fiber diet leaflet avoid straining at stool, epsom salts and sitz bath, anusol supps or cream if h pylori pos then treat smoking cessation Above findings were reviewed with the patient and relevant handouts were provided if indicated.
[2023-08-22 11:20] VITALS: BP 101/65; PULSE 59; RESP 18; TEMP 36.2; O2SAT 100
[2023-08-22 11:35] VITALS: BP 116/70; PULSE 56; RESP 16; TEMP 36.2; O2SAT 99
== END 2023-08-22 14:13 | disposition home or self-care (01) ==
PROVIDERS: PCP Student in an Organized Health Care Education/Training Program; Visit Provider Internal Medicine Gastroenterology
PROC: (CPT 43239; principal; 2023-08-22 12:00)
DX: K29.70 Gastritis, unspecified, without bleeding (principal); K44.9 Diaphragmatic hernia without obstruction or gangrene; K21.9 Gastro-esophageal reflux disease without esophagitis; Z12.11 Encounter for screening for malignant neoplasm of colon; K64.0 First degree hemorrhoids; R00.0 Tachycardia, unspecified; D75.839 Thrombocytosis, unspecified; E03.9 Hypothyroidism, unspecified; E55.9 Vitamin D deficiency, unspecified; R10.13 Epigastric pain; F17.210 Nicotine dependence, cigarettes, uncomplicated
CPT/HCPCS: 43239; G0121; 88305; 88313; 88342; J2704

== ENCOUNTER → 2023-08-22 08:57 | Outpatient (BNV) | payer OTHER, SELFPAY | PROVIDERS: PCP Student in an Organized Health Care Education/Training Program; Visit Provider Internal Medicine Gastroenterology | DX: K29.70 Gastritis, unspecified, without bleeding (principal); K44.9 Diaphragmatic hernia without obstruction or gangrene; Z12.11 Encounter for screening for malignant neoplasm of colon; K64.8 Other hemorrhoids | CPT/HCPCS: 43239; G0121 ==

== ENCOUNTER 2023-08-31 13:09 | Outpatient (REF) | payer OTHER, SELFPAY ==
--- NOTE | 2023-08-31 13:13 | EMG_ITS ---
Chief complaint: Continued numbness on both upper extremities. Says 3rd-5th digits. Left CTR and Cubital release from 07/22/21. Says left is slightly better after surgery. Chronic neck pain. Atrophy on left FDI. Reason for referral: Evaluate for neuropathy vs radiculopathy Referred by: Dr. Pedrito Luo Procedure done: Bilateral upper extremities NCS/EMG Patient says she does not need bilateral lower extremity tested today. Precautions and/or limitations: Icelandic speaking, seen with spanish interpreter/translator. The limb temperature was monitored continuously and remained between 32-36 degrees C during the performance of the NCS. Ulnar motor NCS was performed with moderate elbow flexion between 70-90 degrees, with across-elbow distance of 10 cm. Nerve Conduction Studies Anti Sensory Summary Table ?Stim Site NR Onset (ms) Norm Onset (ms) Peak (ms) Norm Peak (ms) O-P Amp (?V) Norm O-P Amp Site1 Site2 Delta-0 (ms) Dist (cm) Alejandro (m/s) Norm Alejandro (m/s) Left Median Anti Sensory (2nd Digit) Wrist ? 2.4 3.3 <3.6 26.1 >10 Wrist 2nd Digit 2.4 14.0 58 Right Median Anti Sensory (2nd Digit) Wrist ? 3.2 3.9 <3.6 18.8 >10 Wrist 2nd Digit 3.2 14.0 44 Right Radial Anti Sensory (Thumb) Forearm ? 1.5 2.0 <3.1 22.9 Forearm Thumb 1.5 0.0 Left Ulnar Anti Sensory (5th Digit) Wrist ? 2.5 3.0 <3.7 5.8 >15.0 Wrist 5th Digit 2.5 14.0 56 Right Ulnar Anti Sensory (5th Digit) Wrist ? 2.4 3.1 <3.7 30.0 >15.0 Wrist 5th Digit 2.4 14.0 58 Motor Summary Table ?Stim Site NR Onset (ms) Norm Onset (ms) O-P Amp (mV) Norm O-P Amp iAmp (mV) Amp (1st) (%) Site1 Site2 Delta-0 (ms) Dist (cm) Alejandro (m/s) Norm Alejandro (m/s) Left Median Motor (Abd Poll Brev) Wrist ? 3.4 <3.9 7.5 >4.5 9.9 100.0 Elbow Wrist 3.5 19.0 54 >45 Elbow ? 6.9 6.1 8.1 81.3 Right Median Motor (Abd Poll Brev) Wrist ? 4.5 <3.9 11.1 >4.5 13.0 100.0 Elbow Wrist 3.5 19.0 54 >45 Elbow ? 8.0 10.0 12.0 90.1 Left Ulnar Motor Run #2 (Abd Dig Minimi) Wrist ? 3.0 <3.0 4.2 >5 6.2 100.0 B Elbow Wrist 2.0 15.0 75 >45 B Elbow ? 5.0 3.7 5.7 88.1 A Elbow B Elbow 0.9 10.0 111 >45 A Elbow ? 5.9 3.7 5.6 88.1 Right Ulnar Motor (Abd Dig Minimi) Wrist ? 2.6 <3.0 6.3 >5 7.2 100.0 B Elbow Wrist 2.8 17.5 62 >45 B Elbow ? 5.4 6.2 7.1 98.4 A Elbow B Elbow 1.0 10.0 100 >45 A Elbow ? 6.4 6.3 7.5 100.0 Left UlnarH Motor (FDI) Wrist ? 3.4 <3.0 6.7 >5 8.0 100.0 B Elbow Wrist 2.9 15.0 52 >45 B Elbow ? 6.3 6.8 8.3 101.5 A Elbow B Elbow 1.3 10.0 77 >45 A Elbow ? 7.6 6.7 8.2 100.0 EMG ?Side Muscle Nerve Root Ins Act Fibs Psw Amp Dur Poly Recrt Int Pat Comment Right 1stDorInt Ulnar C8-T1 Nml Nml Nml Nml Nml 0 Nml Complete Right FlexCarRad Median C6-7 Nml Nml Nml Nml Nml 0 Nml Complete Right Biceps Musculocut C5-6 Nml Nml Nml Nml Nml 0 Nml Complete Right Triceps Radial C6-7-8 Nml Nml Nml Nml Nml 0 Nml Complete Right Deltoid Axillary C5-6 Nml Nml Nml Nml Nml 0 Nml Complete Left 1stDorInt Ulnar C8-T1 Nml Nml Nml Nml Nml 0 Nml Complete Left Biceps Musculocut C5-6 Nml Nml Nml Nml Nml 0 Nml Complete Left Triceps Radial C6-7-8 Nml Nml Nml Nml Nml 0 Nml Complete Left Deltoid Axillary C5-6 Nml Nml Nml Nml Nml 0 Nml Complete Left FlexCarpiUln Ulnar C8,T1 Incr 1+ 1+ Nml Nml 0 Nml Complete Paraspinal EMG ?Side Muscle Nerve Root Ins Act Fibs Psw Comment Right Cervical Upper Rami Nml Nml Nml Right Cervical Mid Rami Nml Nml Nml Right Cervical Lower Rami Nml Nml Nml Left Cervical Upper Rami Nml Nml Nml Left Cervical Mid Rami Nml Nml Nml Left Cervical Lower Rami Nml Nml Nml FINDINGS: Right median motor nerve showed prolonged distal latency, normal amplitude and normal conduction velocity. Right median sensory nerve showed prolonged peak latency. Left ulnar motor nerve, recording ADM, showed normal distal latency, small amplitude and normal conduction velocity. Left ulnar motor nerve, recording FDI, showed prolonged distal latency, normal amplitude and normal conduction velocity. Left ulnar sensory nerve showed small amplitude. All other nerves tested were within normal. Concentric needle EMG was performed in selected muscles of the bilateral upper extremities and cervical paraspinals. Study revealed signs of electric abnormalities as shown in the table below. IMPRESSION: 1. This is an abnormal study. 2. There is electrodiagnostic evidence for right moderate-severe median neuropathy at the wrist, consistent with carpal tunnel syndrome. 3. Left ulnar nerve still shows small amplitude, both motor and sensory components, but no conduction block across the elbow. Denervation seen on left FDI. 4. No electrodiagnostic evidence for brachial plexopathy or cervical radiculopathy. There is no electrodiagnostic evidence for ulnar neuropathy, brachial plexopathy, or cervical radiculopathy. CLINICAL COMMENT: Review of EMG done by Dr. Chavez in 2021 showed bilateral ulnar neuropathy with slowing of conduction velocities across the elbow. Right median neuropathy at the wrist also seen on that study. Today's study still shows right median neuropathy at the wrist. There is no longer any slowing of conduction velocity across the elbow of the ulnar nerves. Thank you for your kind referral. Gema Marcus MD, ISMAEL Board Certified, [place] Board [employer] and Rehabilitation (ABPMR) Board Certified, [place] Board [employer] Electrodiagnostic Medicine (ABEM) CODIN 66304 x 2 MTDD
== END 2023-08-31 13:10 | disposition home or self-care (01) ==
LOC: HO.NEURO 13:09
PROVIDERS: PCP Student in an Organized Health Care Education/Training Program; Visit Provider Student in an Organized Health Care Education/Training Program
DX: R20.0 Anesthesia of skin (principal); G62.9 Polyneuropathy, unspecified
CPT/HCPCS: 95886; 95911

== ENCOUNTER → 2023-08-31 13:13 | Outpatient (BNV) | payer OTHER, SELFPAY | PROVIDERS: PCP Student in an Organized Health Care Education/Training Program; Visit Provider Physical Medicine & Rehabilitation | DX: G56.01 Carpal tunnel syndrome, right upper limb (principal); G56.11 Other lesions of median nerve, right upper limb; G56.22 Lesion of ulnar nerve, left upper limb | CPT/HCPCS: 95886; 95911 ==

== ENCOUNTER 2023-09-05 12:12 | Outpatient (AMB) | payer OTHER, SELFPAY ==
--- NOTE | 2023-09-05 12:19 | A.OFFVIS_ITS ---
Intake Vital Signs 09/05/23 12:20 Height 5 ft 1 in Weight 155 lb BMI 29.3 BP 117/79 Blood Pressure Location Lt brachial Position Sitting Pulse 68 Intake Visit Reasons: s/p egd/colon Intake Note: Patient follow up for EGD/Colonoscopy results. Patient denies any GI issues. [place] Operator Required: Yes Accompanied by: Self / Same As Patient Allergies No Known Allergies [No Known Allergies*] Allergy (Verified 09/05/23 12:18) HPI s/p egd/colon HPI Details LAST VISIT GERD (gastroesophageal reflux disease) Screen for colon cancer Plan Patient denies any cardiac or respiratory symptoms.? Occasional epigastric discomfort postprandially with dyspepsia, without dysphagia or odynophagia. Will send patient for upper endoscopy. Will start patient on pantoprazole. Patient will call our office if she will continue to have symptoms. Denies any issues with anesthesia in the past.? Denies any history of sleep apnea.? No history infectious diseases in the past or present.? Patient is on low-dose aspirin.? Patient had echo and there is no increase in the size of ascending aortic aneurysm. Patient has no chest pain, shortness of breath with or without exertion. No family or personal history of colon cancer or polyps.? Patient denies melena, hematochezia, unintentional weight loss or ribbon like stools.? Discussed at length the pre-procedure,? prep, diet & medications as well as what to expect prior, during and after the procedure.?? Stressed the importance of good bowel prep. ?Recommended the use of Vaseline or Calmoseptine OTC & baby wipes with bowel movements to promote comfort.? ?Patient verbalizes understanding and agrees to plan of care.? She was given the opportunity to ask questions and all questions answered.? We will see her after the procedure.? Medications New pantoprazole take one tablet half an hour before breakfast 40 mg PO DAILY 90 tabs 2RF K21.9 bisacodyl (Dulcolax (bisacodyl)) take 2 tabs at noon the day before your colonoscopy 10 mg (2 x 5 mg) PO ONCE 2 tabs 0RF 1 da y Z12.11 polyethylene glycol 3350 (Miralax) As directed by gastroenterology department at [facility] 238 grams PO ONCE 238 grams 0RF Z12.11 UPPER ENDOSCOPY AND COLONOSCOPY Findings: Larynx:normal Esophagus: GE junction at 36 cm, diaphragm hiatus at 38 cm, mild erythema GEJ, bx taken as well as from distal esophagus -compatible with small hiatal hernia 2 cm Stomach: Patchy erythema Biopsies were obtained. Grade 2 flap valve on retroflexed examination of the cardia. Duodenum: Normal bulb and descending duodenum, Findings: Terminal Ileum-not intubated due to looping Cecum:normal Ascending Colon: normal Transverse Colon -normal Descending Colon:normal Sigmoid Colon: normal Rectum: Retroflexion with small internal hemorrhoids, grade I Anorectum - normal Colon preparation: [place] Bowel Preparation Scale Right colon; 2 Transverse colon: 2 Left colon; 2 (0 = Unprepared colon segment with mucos a not seen due to solid stool that cannot be cleared. 1 = Portion of mucosa of the colon segme nt seen, but other areas of the colon segment not well seen due to staining, residual stool and/or opaque liquid. 2 = Minor amount of residual staining, s mall fragments of stool and/or opaque liquid, but mucosa of colon segment seen well. 3 = Entire mucosa of colon segment seen well with no residual staining, small fragments of stool or opaque liquid) Impression and Post Procedure Diagnosis: Endoscopy Findings: gastritis small hiatal hernia Colonoscopy Findings: internal hemorrhoids Plan: Await Pathology results Repeat Colonoscopy in 10 years or earlier if clinically indicated High fiber diet leaflet avoid straining at stool, epsom salts and sitz bath, anusol supps or cream if h pylori pos then treat smoking cessation PATHOLOGY RESULTS Diagnosis A. Stomach, biopsy: Gastric antral mucosa with mild chronic inactive gastritis; negative for Helicobacter pylori, intestinal metaplasia and dysplasia. B. Gastroesophageal junction, biopsy: Squamous and columnar junctional mucosa with mild chronic inactive inflammation; negative for intestinal metaplasia and dysplasia. C. Esophagus, distal, biopsy: Squamous mucosa within normal limits; negative for inflammation (including intraepithelial eosinophils), fungal organisms and intestinal metaplasia TODAY'S VISIT: Patient is here today for follow-up and to discuss upper endoscopy and colonoscopy. Patient denies any ill effects from the prep, anesthesia or procedure itself. Patient was found to have mild inactive gastritis. No esophagitis, no Cruz's no H pylori. Patient had normal colonoscopy. Recommendation for asymptomatic screening in 10 years, sooner if clinically necessary. Patient reports to be feeling well except for occasional acid reflux. Patient ran out of her pantoprazole and reports that when she was taking it it was helpful. Patient denies any melena, hematochezia. Occasional dyspepsia without dysphagia or odynophagia. Upper endoscopy and colonoscopy and biopsy results discussed with patient. [facility] Medical History Leucocytosis Thrombocytosis Anxiety Depression Carpal tunnel syndrome Multinodular thyroid Vitamin D deficiency Hypothyroidism Surgical History History of carpal tunnel surgery History of lumpectomy of right breast Pseudoangiomatous stromal hyperplasia of breast History of right breast biopsy (11/2017) History of left inguinal hernia repair Hx of tubal ligation Hx of shoulder surgery (09/2014) Family History Father HTN (hypertension) Mother HTN (hypertension) Social History Household Members: Children Housing: Apartment Are you a primary care center manager to a significant other at home: Yes Do you presently have visiting nurse or other home services: No Alcohol intake: never Patient Tobacco Use Status: Current everyday Tobacco user Tobacco use type: Cigarette Cigarettes Per Day: 8 Years Smoked: 20 Second Hand Smoke Exposure: No service: No Current occupational status: employed 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 Review of Systems Const Denies weight gain and Denies weight loss ENT Reports no additional complaints, Denies dysphagia and Denies odynophagia Card Reports no additional complaints Resp Reports no additional complaints GI Denies abdominal pain, Denies belching, Denies melena, Denies bloating, Denies change in bowel habits, Denies dysphagia, Denies excessive flatus, Denies dyspepsia, Denies heartburn, Denies diarrhea, Denies loose stools, Denies nausea, Denies odynophagia and Denies vomiting Musc Reports no additional complaints Neuro Reports no additional complaints Psych Reports no additional complaints Endo Reports no additional complaints Physical Exam Vital Signs: Last Vital Signs Pulse 68 09/05/23 12:20 BP 117/79 09/05/23 12:20 BMI result Body Mass Index 29.3 Const General: healthy appearing, no acute distress and well developed Nutritional Appearance: well nourished Orientation/consciousness: patient oriented x3 Resp Effort & Inspection: normal respiratory effort, able to speak in complete sentences, no tracheal deviation and symmetric chest movement Auscultation: clear to auscultation bilaterally Cardio Rate: regular rate GI Inspection: Yes normal to inspection and No distended Palpation (GI): Soft to palpation, not firm, nontender and No hepatosplenomegaly present Auscultation: normal bowel sounds General: Yes no CVA tenderness Back/Spine/Pelvis Back: no CVA tenderness Skin General skin exam: elasticity normal, turgor normal and dry skin Neuro General: patient oriented x3 Psych Appearance: grossly normal Mental Status: mental status grossly normal Assessment & Plan Assessment & Plan (1) Status post colonoscopy: Code(s): Z98.890 - Other specified postprocedural states (2) Gastritis: Code(s): K29.70 - Gastritis, unspecified, without bleeding Qualifiers: Gastritis type: superficial Chronicity: chronic Gastritis bleeding: without bleeding Qualified Code(s): K29.30 - Chronic superficial gastritis without bleeding (3) GERD (gastroesophageal reflux disease): Code(s): K21.9 - Gastro-esophageal reflux disease without esophagitis Qualifiers: Esophagitis presence: without esophagitis Qualified Code(s): K21.9 - Gastro-esophageal reflux disease without esophagitis Plan Non symptomatic colorectal screening in 10 years, sooner if clinically necessary. Patient will restart taking pantoprazole daily. Discussed with patient avoiding dietary triggers and late night snacking. Staying upright for minimum 3 hours after meals discussed with patient. Smoking cessation encouraged. Patient will return in the office for follow-up in 6 months, sooner on as needed basis. Patient is agreeable to this plan and verbalizes understanding of instructions. She was given the opportunity to ask questions and all questions answered. Thank you for allowing me to participate in her care Medications: New pantoprazole take one tablet half an hour before breakfast 40 mg PO DAILY 30 tabs 2RF K21.9 - Gastro-esophageal reflux disease without esophagitis Coding Level of Care Code Est Pt Level 4 (09894) Diagnoses Status post colonoscopy Z98.890 Chronic superficial gastritis without bleeding K29.30 Gastritis type: superficial Chronicity: chronic Gastritis bleeding: without bleeding Gastroesophageal reflux disease without esophagitis K21.9 Esophagitis presence: without esophagitis Time Spent (min) 35 Comment 20 minutes spent with patient and additional 15 minutes spent reviewing her records
[2023-09-05 12:20] VITALS: BP 117/79; PULSE 68; BMI 29.3
== END 2023-09-05 12:38 | disposition home or self-care (01) ==
PROVIDERS: PCP Student in an Organized Health Care Education/Training Program; Visit Provider Nurse Practitioner Family
DX: Z98.890 Other specified postprocedural states (principal); K29.30 Chronic superficial gastritis without bleeding; K21.9 Gastro-esophageal reflux disease without esophagitis
CPT/HCPCS: 99214

== ENCOUNTER → 2023-09-05 12:12 | Outpatient (BNVA) | payer OTHER, SELFPAY | PROVIDERS: PCP Student in an Organized Health Care Education/Training Program; Visit Provider Nurse Practitioner Family | DX: Z98.890 Other specified postprocedural states (principal); K21.9 Gastro-esophageal reflux disease without esophagitis; K29.30 Chronic superficial gastritis without bleeding | CPT/HCPCS: 99212 ==

== ENCOUNTER 2023-11-29 12:05 | Outpatient (AMB) | payer OTHER, SELFPAY ==
--- NOTE | 2023-11-29 12:25 | A.OFFVIS_ITS ---
Vital Signs 11/29/23 12:28 11/29/23 12:33 Height 5 ft 1 in 5 ft 1 in Weight 161 lb 161 lb BMI 30.4 30.4 Handedness Right Intake Visit Reasons: ov-carul tunnel syndrome Rt wrist Intake Note: Delia is a 50 year old female who presents today to discuss Carpal tunnel and cubital tunnel release for her right hand. Patient report she has been having burning, tingling, and numbness for about 10 years that has worsened. She expresses she has difficulty gripping and grasping with her hand. Her main interest today is discussing surgery for her right hand. S/P Left hand Carpal tunnel and Cubital tunnel \ release from 07/22/21. [employer] Operator Name: [id number] Allergies No Known Allergies [No Known Allergies*] Allergy (Verified 11/29/23 12:37) HPI HPI ov-carul tunnel syndrome Rt wrist: Details: Delia is a 52 year old right hand dominant Kenyan speaking woman who presents for a NCS review of her right hand numbness. She complains of numbness for several years in her right middle, ring, and small fingers. Symptoms intermittent, but daily, worse at night. She also complains of her ring finger locking on her at times. She denies any numbness in her right thumb or index finger. She has a hx of a left carpal tunnel & cubital tunnel release, DOS: 07/22/21. She felt her left hand sensation had slightly improved post-operatively. She had no complaints today [facility] Medical History Leucocytosis Thrombocytosis Anxiety Depression Carpal tunnel syndrome Multinodular thyroid Vitamin D deficiency Hypothyroidism Surgical History History of carpal tunnel surgery History of lumpectomy of right breast Pseudoangiomatous stromal hyperplasia of breast History of right breast biopsy (11/2017) History of left inguinal hernia repair Hx of tubal ligation Hx of shoulder surgery (09/2014) Family History Father HTN (hypertension) Mother HTN (hypertension) Social History (Updated 11/29/23 @ 12:38 by Lamar Mcdermott) Household Members: Children Housing: Apartment Are you a primary career orientation teacher to a significant other at home: Yes Do you presently have visiting nurse or other home services: No Alcohol intake: never Patient Tobacco Use Status: Current everyday Tobacco user Tobacco use type: Cigarette Cigarettes Per Day: 8 Years Smoked: 20 Second Hand Smoke Exposure: No service: No Current occupational status: unemployed Current occupation: rt handed Review of Systems Const All systems reviewed & are unremarkable except as noted in HPI and below Physical Exam Vital Signs: BMI result Body Mass Index 30.4 Const General: no acute distress and alert Orientation/consciousness: patient oriented x3 Neuro General: patient oriented x3 Extrem Other: Evaluation of Right Upper Extremity: The patient is alert, oriented, and in no acute distress Neuro: Median, Ulnar, Radial nerves motor and sensory intact and sensation is normal to the tips of all digits Vascular: Cap refill brisk ROM: She can make a fist and extend all her digits Visible and palpable locking & catching of the ring finger Tender over the a1 gray of the ring finger Nerve Conduction study: IMPRESSION: 1. This is an abnormal study. 2. There is electrodiagnostic evidence for right moderate-severe median neuropathy at the wrist, consistent with carpal tunnel syndrome. 3. Left ulnar nerve still shows small amplitude, both motor and sensory components, but no conduction block across the elbow. Denervation seen on left FDI. 4. No electrodiagnostic evidence for brachial plexopathy or cervical radiculopathy. There is no electrodiagnostic evidence for ulnar neuropathy, brachial plexopathy, or cervical radiculopathy. CLINICAL COMMENT: Review of EMG done by Dr. Chavez in 2021 showed bilateral ulnar neuropathy with slowing of conduction velocities across the elbow. Right median neuropathy at the wrist also seen on that study. Today's study still shows right median neuropathy at the wrist. There is no longer any slowing of conduction velocity across the elbow of the ulnar nerves. Gema Marcus MD, ISMAEL 08/31/23 Psych Appearance: grossly normal Affect: normal affect Attitude: cooperative Assessment & Plan Assessment & Plan (1) Carpal tunnel syndrome of right wrist: Code(s): G56.01 - Carpal tunnel syndrome, right upper limb Category: Medical (2) Trigger finger, right ring finger: Code(s): M65.341 - Trigger finger, right ring finger Category: Medical (3) Cubital tunnel syndrome on right: Code(s): G56.21 - Lesion of ulnar nerve, right upper limb Category: Medical Plan Assessment and plan: 1. Right cubital tunnel syndrome Symptoms intermittent, but daily, worse at night NCS from 04/29/21 showed mild cubital tunnel syndrome NCS from 08/31/23 negative for cubital tunnel syndrome This is her primary complaint today 2. Right carpal tunnel syndrome, moderate-severe Symptoms intermittent, but daily, worse at night Primarily in the middle finger 3. Right ring finger trigger finger I educated her about these conditions I discussed operative and non-operative treatment options The patient would like to proceed with surgery The risks and benefits of operative treatment were discussed with the patient and the patient wishes to proceed with surgery. These risks include, but are not limited to risk of damage to blood vessels, nerves, tendons, infection, recurrence, incomplete relief of preoperative symptoms, persistent pain, possible need for further surgery and the risks associated with regional blocks and anesthesia. The plan is to take the patient to the operating room sometime in the next few weeks for the following procedures: 1. Right cubital tunnel release vs transposition, under general 2. Right carpal tunnel release, under general 3. Right ring finger trigger release, under general All of the preoperative paperwork including the consent was reviewed today. All the patient's questions were answered. The patient understands that they will be contacted by our assistant spa manager soon to schedule this procedure She denies Diabetes, blood thinners, asthma, heart, lung, kidney issues 4. Left cubital tunnel syndrome, S/P release DOS: 07/22/21 With good resolution of symptoms 5. Left carpal tunnel syndrome, S/P release DOS: 07/22/21 With good resolution of symptoms Scribed for Miranda Daigle MD by Marvin Gleason medical clinic manager, on 11/29/23 at 1:10 PM, EST. Coding Level of Care Code Est Pt Level 4 (65357) Diagnoses Carpal tunnel syndrome of right wrist G56.01 Trigger finger, right ring finger M65.341 Cubital tunnel syndrome on right G56.21
[2023-11-29 12:28] VITALS: BMI 30.4
[2023-11-29 12:33] VITALS: BMI 30.4
== END 2023-11-29 13:17 | disposition home or self-care (01) ==
PROVIDERS: PCP Student in an Organized Health Care Education/Training Program; Visit Provider Orthopaedic Surgery
DX: G56.01 Carpal tunnel syndrome, right upper limb (principal); M65.341 Trigger finger, right ring finger; G56.21 Lesion of ulnar nerve, right upper limb
CPT/HCPCS: 99214

== ENCOUNTER → 2023-11-29 12:05 | Outpatient (BNVA) | payer OTHER, SELFPAY | PROVIDERS: PCP Student in an Organized Health Care Education/Training Program; Visit Provider Orthopaedic Surgery | DX: G56.01 Carpal tunnel syndrome, right upper limb (principal); G56.21 Lesion of ulnar nerve, right upper limb; M65.341 Trigger finger, right ring finger | CPT/HCPCS: 99212 ==

== ENCOUNTER 2024-01-29 10:53 | Outpatient (AMB) | payer OTHER, SELFPAY ==
[2024-01-29 11:01] VITALS: BP 120/70; PULSE 66; BMI 30.3
--- NOTE | 2024-01-29 11:01 | MHC.OFFVIS ---
Vital Signs 01/29/24 11:01 Height 5 ft 1 in Weight 160 lb 7.944 oz BMI 30.3 BP 120/70 Blood Pressure Location Rt brachial Position Sitting Pulse 66 Pulse Source Pulse Oximeter Intake Visit Reasons: 1 yr f/up Intake Note: 1 yr f/up- pt is doing fine Fur Blower Required: Yes Fur Blower Name: [id number] Accompanied by: Self / Same As Patient Allergies No Known Allergies [No Known Allergies*] Allergy (Verified 11/29/23 12:37) Medication List - Last Reconciled 01/29/24 by Zan Lambert MD amlodipine 10 mg PO DAILY aspirin (Adult Aspirin Regimen) 81 mg PO DAILY cholecalciferol (vitamin D3) 50 mcg PO DAILY 30 days duloxetine 1 cap PO DAILY hydrochlorothiazide 12.5 mg PO DAILY hydroxyzine pamoate 25 mg PO BID levothyroxine 25 mcg PO QAM metoprolol succinate ER 50 mg PO DAILY 30 days mirtazapine 7.5 mg PO BEDTIME pantoprazole 40 mg PO DAILY HPI Comments Details: 53-year-old female who is here for follow-up. She was seen for palpitations and dizziness. She was sent for Holter monitoring which showed rare premature atrial complexes and PVCs. No significant sustained arrhythmia was noted on the 3 day Holter monitor.. She had an echocardiogram which showed normal biventricular function with mild aortic valve stenosis and mildly dilated ascending aorta. She was drinking 3-4 glasses was soda daily and she was advised to cut back.. Does not drink any other caffeinated drinks. She previously was describing a lightheaded feeling when she changes her posture. She was advised to keep herself well hydrated and maybe use some Gatorade. She returns for follow-up and is complaining that she continues get palpitations. These continue to be infrequent and can happen once every 1-2 weeks. She also gets slight dizziness when this happens. She has no chest discomfort. She is denying shortness of breath. She physically not active and does not exercise regularly. She is asking why she is on 2 antihypertensive medications. It appears she was already on antihypertensive therapy before she came to see us. She is saying she was started on blood pressure medications when she went to the emergency department. Her blood pressure control mostly has been good. Was previously advised to discuss with her psychiatrist about stopping hydroxy seen because that can cause palpitations tachycardia. 07/24/23: She is here for follow-up. She has been doing well. She gets once a month palpitations lasting for few minutes. Previously had cardiac event monitor which did not show any arrhythmia. Echocardiography has shown ascending aorta of 3.5 cm. Blood pressure is well controlled. She is a smoker. She has not had recent cholesterol testing. 01/29/24: She is here for f/u. BP well controlled. Continues to smoke. Mildly dilated aorta 3.5 cm. [facility] Medical History Leucocytosis Thrombocytosis Anxiety Depression Carpal tunnel syndrome Multinodular thyroid Vitamin D deficiency Hypothyroidism Surgical History History of carpal tunnel surgery History of lumpectomy of right breast Pseudoangiomatous stromal hyperplasia of breast History of right breast biopsy (11/2017) History of left inguinal hernia repair Hx of tubal ligation Hx of shoulder surgery (09/2014) Family History Father HTN (hypertension) Mother HTN (hypertension) Social History Household Members: Children Housing: Apartment Are you a primary medical care manager to a significant other at home: Yes Do you presently have visiting nurse or other home services: No Alcohol intake: never Patient Tobacco Use Status: Current everyday Tobacco user Tobacco use type: Cigarette Cigarettes Per Day: 8 Years Smoked: 20 Second Hand Smoke Exposure: No service: No Current occupational status: unemployed Current occupation: rt handed Review of Systems Const Denies chills, Denies fatigue, Denies fever(s), Denies frequent falls, Denies weakness, Denies weight gain and Denies weight loss ENT Denies dizziness Card Denies chest pain, Denies leg edema, Denies lightheadedness, Denies palpitations, Denies dyspnea and Denies dyspnea on exertion Resp Denies cough, Denies dyspnea and Denies dyspnea on exertion GI Denies hematochezia Musc Denies abnormal gait, Denies muscle weakness, Denies numbness, Denies radiating pain into limb and Denies tingling Neuro Denies abnormal gait, Denies dizziness, Denies frequent falls, Denies numbness, Denies tingling and Denies weakness Endo Denies fatigue and Denies palpitations Physical Exam Vital Signs: Last Vital Signs Pulse 66 01/29/24 11:01 BP 120/70 01/29/24 11:01 BMI result Body Mass Index 30.3 GENERAL APPEARANCE: in no acute distress, pleasant. NECK: no carotid bruit, no jugular venous distention. SKIN: no suspicious lesions, warm and dry. HEART: no murmurs, regular rate and rhythm. LUNGS: clear to auscultation bilaterally. ABDOMEN: soft, nontender. EXTREMITIES: no edema. PERIPHERAL PULSES: equal. NEUROLOGIC: No gross deficits, AAO X 3 Assessment & Plan Assessment & Plan (1) Mild dilation of ascending aorta: Code(s): I77.810 - Thoracic aortic ectasia Category: Medical Plan Pleasant 53 year female who is here for follow-up. She has background history of palpitations, essential hypertension and mild dilation of ascending aorta. She is on amlodipine, hydrochlorothiazide and metoprolol succinate. Blood pressure is well controlled. She has ascending aorta which is mildly dilated at 3.5 cm. She is a smoker. I have advised her to stop smoking again. Blood pressure is well controlled. f/u in few months. Thank you for allowing me to participate in the care of your patient. Please feel free to contact me if you have any questions. Coding Level of Care Code Est Pt Level 4 (39019) Diagnoses Mild dilation of ascending aorta I77.810
== END 2024-01-29 11:37 | disposition home or self-care (01) ==
PROVIDERS: PCP Student in an Organized Health Care Education/Training Program; Visit Provider Internal Medicine Cardiovascular Disease
DX: I77.810 Thoracic aortic ectasia (principal)
CPT/HCPCS: 99214

== ENCOUNTER → 2024-01-29 10:53 | Outpatient (BNVA) | payer OTHER, SELFPAY | PROVIDERS: PCP Student in an Organized Health Care Education/Training Program; Visit Provider Internal Medicine Cardiovascular Disease | DX: I77.810 Thoracic aortic ectasia (principal) | CPT/HCPCS: 99212 ==

== ENCOUNTER 2024-01-31 12:27 | Outpatient (AMB) | payer OTHER, SELFPAY ==
--- NOTE | 2024-01-31 12:33 | MHC.OFFVIS ---
Vital Signs 01/31/24 12:58 Height 5 ft 1 in Weight 160 lb 7 oz BMI 30.3 Intake Visit Reasons: Preop CTR, cubital, RF trig 02/05/24 AR Intake Note: Delia is a 53 yo right hand dominant female who presents today pre-operatively for right CTR, right cubital release vs trans, ring finger trigger release scheduled on 02/05/[address] Daigle. Consents reviewed and signed in office. Durability Technician Required: No Allergies No Known Allergies [No Known Allergies*] Allergy (Verified 01/31/24 12:59) HPI HPI Preop CTR, cubital, RF trig 02/05/24 AR: Details: Delia is a 53 year old right hand dominant Slovenian speaking woman who returns to discuss her right carpal tunnel syndrome She complains of numbness for several years in her right middle, ring, and small fingers. Symptoms intermittent, but daily, worse at night. She also complains of her ring finger locking on her at times. She denies any numbness in her right thumb or index finger. She has a hx of a left carpal tunnel & cubital tunnel release, DOS: 07/22/21. She felt her left hand sensation had slightly improved post-operatively. She had no complaints today [facility] Medical History Leucocytosis Thrombocytosis Anxiety Depression Carpal tunnel syndrome Multinodular thyroid Vitamin D deficiency Hypothyroidism Surgical History History of carpal tunnel surgery History of lumpectomy of right breast Pseudoangiomatous stromal hyperplasia of breast History of right breast biopsy (11/2017) History of left inguinal hernia repair Hx of tubal ligation Hx of shoulder surgery (09/2014) Family History Father HTN (hypertension) Mother HTN (hypertension) Social History Household Members: Children Housing: Apartment Are you a primary transitional care manager to a significant other at home: Yes Do you presently have visiting nurse or other home services: No Alcohol intake: never Patient Tobacco Use Status: Current everyday Tobacco user Tobacco use type: Cigarette Cigarettes Per Day: 8 Years Smoked: 20 Second Hand Smoke Exposure: No service: No Current occupational status: unemployed Current occupation: rt handed Physical Exam Vital Signs: BMI result Body Mass Index 30.3 Const General: no acute distress and alert Orientation/consciousness: patient oriented x3 Neuro General: patient oriented x3 Extrem Other: Evaluation of Right Upper Extremity: The patient is alert, oriented, and in no acute distress Neuro: Dense numbness to the tips of all digits Vascular: Cap refill brisk ROM: She can make a fist and extend all her digits Visible and palpable locking & catching of the ring finger Tender over the a1 gray of the ring finger Nerve Conduction study: IMPRESSION: 1. This is an abnormal study. 2. There is electrodiagnostic evidence for right moderate-severe median neuropathy at the wrist, consistent with carpal tunnel syndrome. 3. Left ulnar nerve still shows small amplitude, both motor and sensory components, but no conduction block across the elbow. Denervation seen on left FDI. 4. No electrodiagnostic evidence for brachial plexopathy or cervical radiculopathy. There is no electrodiagnostic evidence for ulnar neuropathy, brachial plexopathy, or cervical radiculopathy. CLINICAL COMMENT: Review of EMG done by Dr. Chavez in 2021 showed bilateral ulnar neuropathy with slowing of conduction velocities across the elbow. Right median neuropathy at the wrist also seen on that study. Today's study still shows right median neuropathy at the wrist. There is no longer any slowing of conduction velocity across the elbow of the ulnar nerves. Gema Marcus MD, ISMAEL 08/31/23 Psych Appearance: grossly normal Affect: normal affect Attitude: cooperative Assessment & Plan Assessment & Plan (1) Carpal tunnel syndrome of right wrist: Code(s): G56.01 - Carpal tunnel syndrome, right upper limb Category: Medical (2) Trigger finger, right ring finger: Code(s): M65.341 - Trigger finger, right ring finger Category: Medical (3) Cubital tunnel syndrome on right: Code(s): G56.21 - Lesion of ulnar nerve, right upper limb Category: Medical Plan Assessment and plan: 1. Right cubital tunnel syndrome With dense numbness NCS from 04/29/21 showed mild cubital tunnel syndrome NCS from 08/31/23 negative for cubital tunnel syndrome This is her primary complaint today 2. Right carpal tunnel syndrome, moderate-severe With dense numbness Primarily in the middle finger 3. Right ring finger trigger finger I educated her about these conditions I discussed operative and non-operative treatment options The patient would like to proceed with surgery The risks and benefits of operative treatment were discussed with the patient and the patient wishes to proceed with surgery. These risks include, but are not limited to risk of damage to blood vessels, nerves, tendons, infection, recurrence, incomplete relief of preoperative symptoms, persistent pain, possible need for further surgery and the risks associated with regional blocks and anesthesia. The plan is to take the patient to the operating room sometime on 02/05/24 for the following procedures: 1. Right cubital tunnel release vs transposition, under general 2. Right carpal tunnel release, under general 3. Right ring finger trigger release, under general All of the preoperative paperwork including the consent was reviewed today. All the patient's questions were answered. She denies Diabetes, blood thinners, asthma, lung, kidney issues She is a smoker & has a mild dilation of ascending aorta, and follows with Cardiology for this 4. Left cubital tunnel syndrome, S/P release DOS: 07/22/21 With good resolution of symptoms 5. Left carpal tunnel syndrome, S/P release DOS: 07/22/21 With good resolution of symptoms Scribed for Miranda Daigle MD by Marvin Gleason, medical facilities section director, on 01/31/24 at 1:10 PM, EST. Coding Level of Care Code Est Pt Level 4 (57563) Diagnoses Carpal tunnel syndrome of right wrist G56.01 Trigger finger, right ring finger M65.341 Cubital tunnel syndrome on right G56.21
[2024-01-31 12:58] VITALS: BMI 30.3
== END 2024-01-31 13:40 | disposition home or self-care (01) ==
PROVIDERS: PCP Student in an Organized Health Care Education/Training Program; Visit Provider Orthopaedic Surgery
DX: G56.01 Carpal tunnel syndrome, right upper limb (principal); M65.341 Trigger finger, right ring finger; G56.21 Lesion of ulnar nerve, right upper limb
CPT/HCPCS: 99024

== ENCOUNTER → 2024-01-31 12:27 | Outpatient (BNVA) | payer OTHER, SELFPAY | PROVIDERS: PCP Student in an Organized Health Care Education/Training Program; Visit Provider Orthopaedic Surgery | DX: Z01.818 Encounter for other preprocedural examination (principal); G56.01 Carpal tunnel syndrome, right upper limb; M65.341 Trigger finger, right ring finger; G56.21 Lesion of ulnar nerve, right upper limb | CPT/HCPCS: 99212 ==

== ENCOUNTER 2024-02-05 06:08 | Day surgery (SDC) | payer OTHER, SELFPAY ==
--- NOTE | 2024-02-01 09:56 | HO.ANESPROP2 ---
HPI - Anesthesia Eval Consult details Narrative: 53yo F for Right Cubital Tunnel Release, Carpal Tunnel Release, Ring finger Trigger Release s/p EGD/[place] 08/2023 with [facility] Active Problems Active Problems: All Active Problems Trigger finger, right ring finger (Acute) Uterine myoma (Acute) Mild dilation of ascending aorta (Acute) Abnormal uterine bleeding (AUB) (Acute) Sinus tachycardia (Acute) Mild dilation of ascending aorta (Acute) Carpal tunnel syndrome of left wrist (Acute) Carpal tunnel syndrome of right wrist (Acute) Cubital tunnel syndrome on left (Acute) Cubital tunnel syndrome on right (Acute) Thrombocytosis (Chronic) Palpitations (Acute) Dizziness (Acute) Pseudoangiomatous stromal hyperplasia of breast (Acute) Multinodular thyroid (Acute) Vitamin D deficiency (Acute) Hypothyroidism (Acute) Past Medical History Medical History Leucocytosis Thrombocytosis Anxiety Depression Carpal tunnel syndrome Multinodular thyroid Vitamin D deficiency Hypothyroidism Family History Family History Father HTN (hypertension) Mother HTN (hypertension) Family history of problems with anesthesia: No Surgical History Surgical History History of bone marrow biopsy History of carpal tunnel surgery History of lumpectomy of right breast History of right breast biopsy (11/2017) History of left inguinal hernia repair Hx of tubal ligation Hx of shoulder surgery (09/2014) History of Problems with Anesthesia: No Social History Social History Household Members: Children Housing: Apartment Are you a primary district manager primary care sales to a significant other at home: Yes Do you presently have visiting nurse or other home services: No Alcohol intake: never Patient Tobacco Use Status: Current everyday Tobacco user Tobacco use type: Cigarette Cigarettes Per Day: 8 Years Smoked: 20 Second Hand Smoke Exposure: No service: No Current occupational status: unemployed Current occupation: rt handed Meds Allergies Allergy/AdvReac Type Severity Reaction Status Date / Time No Known Allergies Allergy Verified 02/05/24 07:22 [No Known Allergies*] Home Medications ?Medication ?Instructions ?Recorded ?Confirmed ?Last Taken ?Type mirtazapine 7.5 mg tablet 7.5 mg PO BEDTIME 09/20/21 02/01/24 Unknown History duloxetine 60 mg capsule,delayed 1 cap PO DAILY 02/14/22 02/01/24 03/23/22 History release hydrochlorothiazide 12.5 mg tablet 12.5 mg PO DAILY 07/04/22 02/01/24 Unknown History amlodipine 10 mg tablet 10 mg PO DAILY 03/22/23 02/01/24 Unknown History aspirin 81 mg tablet,delayed 81 mg PO DAILY 04/04/23 02/01/24 02/04/24 History release (Adult Aspirin Regimen) hydroxyzine pamoate 25 mg capsule 25 mg PO BID 04/04/23 02/01/24 Unknown History Assessment and Plan Assessment Anesthesia Assessment: Chart Reviewed Final Anesthetic Review Family History of Problems with Anesthesia: No History of Problems with Anesthesia: No
[2024-02-01 13:03] VITALS: BMI 30.2
[2024-02-05] VITALS (10 sets, daily range): BP systolic 114–144; BP diastolic 70–83; PULSE 62–87; RESP 14–18; TEMP 36.1–36.6; O2SAT 93–98; BMI 30.6
[2024-02-05] MEDS: Lactated Ringers 1,000 ML 100 ML IVCONT (06:22)
--- NOTE | 2024-02-05 07:24 | PC.NURSE ---
dr. ryder aware that patient is a smoker. lungs clear, but diminished throughtout. ok to proceed. no interventions at this time.
--- NOTE | 2024-02-05 07:26 | HO.ANESPROP2 ---
[facility], LAT[facility] Active Problems Active Problems: All Active Problems Trigger finger, right ring finger (Acute) Uterine myoma (Acute) Mild dilation of ascending aorta (Acute) Abnormal uterine bleeding (AUB) (Acute) Sinus tachycardia (Acute) Mild dilation of ascending aorta (Acute) Dizziness (Acute) Palpitations (Acute) Thrombocytosis (Chronic) Cubital tunnel syndrome on right (Acute) Cubital tunnel syndrome on left (Acute) Carpal tunnel syndrome of right wrist (Acute) Carpal tunnel syndrome of left wrist (Acute) Pseudoangiomatous stromal hyperplasia of breast (Acute) Multinodular thyroid (Acute) Vitamin D deficiency (Acute) Hypothyroidism (Acute) Past Medical History Medical History Leucocytosis Thrombocytosis Anxiety Depression Carpal tunnel syndrome Multinodular thyroid Vitamin D deficiency Hypothyroidism Functional capacity: independent ambulation Patient : No Family History Family History Father HTN (hypertension) Mother HTN (hypertension) Family history of problems with anesthesia: No Surgical History Surgical History History of bone marrow biopsy History of carpal tunnel surgery History of lumpectomy of right breast History of right breast biopsy (11/2017) History of left inguinal hernia repair Hx of tubal ligation Hx of shoulder surgery (09/2014) History of Problems with Anesthesia: No Social History Social History Household Members: Children Housing: Apartment Are you a primary child care group leader to a significant other at home: Yes Do you presently have visiting nurse or other home services: No Alcohol intake: never Patient Tobacco Use Status: Current everyday Tobacco user Tobacco use type: Cigarette Cigarettes Per Day: 8 Years Smoked: 20 Smoked in Last 30 Days: Yes Patient Interested in Nicotine Replacement: No Second Hand Smoke Exposure: No Are you DNR?: No Advance Directives: No Advance Directives Information Provided: Yes Nutrition Risks: No Nutritional Risk FDLMP: more than one year service: No Current occupational status: unemployed Current occupation: rt handed Meds Allergies Allergy/AdvReac Type Severity Reaction Status Date / Time No Known Allergies Allergy Verified 02/05/24 07:22 [No Known Allergies*] Active Medications: Current Medications Lactated Ringer's (Lr) 1,000 mls @ 100 mls/hr IVCONT .Q10H LUCAS Last Admin: 02/05/24 06:22 Dose: 100 mls/hr Home Medications ?Medication ?Instructions ?Recorded ?Confirmed ?Last Taken ?Type mirtazapine 7.5 mg tablet 7.5 mg PO BEDTIME 09/20/21 02/01/24 Unknown History duloxetine 60 mg capsule,delayed 1 cap PO DAILY 02/14/22 02/01/24 03/23/22 History release hydrochlorothiazide 12.5 mg tablet 12.5 mg PO DAILY 07/04/22 02/01/24 Unknown History amlodipine 10 mg tablet 10 mg PO DAILY 03/22/23 02/01/24 Unknown History aspirin 81 mg tablet,delayed 81 mg PO DAILY 04/04/23 02/01/24 02/04/24 History release (Adult Aspirin Regimen) hydroxyzine pamoate 25 mg capsule 25 mg PO BID 04/04/23 02/01/24 Unknown History Exam Height,Weight and Vital Signs: Height 5 ft 1 in Weight 73.482 kg Last Vital Signs Temp 97.9 F 02/05/24 06:32 Pulse 62 02/05/24 06:32 Resp 18 02/05/24 06:32 BP 126/80 02/05/24 06:32 Pulse Ox 98 02/05/24 06:32 O2 Del Method Room Air 02/05/24 06:32 Airway Mallampati Class: II TM Dist: >3cm Neck ROM: Full Heart: RRR Lungs: TA Assessment and Plan Assessment Anesthesia Assessment: Anesthesia Plan Discussed, Smoking Cess. Discussed and Chart Reviewed Final Anesthetic Review Family History of Problems with Anesthesia: No History of Problems with Anesthesia: No NPO: Yes ASA Class: II Final Preanesthetic Review: Meds/Allgs Chart Reviewed, Consent Obtained/Reviewed and Anes Risks/Benef Reviewed Patient Risk: Low Procedure Risk: Low Anesthetic Plan Anesthetic Plan: GA Disposition: Standard PACU
--- NOTE | 2024-02-05 07:35 | PC.NURSE ---
patient speaks/understands [place] good, safety officer needed for detailed information per pt. request.
--- NOTE | 2024-02-05 07:39 | MHC.SHP ---
Pre-Procedural Eval Section A - 24 Hr Update-Section A only Date of Service: 02/05/24 The patient is an INPATIENT: No Changes since office visit: No Cold of Flu in the past 2 weeks, No New Medical Problems, No Changes in Medication and No Patient answered all questions The patient has been examined within 24 hours of the surgical procedure. The History & Physical has been completed within 30 days and I have reviewed it.: Yes Section B - Complete if H&P > 30 days Chief Complaint: lesion of ulnar,trigger finger,carpal tunnel Allergies: Allergies Allergy/AdvReac Type Severity Reaction Status Date / Time No Known Allergies Allergy Verified 02/05/24 07:22 [No Known Allergies*] Plan I have reviewed the history and physical and performed a pertinent physical examination on my patient. No changes have occurred unless specified. Time Spent With Patient Time: Total time managing care of this patient today ____ minutes.
--- NOTE | 2024-02-05 07:40 | P.OP_ITS ---
Operative Note Operative Note Date of Service: 02/05/24 Narrative: Operative Note Narrative: Preop diagnosis: 1. Right Cubital tunnel syndrome 2. Right carpal tunnel syndrome 3. Right ring finger trigger finger Postop diagnosis: Same Procedure: 1. Right Cubital Tunnel Release 2. Right carpal tunnel release 3. Right ring finger trigger release Surgeon: Miranda Daigle MD Public Policy Associate: None Anesthesia: General Anesthesia Findings: Thickening and fibrosis about the ulnar nerve at the cubital tunnel, as well as in the palmar aspect of the carpal tunnel. No locking or catching with passive range of motion of the ring finger after A1 gray release Implants: none Tourniquet time: 40 minutes EBL: 5.0 ml Specimen: none Drains: None Complications: None Disposition: Brought to the recovery room in stable condition Plan: Follow-up in 10-14 days for wound check, and suture removal Indications: The patient is 53 years old with right cubital tunnel syndrome, carpal tunnel syndrome, and a ring finger trigger finger . The risks and b enefits of operative treatment, including but not limited to risk of damage to blood vessels, nerves, tendons, infection, recurrence, persistent pain or numbness, incomplete resolution of preoperative symptoms, or need for further surgery were discussed with the patient and they wished to proceed with surgery. Procedure: Once consent was obtained patient was brought back to the operating suite and placed in the operating table in a supine position. Perioperative antibiotics and anesthesia was administered by the anesthesia team. The limb was prepped and draped in a standard surgical fashion, and a sterile tourniquet applied to the proximal aspect of the right upper extremity. The limb was elevated exsanguinated with Esmarch bandage and the tourniquet inflated to 250 mm of mercury for a total tourniquet time of 40 minutes. Once assured that we had a good block, a 2.0 cm longitudinal incision was made centered over the right carpal tunnel. The incision was made through the skin to the subcutaneous tissues using a #15 blade. Dissection was made down to the level of the transverse carpal ligament with care being taken to protect the palmar cutaneous nerve. Once the transverse carpal ligament was clearly visualized, a longitudinal incision was made in the transverse carpal ligament 1st using a #15 blade, then using tenotomy scissors under direct visualization. Care was taken to look for and protect the motor branch of the median nerve when seen in this area. Once satisfied with our carpal tunnel release the wound was irrigated with normal saline. Once assured that we had a good block, a 1.5 cm oblique incision was made centered over the A1 gray of the right ring finger . The incision was made through the skin to the subcutaneous tissues using a #15 blade. Careful dissection was made down to the level of the A1 gray using tenotomy scissors, with care being taken to protect the nearby neurovascular structures. A longitudinal incision was made in the A1 gray 1st using a #15 blade, then using tenotomy scissors under direct visualization. The A1 gray was noted to be thickened. Following our A1 gray release, we no longer saw any locking or catching of the digit with flexion and extension. A 6 cm gently curved but longitudinally oriented incision was made centered over the cubital tunnel of the right upper extremity. Incision was made through the skin to the subcutaneous tissues using a # 15 Blade. I then dissected down to the level of the medial epicondyle and the cubital tunnel using tenotomy scissors. Care was taken to protect the medial antebrachial cutaneous nerve. The ulnar nerve was identified just posterior to the medial intermuscular septum. The ulnar nerve was released in a proximal to distal direction using tenotomy in iris scissors while directly visualizing and protecting the ulnar nerve. Thickening and fibrosis was appreciated about the ulnar nerve as it passed through the cubital tunnel. The ulnar nerve was assessed as I passed the elbow through full flexion and extension and was found to remain stable within its groove. At this point the tourniquet was deflated and hemostasis obtained with a brief period of local pressure and bipolar electrocautery. The wounds were copiously irrigated with normal saline. For the carpal tunnel and trigger finger the skin edges were reapproximated with some 5 0 Prolene suture material. For the cubital tunnel release, The subcutaneous layer was closed with 4-0 Vicryl suture, and the skin edges were reapproximated with a running 4-0 Monocryl subcuticular closure. Steri-Strips and Mastisol were applied.. The wounds were infiltrated with some 1% lidocaine with epinephrine for postop pain control and sterile dressings were applied. The patient appears to have tolerated the procedure well and with no complications. All digits were well vascularized at the conclusion of the case.
[2024-02-05] MEDS: ondansetron HCL 4 MG/2 ML VIAL IVPUSH (10:54)
--- NOTE | 2024-02-05 16:25 | HO.POSTANES ---
Post Anesthesia Evaluation Post Anesthesia Evaluation Date of Service: 02/05/24 Vital Signs: Vital Signs Temp Pulse Resp BP Pulse Ox O2 Del Method 02/05/24 11:00 97 F 71 16 121/70 98 Room Air 02/05/24 10:45 97 F 70 18 121/70 97 Room Air 02/05/24 10:31 68 16 114/72 96 Room Air 02/05/24 10:16 74 15 120/79 97 Room Air 02/05/24 10:01 66 14 130/76 94 Room Air 02/05/24 09:46 79 14 132/80 93 Room Air 02/05/24 09:41 82 14 140/78 H 93 Room Air 02/05/24 09:36 79 16 125/75 94 Room Air 02/05/24 09:31 97 F 87 16 144/83 H 94 Room Air 02/05/24 06:32 97.9 F 62 18 126/80 98 Room Air Anesthesia: General LMA Mental Status: Awake Pain Control: Satisfactory Nausea/Vomiting: None Hydration: Adequate Anesthesia-Related Issues: No Anes. Related Issues
== END 2024-02-05 11:43 | disposition home or self-care (01) ==
PROVIDERS: PCP Internal Medicine; Visit Provider Orthopaedic Surgery
PROC: (CPT 64718; principal; 2024-02-05 07:30)
PROC: (CPT 64721; 2024-02-05 07:30)
PROC: (CPT 26055; 2024-02-05 07:30)
DX: G56.01 Carpal tunnel syndrome, right upper limb (principal); G56.21 Lesion of ulnar nerve, right upper limb; M65.341 Trigger finger, right ring finger
CPT/HCPCS: 64721; 64718; 26055; J0131; J0690; J1100; J2250; J2405; J2704; J3010

== ENCOUNTER → 2024-02-05 06:08 | Outpatient (BNV) | payer OTHER, SELFPAY | PROVIDERS: PCP Internal Medicine; Visit Provider Orthopaedic Surgery | DX: G56.21 Lesion of ulnar nerve, right upper limb (principal); G56.01 Carpal tunnel syndrome, right upper limb; M65.341 Trigger finger, right ring finger | CPT/HCPCS: 26055; 64718; 64721 ==

== ENCOUNTER 2024-02-20 10:07 | Outpatient (AMB) | payer OTHER, SELFPAY ==
--- NOTE | 2024-02-20 10:30 | A.OFFVIS_ITS ---
Intake Visit Reasons: PO RT CTR, cubital, RF trig 02/05/24 AR Intake Note: Delia is a 53 year old female who presents today post operatively S/P right Carpal Tunnel, cubital, and ring finger trigger release 02/05/24 AR. Patient reports she is doing well, states numbness and tingling has subsided. Denies any drainage from incisions. Design Checker Services: Design Checker Offered & Declined Accompanied by: Child Allergies No Known Allergies [No Known Allergies*] Allergy (Verified 02/20/24 10:31) HPI HPI PO RT CTR, cubital, RF trig 02/05/24 AR: Details: Patient is a 53-year-old female who presents for postoperative evaluation of right carpal tunnel release, cubital tunnel release, and ring finger trigger release, DOS 01/1924. The patient reports that she is doing very well, and that her numbness and tingling in her right upper extremity has completely resolved. Patient also reports that the locking and catching of the right ring finger has also resolved completely. Patient reports that she is not experiencing any pain at this time, and states that there is no drainage or other evidence of infection from her incision sites. No other acute complaints or concerns at this time. [facility] Medical History Leucocytosis Thrombocytosis Anxiety Depression Carpal tunnel syndrome Multinodular thyroid Vitamin D deficiency Hypothyroidism Surgical History History of bone marrow biopsy History of carpal tunnel surgery History of lumpectomy of right breast History of right breast biopsy (11/2017) History of left inguinal hernia repair Hx of tubal ligation Hx of shoulder surgery (09/2014) Family History Father HTN (hypertension) Mother HTN (hypertension) Social History Household Members: Children Housing: Apartment Are you a primary palliative care nurse practitioner to a significant other at home: Yes Do you presently have visiting nurse or other home services: No Alcohol intake: never Patient Tobacco Use Status: Current everyday Tobacco user Tobacco use type: Cigarette Cigarettes Per Day: 8 Years Smoked: 20 Second Hand Smoke Exposure: No service: No Current occupational status: unemployed Current occupation: rt handed Physical Exam Extrem Other: Patient is alert, oriented, and in no acute distress. Neuro: normal sensation of the tips of all digits of the right hand at this time Vascular: Cap refill brisk Pain: No pain to palpation about the incision sites Range of motion of the right elbow, wrist, hand painless ROM: Patient is able to make a closed fist and extend the digits of the right hand fully without difficulty Patient is able to flex and extend the right elbow fully without difficulty Skin: Well-healing incision sites noted on the volar wrist, over the A1 gray of the right ring finger, and over the cubital tunnel of the right elbow Well approximated, no evidence of dehiscence No evidence of infection or drainage noted. General: No ecchymosis, erythema, or evidence of infection. Psych: Appears grossly normal Affect normal Attitude cooperative Assessment & Plan Assessment & Plan (1) Trigger finger, right ring finger: Code(s): M65.341 - Trigger finger, right ring finger Category: Medical (2) Cubital tunnel syndrome on right: Code(s): G56.21 - Lesion of ulnar nerve, right upper limb Category: Medical (3) Carpal tunnel syndrome of right wrist: Code(s): G56.01 - Carpal tunnel syndrome, right upper limb Category: Medical Plan 1. Cubital tunnel syndrome, right, status post cubital tunnel release 2. Carpal tunnel syndrome, right, status post carpal tunnel release 3. Trigger finger, right ring finger, status post trigger finger release DOS 02/05/24 Patient appears to be recovering well postoperatively Patient is educated about the typical recovery course Patient is informed that, due to her good range of motion at today's [facility] hospital ent, she will not require any occupational hand therapy Patient is also informed that we will be able to gradually ramp up to normal activity further 2 weeks Patient is amenable to this plan Patient will follow-up as needed with any acute concerns 4. Cubital tunnel release, left , status post cubital tunnel release 5. Carpal tunnel release, left , status post carpal tunnel release Patient has recovered well from these procedures Patient states that she is still not experiencing any symptoms on the left side Patient will follow-up as needed with any acute concerns Coding Level of Care Code Global (82208) Diagnoses Trigger finger, right ring finger M65.341 Cubital tunnel syndrome on right G56.21 Carpal tunnel syndrome of right wrist G56.01
== END 2024-02-20 11:17 | disposition home or self-care (01) ==
PROVIDERS: PCP Student in an Organized Health Care Education/Training Program
DX: M65.341 Trigger finger, right ring finger (principal); G56.21 Lesion of ulnar nerve, right upper limb; G56.01 Carpal tunnel syndrome, right upper limb
CPT/HCPCS: 99024

== ENCOUNTER → 2024-02-20 10:07 | Outpatient (BNVA) | payer OTHER, SELFPAY | PROVIDERS: PCP Student in an Organized Health Care Education/Training Program | DX: Z48.811 Encounter for surgical aftercare following surgery on the nervous system (principal); Z86.69 Personal history of other diseases of the nervous system and sense organs; Z87.39 Personal history of other diseases of the musculoskeletal system and connective tissue | CPT/HCPCS: 99212 ==

== ENCOUNTER 2024-04-17 13:02 | Outpatient (AMB) | payer OTHER, SELFPAY ==
[2024-04-17 13:08] VITALS: BP 122/78; BMI 31.4
--- NOTE | 2024-04-17 13:08 | MHC.OFFVIS ---
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 Complaining of vulvovaginal irritation/itching over the last few days no associated with foul odor or discharge. Last Pap/HPV was negative in 03/11 Last Mammogram was BI-RADS 1 in 07/12 Last Colonoscopy was in 09/09, the recommendation was to repeat in 10 years [facility] Medical History Leucocytosis Thrombocytosis Anxiety Depression Carpal tunnel syndrome Multinodular thyroid Vitamin D deficiency Hypothyroidism Surgical History History of bone marrow biopsy History of carpal tunnel surgery History of lumpectomy of right breast History of right breast biopsy (11/2017) History of left inguinal hernia repair Hx of tubal ligation Hx of shoulder surgery (09/2014) Family History Father HTN (hypertension) Mother HTN (hypertension) Social History Household Members: Children Housing: Apartment Are you a primary disabilities caregiver to a significant other at home: Yes Do you presently have visiting nurse or other home services: No Alcohol intake: never Patient Tobacco Use Status: Current everyday Tobacco user Tobacco use type: Cigarette Cigarettes Per Day: 8 Years Smoked: 20 Second Hand Smoke Exposure: No service: No Current occupational status: unemployed Current occupation: rt handed Female Reproductive History Menstrual control method: none Date of last pap smear: 03/02/23 History of abnormal pap smear: No History of STI: No Date of Mammogram: 07/05/23 History of abnormal mammogram: No Review of Systems Const All systems reviewed & are unremarkable except as noted in HPI and below Card Reports as per HPI Resp Reports as per HPI GI Reports as per HPI and Reports no additional complaints Reports as per HPI Physical Exam Vital Signs: Last Vital Signs BP 122/78 04/17/24 13:08 BMI result Body Mass Index 31.4 Const General: cooperative, healthy appearing and comfortable Chest Chest palpation & inspection: normal inspection of the chest and normal palpation of entire chest wall Breast/axilla inspection: normal inspection of the breasts and normal inspection of the axillae Breast/axilla palpation: normal palpation of the breasts, normal palpation of the axillae and no axillary lymphadenopathy Resp Effort & Inspection: normal respiratory effort Auscultation: clear to auscultation bilaterally Percussion: percussion normal Cardio Palpation: normal PMI Rate: regular rate Rhythm: regular rhythm Heart sounds: no murmurs and no rubs Peripheral pulses: Peripheral pulses 2+ throughout GI Inspection: Yes normal to inspection Palpation (GI): Soft to palpation, nontender, no guarding, not rigid and No hepatosplenomegaly present Percussion: Yes normal to percussion Auscultation: normal bowel sounds Rectal Exam - Female: deferred General: Yes bladder normal to palpation External Female Exam: No lesion Speculum Exam - Vagina: normal appearance of the vagina, normal palpation, normal vaginal discharge and not erythematous Speculum Exam - Cervix: normal appearance of the cervix and normal palpation Bimanual exam- vagina & uterus: normal bimanual exam, normal palpation, uterine size normal, bladder normal to palpation, consistency normal and normal palpation Bimanual Exam- Adnexa, other: normal adnexae, no masses and no tenderness Assessment & Plan Assessment & Plan (1) Well woman exam: Code(s): Z01.419 - Encounter for gynecological examination (general) (routine) without abnormal findings Category: Medical Plan: Co testing not indicated this year. Counseled the patient about the recommended dietary allowance of 1200 mg of Calcium & 600 IU of vitamin D. Instructions given the patient to schedule next screening Mammogram in 07/13. The patient was instructed to perform monthly self-breast exams and schedule annual exam in a year. All questions answered and the patient verbalized understanding. (2) Vulvovaginitis: Code(s): N76.0 - Acute vaginitis Category: Medical Plan: GC/CT, Bacterial Vaginosis panel taken, Terazol 0.8% q.h.s. for 3 days was sent to the patient's pharmacy. The patient was instructed to call if symptoms don't improve in 48 hours. Medications: New terconazole 0.8% 1 appful vaginal BEDTIME 3 days 20 grams 0RF Coding Level of Care Code Est Pt Level 3 (19534) Est Pt Prev Care 40-64y(49945) Diagnoses Well woman exam Z01.419 Vulvovaginitis N76.0
== END 2024-04-17 13:37 | disposition home or self-care (01) ==
LOC: HO.HWS 13:02
PROVIDERS: PCP Internal Medicine; Visit Provider Obstetrics & Gynecology
DX: Z01.419 Encounter for gynecological examination (general) (routine) without abnormal findings (principal); N76.0 Acute vaginitis
CPT/HCPCS: 99213; 99396

== ENCOUNTER 2024-04-17 13:02 | Outpatient (REF) | payer OTHER, SELFPAY ==
[2024-04-18 03:15] LABS: CT PCR NOT DETECTED (Not Detect.); NG PCR NOT DETECTED (Not Detect.)
[2024-04-18 11:13] LABS: Bacterial Vaginosis PCR NEGATIVE (Negative); Candida Group PCR NOT DETECTED (Not Detect); Candida glab krusei PCR NOT DETECTED (Not Detect); Trichomonas vaginalis PCR NOT DETECTED (Not Detect)
== END 2024-04-17 13:03 | disposition home or self-care (01) ==
LOC: HO.LNP 13:02
PROVIDERS: PCP Internal Medicine; Visit Provider Obstetrics & Gynecology
DX: Z01.419 Encounter for gynecological examination (general) (routine) without abnormal findings (principal); N76.0 Acute vaginitis
CPT/HCPCS: 0352U; 87491; 87591; 99212; 99396

== ENCOUNTER → 2024-07-10 09:45 | Outpatient (BNV) | payer OTHER, SELFPAY | PROVIDERS: PCP Student in an Organized Health Care Education/Training Program; Visit Provider Internal Medicine | DX: Z12.31 Encounter for screening mammogram for malignant neoplasm of breast (principal) | CPT/HCPCS: 77063; 77067 ==

== ENCOUNTER 2024-07-10 09:50 | Outpatient (REF) | payer OTHER, SELFPAY | END 2024-07-10 09:51 | disposition home or self-care (01) | LOC: HO.MAMMO 09:50 | PROVIDERS: PCP Student in an Organized Health Care Education/Training Program; Visit Provider Student in an Organized Health Care Education/Training Program | DX: Z12.31 Encounter for screening mammogram for malignant neoplasm of breast (principal) | CPT/HCPCS: 77063; 77067 ==

== ENCOUNTER 2024-09-11 13:47 | Outpatient (REF) | payer OTHER, SELFPAY ==
[2024-09-11 14:50] LABS: CDiff Gene PCR POSITIVE (Negative)
[2024-09-11 15:32] LABS: CDiff Toxin Negative (Negative)
[2024-09-11 15:33] LABS: CDIFF Internal ctrl Dots and bkg OK (V)
[2024-09-11 15:44] LABS: Adenovirus F 40/41 Not Detected (Not Detect.); Astrovirus Not Detected (Not Detect.); Campylobacter Not Detected (Not Detect.); Cryptosporidium Not Detected (Not Detect.); Cyclospora cayetanensis Not Detected (Not Detect.); E. coli EAEC Not Detected (Not Detect.); E. coli EPEC Not Detected (Not Detect.); E. coli ETEC Not Detected (Not Detect.); E. coli STEC Not Detected (Not Detect.); Entamoeba histolytica Not Detected (Not Detect.); Giardia lamblia Not Detected (Not Detect.); Norovirus GI/GII Not Detected (Not Detect.); Plesiomonas shigelloides Not Detected (Not Detect.); Rotavirus A Not Detected (Not Detect.); Salmonella Not Detected (Not Detect.); Sapovirus Not Detected (Not Detect.); Shigella sp./EIEC Not Detected (Not Detect.); Vibrio Not Detected (Not Detect.); Vibrio Cholerae Not Detected (Not Detect.); Yersinia enterocolitica Not Detected (Not Detect.)
== END 2024-09-11 13:48 | disposition home or self-care (01) ==
LOC: HO.HHCLNP 13:47
PROVIDERS: Visit Provider Emergency Medicine
DX: R19.7 Diarrhea, unspecified (principal)
CPT/HCPCS: 87177; 87209; 87324; 87338; 87493; 87507

== ENCOUNTER 2024-10-28 13:28 | Outpatient (AMB) | payer OTHER, SELFPAY ==
--- OUTSIDE RECORDS SUMMARY | 2024-10-28 13:48 | XMS_ITS | Data Portability ---
Author Organization [employer] [place] [facility] [employer] Address [address] [place] [id number] Care Team Providers Care Social Services Counselor Name Role Phone [facility] Referring Provider [facility] Referring Provider Assessment Encounter Date Assessment Date Assessment LastModified by Organization Details LastModified Time 01/04/2022 01/04/2022 I have reviewed and agree with the assessment and plan as documented by the wrist liner. I provided real-time medical direction for this encounter and was immediately available to provide additional phone-based assistance as needed. Patient with mild sore throat, AVSS And well appearing per report with normal phonation, no stridor, handling secretions. Neg rapid COVID and strep testing Recommended symptomatic management and close follow up with care team, abeba Not available 01/17/2022 10:36:27 Plan of Treatment Reminders Order Date Submit Date Provider Last Modified By Organization Details Last Modified Time Details Appointments None record ed. Lab None record ed. Referral None record ed. Procedures None record ed. Surgeries None record ed. Imaging None record ed. Medication Orders None record ed. Patient TargetsNo targets recorded. Patient InstructionsNo instructions recorded. Reason for Referral None Reported. Medical Equipment None Reported. Medications Name Sig Start Date Stop Date Status Note LastModified by Organization Details LastModified Time nicotine 14 mg/24 hr daily transdermal patch APPLY 1 PATCH TOPICALLY TO THE SKIN DAILY IN THE MORNING THEN REMOVE AT BEDTIME DIRECTED. DO NOT SMOKE WHILE USING PATCH active Not Available Not Available No t Available nicotine (polacrilex) 2 mg gum CHEW 1 PIECE OF GUM EVERY 2 HOURS NEEDED active Not Available Not Available No t Available cyanocobalami n (vit B-12) 1,000 mcg tablet TAKE 1 TABLET BY MOUTH EVERY DAY active Not Available Not Available No t Available chlorthalidon e 25 mg tablet TAKE 1 TABLET BY MOUTH EVERY DAY active Not Available Not Available No t Available amlodipine 5 mg tablet TAKE 1 TABLET BY MOUTH EVERY DAY active Not Available Not Available No t Available levothyroxine 25 mcg tablet TAKE 1 TABLET BY MOUTH EVERY DAY IN THE MORNING active Not Available Not Available No t Available oxycodone-jerry taminophen 5 mg-325 mg tablet TAKE 1 TO 2 TABLETS BY MOUTH EVERY 6 HOURS NEEDED FOR PAIN active Not Available Not Available No t Available nicotine 21 mg/24 hr daily transdermal patch APPLY 1 PATCH TOPICALLY TO THE SKIN DAILY IN THE MORNING THEN REMOVE AT BEDTIME DIRECTED. DO NOT SMOKE WHILE USING PATCH active Not Available Not Available No t Available ibuprofen 600 mg tablet TAKE 1 TABLET BY MOUTH THREE TIMES A DAY NEEDED FOR PAIN active Not Available Not Available No t Available fluticasone propionate 50 mcg/actuation nasal spray,suspens ion USE 2 SPRAYS IN EACH NOSTRIL EVERY DAY active Not Available Not Available No t Available amoxicillin 875 mg-potassium clavulanate 125 mg tablet TAKE 1 TABLET BY MOUTH TWICE A DAY active Not Available Not Available No t Available cyclobenzapri ne 5 mg tablet TAKE 1 TABLET BY MOUTH THREE TIMES DAILY NEEDED active Not Available Not Available No t Available mirtazapine 7.5 mg tablet TAKE 1 TABLET BY MOUTH AT BEDTIME active Not Available Not Available No t Available duloxetine 60 mg capsule,delay ed release TAKE 1 CAPSULE BY MOUTH ONCE DAILY active Not Available Not Available No t Available hydrochloroth iazide 12.5 mg tablet TAKE 1 TABLET BY MOUTH EVERY DAY active Not Available Not Available No t Available cholecalcifer ol (vitamin D3) 50 mcg (2,000 unit) capsule TAKE 1 CAPSULE BY MOUTH EVERY DAY active Not Available Not Available No t Available cholecalcifer ol (vitamin D3) 50 mcg (2,000 unit) tablet TAKE 1 TABLET BY MOUTH EVERY DAY active Not Available Not Available No t Available Vitals Date Recorded Body temperature Heart rate Respiratory rate Oxygen saturation Oxygen saturation in Arterial blood by Pulse oximetry Systolic blood pressure Diastolic blood pressure Provider Name and Address Organization Details Last Updated DateTime 2 98.8 [degF] 70 /min 16 /min 98 % 98 % 120 mm[Hg] 70 mm[Hg] Not Available Agency [employer] - [facility] 2 16:00:42 Social History None recorded. Functional Status None recorded. Mental Status None recorded. Family History Nothing Reported. Medical History No medical history recorded. Gynecological HistoryNo gynecological history recorded. Obstetrics History GPAL:G 0 P 0 0 0 0 Past Encounters Encounter ID Performer Location Encounter Start Date Encounter Closed Date Diagnosis/Indication Diagnosis SNOMED-CT Code Diagnosis ICD10 Code Diagnosis Note [id number] Mahesh Eden MD [address] [id number] 01/04/2022 15:45:13 02/22/2022 12:23:21 Sore throat [id number] J02.9 Health Concerns Section Related Observation LastModified by Organization Detai ls LastModified Time None Recorded Concern Status LastModified by Organization Details LastModified Time None Recorded Advance Directives Directive None Recorded Payers Insurance Date Sequence Insurance Name Policy Number Policy Matute Covered Member ID Matute Member ID Guarantor Name 08/23/2023 1 [facility] - DOS PRIOR TO 2022 - DUAL ELIGIBLE (MEDICARE REPLACEMENT/ADV ANTAGE - HMO) Delia Perdomo [id number] Delia Perdomo 08/23/2023 1 [facility] - DOS ON OR AFTER 2022 - DUAL ELIGIBLE - CORRECTION OPTIONS AND ONE CARE (MEDICARE REPLACEMENT/ADV ANTAGE - HMO) Delia Perdomo [id number] Deliagretchen Perdomo Notes Date Note Type Note Provider Name and Address Organization Details Recorded Time 01/04/2022 text/html HPI: Patient with sore throat and inflammation in throat . Taking fluids but difficulty with solids. Came to [facility] but was referred to come at a later time. .................. .................. .................. .................. .................. .................. .................. ............... CRC Nursing Assessment: Comments: CRC RN did not require any additional information to process this visit. .................. .................. .................. .................. .................. .................. .................. ............... Neurology Manager Note: eval of sore throat and swollen glands. pt was at urgent care and got sent home with negative covid test. on my arrival found pt at home C/A/Ox4, warm dry, only complaint was sore throat. denied SOB/CP, denied cough, denied fever/chills. stated this started yesterday. all test were negative, but I explained that she should try again tomorrow as sometimes it takes a few days for rapid tests to show any positive results. [facility] agreed with Motrin and tylenol for pain and to call back PCP .................. .................. .................. .................. .................. .................. .................. ............... Disposition: Fulfilled Mahesh Eden MD [address] [facility],[address], [place], [phone], [facility] 01/17/2022 10:36:38 OBGyn Episode No OBEpisode recorded.
--- OUTSIDE RECORDS SUMMARY | 2024-10-28 13:48 | XMS_ITS | Encounter Summary ---
Author Organization [employer] Address [address] [facility] [address] [place] [address] Care Team Providers Care Laboratory Miller Name Role Phone Kendra Blackburn MD Primary Care Pro vider Reason for Visit * Reason Onset Date Comments New Med Request 12/29/2023 Encounter Details Date Type Department Care Team ([facility] Contact Info) Description 12/29/2023 Telephone [facility] MEDICINE [address] [place] [address] Kendra Blackburn MD [address] [place] [address] New Med Request Social History Tobacco Use Types Packs/Day Years Used Date Smoking Tobacco: Some Days Cigarettes Smokeless Tobacco: Never Comments:Smoking since 26 y until now---smoking 6-7 cigarettes a day ,tried to stop w chantix ,gum and patches --smoking now x 25 years ---PQT a year alex 8.75 Alcohol Use Standard Drinks/Week Comments Yes 0 (1 standard drink = 0.6 oz pur e alcohol) social Depression Answer Date Recorded Patient Health Questionnaire-9 Score 5 11/22/2022 Housing Stability Answer Date Recorded What is your housing situation today? I have dirk august 12/15/[address] you li ve. Do you have problems with any of the following? None of the above 12/15/2023 Food Insecurity Answer Date Recorded Within the past 12 months, y ou worried that your food would run out before you got money to buy more: Never True 12/15/2023 Within the past 12 months,th e food you bought just didn't last and you didn't have enough money to get more: Never True Transportation Answer Date Recorded In the past 12 months, has l ack of transportation kept you from medical appts, meetings, work or from getting things needed for daily living? No 12/15/2023 Utilities Answer Date Recorded In the past 12 months, has t he electric, gas, oil or water company threatened to shut off services in your home? I am not sure 12/15/2023 Depression Answer Date Recorded Patient Health Questionnaire-2 Score 4 12/15/2023 Comments No Sex and Gender Information Value Date Recorded Sex Assigned at Female 04/18/2022 10:19 AM EDT Legal Sex Female 10:19 AM EDT Gender Identity Female 04/18/2022 10:19 AM EDT Sexual Orientation Straight 04/18/2022 10 :19 AM EDT documented as of this encounter Miscellaneous Notes * Telephone Encounter - Racquel Reynoso - 12/29/2023 11:46 AM EDT Tc from pt requesting levothyroxine (Synthroid, Levoxyl) 25 MCG tablet. Medication was prescribed by specialist however pt was informed don't need to continue on treatmentwith them and she can request medication on PCP office. documented in this encounter Plan of Treatment Not on file documented as of this encounter Goals Goal Patient Goal Type Associated Problems Recent Progress Patient-Stated? Author Smoking cessation General No Elis Chino, PharmD documented as of this encounter Visit Diagnoses Not on filedocumented in this encounter Additional Health Concerns Assessment Noted Time PHQ-9 Depression Total Score: 5 11/23/19 10:30 AM EDT documented as of this encounter Care Teams Laboratory Miller Relationship Specialty Start Date End Date Kendra Blackburn MD [address] [place] [id number] PCP - General Internal Medicine 10/27/22 documented as of this encounter
--- OUTSIDE RECORDS SUMMARY | 2024-10-28 13:48 | XMS_ITS | Encounter Summary ---
Author Organization [employer] Address [address] [place] [address] Care Team Providers Care City Driver Name Role Phone Kendra Blackburn MD Primary Care Pro vider Reason for Visit * Reason Onset Date Comments re sent script 12/22/2023 Encounter Details Date Type Department Care Team ([facility] Contact Info) Description 12/22/[address] [facility] MEDICINE [address] [place] [address] Kendra Blackburn MD [address] [place] [address] re sent script Social History Tobacco Use Types Packs/Day Years [...] encounter Miscellaneous Notes * Telephone Encounter - Hyun Jacinto RN - 12/27/2023 11:09 AM EDT TC placed to pt to inform of PCP advise to confer with the pharmacy on how to take proper dosage ofVarenicline Tartrate Starter Pack. Pt was calling in confused as to which dose to take, the 0.5 mg or 1 mg dose. Pt agreeable to the plan and will bring the box to the [facility] pharmacy for further instruction. * Telephone Encounter - Heber Marinelli - 12/26/2023 3:28 PM EDT Tc from patient returning call in regards to the message below * Telephone Encounter - Hyun Jacinto RN - 12/26/2023 2:37 PM EDT TC placed to pt and LVM to call back the office * Telephone Encounter - Ana Rosa Cuadra LPN - 12/22/2023 1:53 PM EDT Script sent on 12/15/23 class is print medication pended again. Next appointment 02/09/24. * Telephone Encounter - Sintia Abbasi - 12/22/2023 1:33 PM EDT TC from pt calling requesting to see if possible to re send script of Varenicline 0.5mg. Pt stated and information writer verify [facility] Pharmacy only received script of Varenicline 1mg twice no 0.5mg. PCP DR. Major documented in this encounter Plan of Treatment [...] documented as of this encounter Care Teams City Driver Relationship Specialty Start Date End Date Kendra Blackburn MD [address] [place] [id number] PCP - General Internal Medicine 10/27/22 documented as of this encounter
--- OUTSIDE RECORDS SUMMARY | 2024-10-28 13:48 | XMS_ITS | Encounter Summary ---
Author Organization [employer] Address [address] [place] [address] Care Team Providers Care Police Sergeant Name Role Phone Kendra Blackburn MD Primary Care Pro vider Encounter Details Date Type Department Care Team (Late st Contact Info) Description 11/15/2023 Orders Only [facility] MEDICINE [address] [place] [address] ProviderJessica MD Social History Tobacco Use Types Packs/Day Years [...] is your housing situation today? I have dikr august 04/03/[address] you li ve. Do you have problems with any of the following? None of the above 04/03/2023 Food Insecurity Answer Date Recorded Within the past 12 months, y ou worried that your food would run out before you got money to buy more: Never True 04/03/2023 Within the past 12 months,th e food you bought just didn't last and you didn't have enough money to get more: Never True Transportation Answer Date Recorded In the past 12 months, has l ack of transportation kept you from medical appts, meetings, work or from getting things needed for daily living? No 04/03/2023 Utilities Answer Date Recorded In the past 12 months, has t he electric, gas, oil or water company threatened to shut off services in your home? No 04/03/2023 Depression Answer Date Recorded Patient Health Questionnaire-2 Score 1 11/22/2022 Comments No Sex and Gender Information Value Date Recorded Sex Assigned at Female 04/18/2022 10:19 AM EDT Legal Sex Female 10:19 AM EDT Gender Identity Female 04/18/2022 10:19 AM EDT Sexual Orientation Straight 04/18/2022 10 :19 AM EDT documented as of this encounter Plan of Treatment Not on file documented as of this encounter Goals Goal Patient Goal Type Associated Problems Recent Progress Patient-Stated? Author Smoking cessation General No Elis Chino, ZoilaD documented as of this encounter Procedures Procedure Name Priority Date/Time Associated Diagnosis Comments HM COLONOSCOPY Routine 08/21/2023 11:53 AM EST documented in this encounter Results * Hm Colonoscopy (08/21/2023 11:53 AM EST) Historical Provider HEALTH MAINTENANCE Final Result documented in this encounter Visit Diagnoses Not on filedocumented in this encounter Additional Health Concerns Assessment Noted Time PHQ-9 Depression Total Score: 5 11/23/19 23 10:30 AM EDT documented as of this encounter Care Teams Police Sergeant Relationship Specialty Start Date End Date Kendra Blackburn MD [address] [place] [id number] PCP - General Internal Medicine 10/27/22 documented as of this encounter
--- OUTSIDE RECORDS SUMMARY | 2024-10-28 13:48 | XMS_ITS | Clinical Summary ---
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 OTC Active metoprolol succinate XL (Toprol-XL) 50 MG 24 hr tablet Take 50 mg by mouth in the morning. 3 Active hydrocortisone (Anusol-HC) 2.5 % rectal cream Insert into the rectum 2 times daily. 28 g 3 Active famotidine (Pepcid) 20 MG tablet TAKE 1 TABLET BY MOUTH AT BEDTIME NEEDED HEARTBURN 30 tablet 2 4 Active nicotine polacrilex (Nicotine Mini) 4 MG lozenge Dissolve 1 lozenge (4 mg) in the mouth every 2 (two) hours if needed for smoking cessation for up to 216 doses. MUST BE MINI Lozenges. 108 lozenge 1 4 Active varenicline (Chantix Continuing ) 1 MG tablet Take 1 tablet (1 mg) by mouth 2 times daily. Take with full glass of water. 60 tablet 2 4 Active Varenicline Tartrate, Starter, (Chantix Starting ) 0.5 MG X 11 & 1 MG X 42 tablet therapy pack Take 1 tablet by mouth Once per day. Days 1-3: 0.5 mg PO qDay Days 4-7: 0.5 mg PO BID Day 8 to end of treatment: 1 mg PO BID 1 each 4 Active DULoxetine (Cymbalta) [address] capsule Take 1 capsule (60 mg) by mouth Once per day. Do not crush or chew. 30 capsule 4 Active mirtazapine (Remeron) 7.5 MG tablet Take 1 tablet (7.5 mg) by mouth at bedtime. 30 tablet 4 Active levothyroxine (Synthroid, Levoxyl) 25 MCG tablet TAKE 1 TABLET BY MOUTH EVERY MORNING 90 tablet 5 Active amLODIPine (Norvasc) 10 MG tabletIndications :Primary hypertension TAKE 1 TABLET BY MOUTH EVERY MORNING 90 tablet 5 Active Aspirin Low Dose 81 MG chewable tablet TAKE 1 TABLET BY MOUTH EVERY MORNING (CHEW) 90 tablet 1 5 Active meloxicam (Mobic) 7.5 MG tablet TAKE 1 TABLET BY MOUTH EVERY MORNING 30 tablet 1 5 Active Active Problems Problem Noted Date Diagnosed Date C. difficile enteritis 09/11/2024 Neuropathy 08/06/2023 CTS (carpal tunnel syndrome) 04/11/2023 Ascending aorta dilation 04/11/2023 Chronic pain 04/11/2023 Helicobacter positive gastritis 02/09/2023 Assessment & Plan (03/08/2023 6:52 PM EDT): Reports chronic bloating and epigastric pain on PPis at least 3 times a week Denies previous EGD or h pylori test per pt -UBT -H pylori 11/2022 s/p tx w quadriple macrolide based tx x 14 days on 01/2023 w resolution of epigastric pain -will do H pylori CATRINA in 2 months Assessment & Plan (02/09/2023 5:17 PM EDT): Reports chronic bloating and epigastric pain on PPis at least 3 times a week Denies previous EGD or h pylori test per pt -UBT -H pylori 11/2022 -will start quadriple macrolide based tx -explained possible SE of meds -gave written info of how to take meds -advised to avoid ETOH while taking ATBs -will repeat test in 3 months -Explained to hold on famotidine to take only prn Tobacco abuse 11/22/2022 Overview (03/13/2023): Presents for initial visit. Symptoms include irritability. Preferred tobacco types include cigarettes. Her urge triggers include stress. Her first smoke is from 6 to 8 AM. She smokes < 1/2 a pack of cigarettes per day. She started smoking when she was >18 years old. Past treatments include nicotine gum and nicotine patch. The treatment provided minimal relief. Compliance with prior treatments has been variable. Delia is ready to quit. Delia has tried to quit 2 times. There is no history of alcohol abuse and drug use. States that 2mg lozenge doesn't reduce urge to smoke. Assessment & Plan (03/13/2023 1:26 PM EDT): - Change to 4mg Lozenges to see if improvment Assessment & Plan (03/08/2023 6:55 PM EDT): Smoking since 26 y old until now---smoking 5-6 cigarettes a day ,tried to stop w chantix ,gum and patches with some SE --smoking now x 25 years ---PQT a year alex 8.75 PFT 02/2022 : normal -advised to stop smoking -continue nicotine lozenges -( Bupropion SR - not a candidate due to risk of interactions with other antidepressants) -may need to consider chantinx -pt informed me at previous that tried w SE -but from pharmacy note pt denied using-will need to eval option if not stopping w currents aids -continue tobacco cessation program--has apt 03/13/2023 -continue to monitor Assessment & Plan (02/09/2023 5:31 PM EDT): Smoking since 26 y old until now---smoking 3 from 6-7 cigarettes a day ,tried to stop w chantix ,gum and patches with some SE --smoking now x 25 years ---PQT a year alex 8.75 PFT 02/2022 : normal -advised to stop smoking and congratulated her with decreasing amount -continue nicotine lozenges -( Bupropion SR - not a candidate due to risk of interactions with other antidepressants) -may need to consider chantinx -pt informed me at previous that tried w SE -but from pharmacy note pt denied using-will need to eval option if not stopping w currents aids -continue tobacco cessation program ?? -continue to monitor Assessment & Plan (11/22/2022 1:55 PM EDT): Smoking since 26 y old until now---smoking 6-7 cigarettes a day ,tried to stop w chantix ,gum and patches with some SE --smoking now x 25 years ---PQT a year alex 8.75 PFT 02/2022 : normal -advised to stop smoking -pt interested to start smoking cessation program -referred today Hypertension 11/22/2022 Assessment & Plan (03/08/2023 6:51 PM EDT): BP here borderline high diastolic -EKG 09/2021-Record : [place] 11/2022 Microalb neg -opthalmo: 05/2022 Neg per pt Reports since taking chlorthalidone 25 mg daily w dizziness,dry mouth and nausea -will stop chlorthalidone due to SE -contionue amlodipine but increase dose to 10 mg from 5 mg daily -continue metoprolol 50 mg daily -will hold on resuming HDCTZ that took in the past w no SE -monitor BP in 4 weeks ,if BP still elevated will resume HDCTZ 12.5 mg daily -advised to be complaint w meds and to bring home BP readings at next visit in 4 weeks Assessment & Plan (02/09/2023 5:22 PM EDT): BP here elevated today -OFF HDCTZ 12.5 mg and amlodipine 5 mg for 2 months per pt -EKG 09/2021-Record : [place] 11/2022 Microalb neg -resume amlodipine 5 mg daily -continue metoprolol 50 mg daily recently increase dose for palpitations by major gifts director -will hold on resuming HDCTZ for now to eval if can control BP with 2 meds -advised to be complaint w meds and to bring home BP readings at next visit in 4 weeks -will check manually BP at next visit in 4 weeks ,if elevated readings will resume HDCTZ or increase amlodipine dose -opthalmo: 05/2022 Neg per pt Assessment & Plan (11/22/2022 1:45 PM EDT): BP here slight elevated diastolic took BP meds this am -EKG 09/2021-Record : [place] -on amlodipine 5 mg and HDCTZ 12.5 mg daily -advised to be complaint w meds and to bring home BP readings at next visit -will check manually BP at next visit -opthalmo: 05/2022 Neg per pt -check microalb and chem today Health care maintenance 11/22/2022 Overview (03/13/2023): Interested in starting medboxes. Brings in medications today - Omeprazole 20mg daily (was taking BID for treatment of hpylori but was never switched back to 20mg daily after completion of treatment) - takes in morning - Metoprolol XL 50 mg daily + Amlodipine 10 mg daily - takes in morning - Levothyroxine 25mcg daily - takes in morning (takes with omeprazole and has been for lifetime but TSH/T4 is stable) - Aspirin 81 mg daily (OTC) - Duloxetine 60mg daily but is not taking due to SE of lethargy; try to switch to HS to see if able to take daily. - Mirtazapine Assessment & Plan (03/13/2023 2:23 PM EDT): - Plan to start medboxes pending medication changes as listed below: Requesting the New RXs 1. aspirin 81mg daily (Pended) Requesting RX changes for the followin. Omeprazole 20mg change from BID to Once daily Requesting to STOP the followin. vitamin B12 as labs drawn in January show elevated B12 levels - 1 month follow-up to be scheduled after medbox start - Patient requested Vitamin D as well; but labs are WNL Assessment & Plan (03/08/2023 7:03 PM EDT): -T-spot 01/2023 Neg -menopause: will check at next apt -pap smear 02/2023 ( done here w Luis Valenzuela)-Pd to get report -MM 06/2022: Breast extremely dense,punctuate round calcifications in both breast ,there is 0.7 cm asymmetric density inferior to left nipple -BIRADS 0 -rec spot left MM and targeted US-Dx left MM and Right US 06/2022: BIRADS 1-To have annual screening -colonoscopy: never -referred already-states has apt x 04/2023 -vaccines: s/p covid x3 + Bivalentx1 , tdap 2021, hepAx1,hepBx3-immune, - px already to px for shingrix vaccine ,will offer p20 at next apt for tobacco use( not available at clinic today) ,flu vaccine today -referred pt to [facility] program to start next week ------- -11/2022 AEC Mild elevated at 544-to repeat labs w her Hem at end of this month -advised pt to bring CBC lab result at next apt -01/2023 Noted elevated vit B12 -pt was taking before vitamin -not stopped -pt request to have ch/gn in urine -states her partner told her that had urine infection and pt would like to make sure is not those infections,she denies any symptoms,recent STIs done in 11/2022 were all neg--referred x urine GC/Cl today -------- -MRI brain w/o contrast 2019: No acute intracranial findings.- Mild T2 signal changes within the bifrontal white matter are nonspecific.- There is a 2.5 cm retention cyst within the right maxillary sinus.--denies any associated symptoms Assessment & Plan (02/09/2023 5:20 PM EDT): -pap smear 3 y ago normal per pt -not able to get records-referred to pt here -MM 06/2022: Breast extremely dense,punctuate round calcifications in both breast ,there is 0.7 cm asymmetric density inferior to left nipple -BIRADS 0 -rec spot left MM and targeted US-Dx left MM and Right US 06/2022: BIRADS 1-To have annual screening -colonoscopy: never -referred already-gave today info for pt to call for apt -vaccines: s/p covid x3 + Bivalentx1 , tdap 2021, hepAx1,hepBx3-immune, - px today shingrix vaccine -referred pt to [facility] program today ------- -11/2022 AEC Mild elevated at 544-to repeat in 3 mo -------- -MRI brain w/o contrast 2019: No acute intracranial findings.- Mild T2 signal changes within the bifrontal white matter are nonspecific.- There is a 2.5 cm retention cyst within the right maxillary sinus.--will f w pt if any clinical symptoms from it Assessment & Plan (11/22/2022 2:04 PM EDT): -will check w pt if in menopause at next apt -pap smear 3 y ago normal per pt -will try to get record-requested already to [facility] -MM 06/2022 Neg per pt -will try to get record-requested already to [facility]--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 To have annual MM -colonoscopy: never -referred today -vaccines: s/p covid x3 + Bivalent , tdap 2021, hepAx1,hepBx3, -will offer zoster vaccine at next visit -labs x annual exam today in fasting -MRI brain w/o contrast 2019: No acute intracranial findings.- Mild T2 signal changes within the bifrontal white matter are nonspecific.- There is a 2.5 cm retention cyst within the right maxillary sinus.--will f w pt if any clinical symptoms from it Thrombocytosis 11/22/2022 Assessment & Plan (03/08/2023 6:54 PM EDT): Pt w Thrombocytosis and neutrophilic leukocytosis -From records from hematology: bcr/ABL mutation, JAK2 mutation including Exon 12/13, negative CALR and MPL mutations. CT BM bx 03/2022: Shows normo cellular marrow with maturing trilineage hematopoiesis , flow cytometry is normal ,cytogenetics normal female karyotype-- 11/2022 platelets were 686 and WBC wnl at 8.5 By Hem leukocytosis and thrombocytosis possible to be reactive in nature 01/2023 T-spot neg, ESR ,CRP neg, iron panel wnl -continue care w plant changer-per pt next apt in 03/2023 Assessment & Plan (02/09/2023 5:22 PM EDT): Pt w Thrombocytosis and neutrophilic leukocytosis -From records from hematology: bcr/ABL mutation, JAK2 mutation including Exon 12/13, negative CALR and MPL mutations. CT BM bx 03/2022: Shows normo cellular marrow with maturing trilineage hematopoiesis , flow cytometry is normal ,cytogenetics normal female karyotype-- 11/2022 platelets were 686 and WBC wnl at 8.5 By Hem leukocytosis and thrombocytosis possible to be reactive in nature -repeat iron panel,Tb and ESR and CRP to r/o other causes of thrombocytosis - ordered at last apt but not done-reorder today -continue care w plant changer-per pt next apt in 02/2023 Assessment & Plan (11/22/2022 3:48 PM EDT): Hem last note in chart 08/2021 f x Thrombocytosis And neutrophilic leukocytosis suspicion for myeloproliferative neoplasm such as essential thrombocytosis. Further hematological workup revealed negative blood flow cytometry, bcr/ABL mutation, JAK2 mutation including Exon 12/13, negative CALR and MPL mutations. A small percentage of patients can still have essential thrombocytosis without these mutations. She will continue to be monitored. She is asymptomatic. -plan was to Follow-up e/6 months---Pt will call clinic to scheduled f up apt if due -will try to get a most recent record -requested already to [facility] Today -repeat CBC and iron panel,Tb and ESR and CRP to r/o other causes of thrombocytosis Palpitations 11/22/2022 Assessment & Plan (02/09/2023 5:21 PM EDT): -EKG 09/2021-Record : [place] -cards records 04/2022: Holter monitoring which showed rare premature atrial complexes and PVCs. and echocardiogram which showed normal biventricular function with mild aortic valve stenosis and mildly dilated ascending aorta. -Pt to continue to f w cards for echo abnormalities ,palpitations --states f up apt next week -from previous cards note-pt was advised to stop hydroxyzine given can cause tachycardia and palpitations--pt currently taking -will f w pt at her next apt- med px by psychiatrist. -cards increased her metoprolol succinate to 50mg QD -referred recently by cards to repeat echocardiogram-not done yet -Advised to continue to avoid caffeine -to f w cards in 6 months -last apt 12/2022 Assessment & Plan (11/22/2022 1:48 PM EDT): -EKG 09/2021-Record : [place] -cards records 04/2022: Holter monitoring which showed rare premature atrial complexes and PVCs. AND echocardiogram which showed normal biventricular function with mild aortic valve stenosis and mildly dilated ascending aorta. -Pt to continue to f w cards for echo abnormalities ,palpitations --states f up apt next week -from previous cards note-pt was advised to stop hydroxyzine given can cause tachycardia and palpitations--pt currently taking -will f w pt at her next apt- med px by psychiatrist. Epigastric pain 11/22/2022 Assessment & Plan (11/22/2022 2:00 PM EDT): Reports chronic bloating and epigastric pain on PPis at least 3 times a week Denies previous EGD or h pylori test per pt -advised to hold on PPIs and take famotidine prn -diet changes advised -pt will RTC in 2 weeks -off PPIs and will have H pylori UBT Leg pain 11/22/2022 Assessment & Plan (03/08/2023 6:52 PM EDT): -Lumbar MRI 2012: disc desiccation and annular bulging and tiny left paramedian disc extrusion L5/S1 w/o stenosis nor nerve compression. -here normal knee and leg exam as well normal neuro exam -will start PT of right knee given reports sometimes feels weaker knee and may need to improve quadriceps strength -if not improving w it will need to eval back and knee further ---Pt lost PT apt -but pt to call and reschedule -gave today info for pt to call Assessment & Plan (02/09/2023 5:07 PM EDT): -Lumbar MRI 2012: disc desiccation and annular bulging and tiny left paramedian disc extrusion L5/S1 w/o stenosis nor nerve compression. -here normal knee and leg exam as well normal neuro exam -will start PT of right knee given reports sometimes feels weaker knee and may need to improve quadriceps strength -if not improving w it will need to eval back and knee further ---Pt lost PT apt -but pt to call and reschedule Assessment & Plan (11/22/2022 2:03 PM EDT): -Lumbar MRI 2012: disc desiccation and annular bulging and tiny left paramedian disc extrusion L5/S1 w/o stenosis nor nerve compression. -here normal knee and leg exam as well normal neuro exam -will start PT of right knee given reports sometimes feels weaker knee and may need to improve quadriceps strength -if not improving w it will need to eval back and knee further Overweight (BMI 25.0-29.9) 11/22/2022 Assessment & Plan (03/08/2023 6:53 PM EDT): Lost 9 pounds in last 2 months-thinks since having diarrhea -Advised pt to improve diet and exercise,discussed healthy life style -discussed shank turner referral -refuse Assessment & Plan (02/09/2023 5:09 PM EDT): Gained 5 pounds in 2 months -Advised pt to improve diet and exercise,discussed healthy life style -discussed shank turner referral -refuse Assessment & Plan (11/22/2022 2:05 PM EDT): Advised pt to improve diet and exercise,discussed healthy life style -discussed shank turner referral -refuse Depression 11/22/2022 Assessment & Plan (03/08/2023 6:59 PM EDT): PHQ9: 5 Pt states feeling stable Has depression f w physchotx and psychiatrist Assessment & Plan (02/09/2023 5:17 PM EDT): PHQ9: 5 Pt states feeling stable Has depression f w physchotx and psychiatrist Assessment & Plan (11/22/2022 2:12 PM EDT): PHQ9: 5 Pt states feeling stable Has depression f w physchotx and psychiatrist Multinodular goiter 05/10/2021 Assessment & Plan (03/08/2023 6:53 PM EDT): F w Dr Waggoner -thyroid US 2019 from endo' s records: vascularity of thyroid is increased ,right lobe- thyroid nodule max diam 0.7 cm and #3 nodules in left lobe max diam is 1.6 cm -s/p FNA w benign bx of thyroid nodules -thyroid US 08/2022 : Relative stable bl thyroid nodules,increase thyroid vascularity,borderline goiter rec to continue thyroid surveillance -continue care w her justice court deputy clerk Assessment & Plan (02/09/2023 5:08 PM EDT): F w Dr Waggoner -thyroid US 2019 from endo' s records: vascularity of thyroid is increased ,right lobe- thyroid nodule max diam 0.7 cm and #3 nodules in left lobe max diam is 1.6 cm -s/p FNA w benign bx of thyroid nodules -thyroid US 08/2022 : Relative stable bl thyroid nodules,increase thyroid vascularity,borderline goiter rec to continue thyroid surveillance -continue care w her justice court deputy clerk Assessment & Plan (11/22/2022 1:52 PM EDT): F linda Waggoner -thyroid US 2019 from endo' s records: vascularity of thyroid is increased ,right lobe- thyroid nodule max diam 0.7 cm and #3 nodules in left lobe max diam is 1.6 cm -s/p FNA w benign bx of thyroid nodules -continue care w her justice court deputy clerk -pt will need to check w specialist when had last thyroid US done and if need to repeat--per that note to f image once a year Subclinical hypothyroidism 05/10/2021 Assessment & Plan (03/08/2023 6:52 PM EDT): f linda Waggoner 11/2022 TSH,T4 are wnl - levothyroxine daily Assessment & Plan (02/09/2023 5:08 PM EDT): f w Adriana Waggoner 11/2022 TSH,T4 are wnl - levothyroxine daily Assessment & Plan (11/22/2022 1:52 PM EDT): junior w endo-Dr Waggoner -will check today TSH,T4-not took med this am but states to be complaint w levothyroxine daily Lumbago 02/02/2012 Overview (02/09/2023): -lumbar XR and Left hip XR 06/2022 : unremarkable hip, mild degenerative disc changes in L5-S1 Resolved Problems Problem Noted Date Diagnosed Date Resolved Date Respiratory infection 02/09/20232022 Assessment & Plan (02/09/2023 5:25 PM EDT): Reports having 2 weeks of cough ,initially with rhinorrhea, fever ,tested neg for COVID 19 per pt at home. Since then symptoms resolved but having ongoing cough sometimes with greenish production. Denies SOB,dizziness nor CP. -Px guaifenesin -seems lingering cough after recent infection however to start quadruple tx for h pilory with amoxicillin -alarm signs and symptoms Hypoalphalipoproteinemia 04/10/201211/2022 Shoulder pain 04/10/2012 11/22/2022 Smoker 02/10/2012 11/22/2022 Encounters Date Type Department Care Team Description 09/19/2024 Refill [facility] [address] [place] [id number] Kendra Blackburn MD 09/11/2024 9:40 AM EDT Office Visit [facility] [address] [place] [phone] Power Mcleod MD Diarrhea, unspecified type (Primary Dx) 09/11/2024 Telephone [facility] [address] [place] [phone] Power Mcleod MD 09/11/2024 Orders Only [facility] [address] [place] [phone] Power Mcleod MD C. difficile enteritis (Primary Dx) 09/11/2024 Orders Only [facility] [address] [place] [id number] Power Mcleod MD 09/11/2024 Telephone [facility] [address] [place] [address] Kendra Blackburn MD Nurse Triage 07/31/2024 Refill [facility] [address] [place] [address] Kendra Blackburn MD from Last 3 Months Immunizations Name Administration Dates Next Due Hep A, Adult 04/10/2012 Hep B, adult 04/10/2012,07/21/2009,10/09/2007 Influenza injectable quadriv alent IIV4 with preservative 05/15/2018,04/18/2016 Influenza injectable quadriv alent preservative free 03/08/2023,03/04/2022,08/20/2019 Influenza, IIV3, injectable 03/24/2011 Influenza, Split (incl. evens fied surface antigen) 04/24/2013 Pneumococcal Conjugate PCV 20 04/10/2023 TD (adult), 2 Lf tetanus tox oid, preservative free, adsorbed 07/21/2009 Tdap 07/18/2021,04/10/2012 Zoster, Recombinant 05/23/2023,03/21/2023 Family History Medical History Relation Name Comments HTN Brother Heart attack Maternal Grandmother HTN Mother [place] -at 50s Mother's Sister Valvular heart disease, HTN Sister Relation Name Status Comments Brother Maternal Grandmother Mother Mother's Sister Sister Social History Tobacco Use Types Packs/Day Years Used Date Smoking Tobacco: Some Days Cigarettes Smokeless Tobacco: Never Tobacco Cessation:Ready to Q uit: Not Asked; Counseling Given: Not Answered Comments:Smoking since 26 y until now---smoking 6-7 [...] the past 12 months, has t he [employer], gas, oil or water company threatened to shut off services in your home? I am not sure 12/15/2023 Depression Answer Date Recorded Patient Health Questionnaire-2 Score 4 12/15/2023 Internet Access Answer Date Recorded Internet Access Q1 No 02/19/2024 Internet Access Q2 Not on file 02/19/2024 Comments No Sex and Gender Information Value Date Recorded Sex Assigned at Female 04/18/2022 10:19 AM EDT Legal Sex Female 10:19 AM EDT Gender Identity Female 04/18/2022 10:19 AM EDT Sexual Orientation Straight 04/18/2022 10 :19 AM EDT Last Filed Vital Signs Vital Sign Reading Time Taken Comments Blood Pressure 109/73 09/11/2024 9:53 AM EDT Pulse 66 09/11/2024 9:53 AM EDT Temperature 36.7 ??C (98 ??F) 09/11/2024 9:53 AM EDT Respiratory Rate 17 09/11/2024 9:53 AM EDT Oxygen Saturation 98% 09/11/2024 9:53 AM EDT Inhaled Oxygen Concentration - - Weight 76.7 kg (169 lb 3.2 oz) 09/11/2024 9:53 A M EDT Height 154.9 cm (5' 1 ) 12/15/2023 10:56 AM EDT Body Mass Index 31.97 12/15/2023 10:56 AM EDT Plan of Treatment Health Maintenance Due Date Last Done Comments CT Colonography 1971 FIT DNA/Cologuard 1971 FIT 1971 FOBT 1971 Sigmoidoscopy 1971 Alcohol/Substance Use Screening 1983 Family Planning (PISQ) 12/15/1986 COVID-19 Vaccine ( season) 2024 03/29/2022, 08/17/2021, 09/14/2020, Additional history exists Influenza Vaccine (#1) 2024 , 03/04/2022, 08/20/2019, Additional history exists Depression Screening 12/14/2024 12/15/2023, 11/23/19 23 SDOH Screening 12/14/2024 12/15/2023 Mammogram 07/10/2025 07/10/2024, 06/19, 06/11/2020, Additional history exists Tobacco Screening 09/11/2025 09/11/2024 Pap Smear 03/01/2026 03/01/2023 Lipid Panel 12/08/2027 12/07/2022, 04/20, 02/03/2021, Additional history exists Cervical Cancer Screening 03/01/2028 HPV/Cotest 03/01/2028 03/01/2023 DTaP/Tdap/Td Vaccines (3 - Td or Tdap) 07/18/2031 07/18/2021, 04/10/2012, 07/21/2009 Colonoscopy 08/20/2033 08/21/2023 Colorectal Cancer Screening 08/20/2033 RSV Patients and Patients Aged 60 years or older (1 - 1-dose 75+ series) 12/15/2046 Hepatitis A Vaccines Aged Out 04/10/2012 No long er eligible based on patient's age to complete this topic Hepatitis B Vaccines Completed 04/10/2012, 07/21/2009, 10/09/2007 Pneumococcal Vaccine: 50+ Years Completed 04/10/2023 Zoster Vaccines Completed 05/23/2023, 03/21/2023 HIV Screening Completed 08/18/2023, 12/07/2022 Hepatitis C Screening Completed 08/18/2023, 023 HIB Vaccines Aged Out No longer eligi ble based on patient's age to complete this topic HPV Vaccines Aged Out No longer eligi ble based on patient's age to complete this topic IPV Vaccines Aged Out No longer eligi ble based on patient's age to complete this topic Meningococcal Vaccine Aged Out No emile brenda eligible based on patient's age to complete this topic RSV under 20 months Aged Out No longe r eligible based on patient's age to complete this topic Rotavirus Vaccines Aged Out No longer eligible based on patient's age to complete this topic Goals Goal Patient Goal Type Associated Problems Recent Progress Patient-Stated? Author Smoking cessation General No Elis Chino PharmD Procedures Procedure Name Priority Date/Time Associated Diagnosis Comments CDIFF TOXIN Routine 09/11/2024 11:32 AM EDT C. difficile enteritis CDIFF GENE PCR Routine 09/11/2024 11:32 AM EDT HELICOBACTER PYLORI AG, EIA, STOOL Routine 09/11/2024 11:32 AM EDT Diarrhea, unspecified type OVA AND PARASITES, CONC AND PERM SMEAR Routine 09/11/2024 11:32 AM EDT Diarrhea, unspecified type GASTROINTESTINAL PANEL Routine 11:32 AM EDT Diarrhea, unspecified type BI MAMMOGRAM SCREENING TOMOSYNTHESIS BILATERAL Routine 07/10/2024 9:53 AM EST HM COLONOSCOPY Routine 08/21/2023 11:53 AM EST HEPATITIS C AB W/REFL TO HCV RNA, QN, PCR Routine 08/18/2023 8:06 AM EST Neuropathy HIV 1/2 ANTIGEN/ANTIBODY, FOURTH GENERATION W/RFL Routine 08/18/2023 8:06 AM EST Neuropathy HPV MRNA E6/E7 REFLEX TO HPV 16, 18/45 Routine 03/01/2023 11:15 AM EDT PAP SMEAR Routine 03/01/2023 11:15 AM EDT LIPID PANEL, STANDARD Routine 12/07/2022 11:04 AM EDT from Last 3 Months or Most Recently Relevant to Health Maintenance Results * CDiff Toxin (09/11/2024 11:32 AM EDT) [facility] CDiff Toxin Negative Negative [facility] CDIFF Interpretation SEE NOTE [facility] Comment:Likely C. difficile colonization. Continue contactprecautions. 09/11/2024 11:3 2 AM EDT 09/11/2024 1:48 PM EDT us Power Mcleod MD LAB BODY FLUIDS AND STOOLS ORDER JAHAIRA Final Result Performing Organization Address [facility] de Phone Number [facility] [address] [place] [phone] * (ABNORMAL) CDiff Gene PCR (09/11/2024 11:32 AM EDT) [facility] CDiff Gene PCR POSITIVE(A A) Negative [facility] Comment:Additional C. diffic ile toxin testing to be performed. 09/11/2024 11:3 2 AM EDT 09/11/2024 1:48 PM EDT us Power Mcleod MD LAB BODY FLUIDS AND STOOLS ORDER JAHAIRA Final Result Performing Organization Address [facility] de Phone Number [facility] [address] [place] [phone] * Gastrointestinal panel (09/11/2024 11:32 AM EDT) [facility] Campylobacter Not Detected Not Detect. [facility] Plesiomonas shigelloides Not Detected Not Detect. [facility] Salmonella Not Detected Not Detect. [facility] Vibrio Not Detected Not Detect. [facility] Vibrio cholerae Not Detected Not Detect. [facility] YERSINIA ENTEROCOLITICA Not Detected Not Detect. [facility] Enteroaggregative E. coli (EAEC) Not Detected Not Detect. [facility] Enteropathogenic E. coli (EPEC) Not Detected Not Detect. [facility] Enterotoxigenic E. coli (ETEC) lt/st Not Detected Not Detect. [facility] Shiga-like toxin-producing E. coli (STEC) stx1/stx2 Not Detected Not Detect. [facility] E coli O157 Not applicable Not Detect. [facility] Comment:E. coli containing t he O157 antigen are a subset ofShiga-like toxin- producing E. coli (STEC). Shigella/Enteroinvasive E. coli (EIEC) Not Detected Not Detect. [facility] Cryptosporidium Not Detected Not Detect. [facility] Cyclospora cayetanensis Not Detected Not Detect. [facility] Entamoeba histolytica Not Detected Not Detect. [facility] Giardia lamblia Not Detected Not Detect. [facility] Adenovirus F 40/41 Not Detected Not Detect. [facility] Astrovirus Not Detected Not Detect. [facility] Norovirus GI/GII Not Detected Not Detect. [facility] Rotavirus A Not Detected Not Detect. [facility] Sapovirus Not Detected Not Detect. [facility] Comment: All results must be correlated with clinical findings.Negative results do not exclude the possibility ofgastrointestinal infection and should not be used as thesole basis for diagnosis, treatment, or other managementdecisions. Virus, bacteria, and parasite nucleic acid maypersist in vivo independently of organism viability.Additionally, some organisms may be carriedasymptomatically.Detection of organism targets does not imply that thecorresponding organisms are infectious or are the causativeagents for clinical symptoms. There is a risk of falsenegative values due to the presence of sequence variants inthe gene targets of the assay, amplification inhibitors inspecimens, or inadequate numbers of organisms foramplification.The identification of several diarrheagenic E. colipathotypes has historically relied upon phenotypiccharacteristics. This panel targets genetic determinantscharacteristic of most pathogenic strains, but may notdetect all strains having phenotypic characteristics of apathotype.The performance of this test has not been established formonitoring treatment of infection with any of the panelorganisms.This assay is performed by Multiplexed PCR, utilizing CleveX Array. Stool Rectal contents / Unknown 09/11/2024 11:32 AM EDT 09/11/2024 1:48 PM EDT us Power Mcleod MD LAB MICROBIOLOGY - GENERAL ORDER JAHAIRA Final Result [facility] [address] [place] [phone] * Ova and Parasites,??Concentrate and Permanent Smear (09/11/2024 11:32 AM EDT) Ova and Parasite Trichrome SEE NOTE [facility] Comment: ??OVA AND PARASITES, CONC AND PERM SMEAR ??Micro Number: ?[id number] ??Test Status: ? Final ??Specimen Source: ?? Stool ??Specimen Quality: ??Adequate ??CONCENTRATION 1: ?? No ova or parasites seen ??TRICHROME 1: ? No ova or parasites seen ??Comment: ? Screened using Computer Assisted Technology. ? Routine Ova and Parasite exam may not detect some ? parasites that occasionally cause diarrheal ? illness. Cryptosporidium Antigen and/or Cyclospora ? and Isospora Exam may be ordered to detect these ? parasites. One negative sample does not ? necessarily rule out the presence of a parasitic ? infection. ? For additional information, please refer to ? https://Zyante.[employer].CrossTx/faq/ULQ820 ? (This link is being provided for informational/ ? educational purposes only.)THIS TEST WAS PERFORMED AT:[facility] [address] ??[id number] VERNON MD Stool Rectal contents / Unknown 09/11/2024 11:32 AM EDT 09/11/2024 1:48 PM EDT Power Mcleod MD LAB MICROBIOLOGY - GENERAL ORDER JAHAIRA Final Result Performing Organization Address [facility] Co de Phone Number [facility] [address] [place] [address] [phone] * Helicobacter pylori??Antigen, EIA, Stool (09/11/2024 11:32 AM EDT) H pylori Ag Stool SEE [facility] Comment:HELICOBACTER PYLORI AG, EIA, STOOL Micro Number: [id number] Test Status: Final Specimen Source: Stool Specimen Quality: Adequate H.pylori Ag: Not Detected Antimicrobials, proton pump inhibitors, and bismuth preparations inhibit H. pylori and ingestion up to two weeks prior to testing may cause false negative results. If clinically indicated the test should be repeated on a new specimen obtained two weeks after discontinuing treatment. Reference Range: Not DetectedTHIS TEST WAS PERFORMED AT:[facility] [address] [id number] JOHNSON MD Stool Rectal contents / Unknown 09/11/2024 11:32 AM EDT 09/11/2024 1:48 PM EDT Power Mcleod MD LAB BODY FLUIDS AND STOOLS ORDER JAHAIRA Final Result Performing Organization Address [facility] de Phone Number [facility] [address] [place] [phone] * BI Mammogram Screening Tomosynthesis Bilateral (07/10/2024 9:53 AM EST) Anatomical Region Laterality Modality Breast Bilateral Mammography 07/10/2024 9:53 AM EST Narrative 07/18/2024 2:07 PM EST ? [facility] ? [address] ?[place] [address] ? Mammography Report ? Signed ? Patient: Perdomo Alvarado,Delia ?MR#: [id number] ?? [id number] ? : 1970 ?Acct:[id number] ? Age/Sex: 53 / F ?ADM Date: 07/10/24 ? Loc: HO.MAMMO ? Attending Dr: Kendra Luo MD ? Ordering Physician: Kendra Blackburn MD ?Re ?? sults: 2Benign Findings ? Date of Service: 07/10/24 ?Follow Up: 1 Year From Orig ?? inal Mammogram ? Procedure(s): MM tomosynthesis screening BI ?? Accession Number(s): [id number] ? cc: Kendra Blackburn MD ? EXAMINATION: ?? MM SCREENING DIGITAL BREAST TOMOSYNTHESIS, BILATERAL ? CLINICAL INFORMATION: ? Screening. Asymptomatic. ? COMPARISON: ?? Mammography: Comparison is made with available priors ? TECHNIQUE: ?? Digital breast mammography with tomosynthesis is performed in both the ?? craniocaudal and mediolateral oblique views along with computer-aided ?? detection (CAD). ? FINDINGS: ?? The breasts are extremely dense, which lowers the sensitivity of ?? mammography (ACR BI-RADS breast composition Category d). ?? Right postsurgical changes are stable. ?? There are no significant masses, abnormal calcifications, or other ?? abnormalities. ? MM/MM tomosynthesis screening BI ?? IMPRESSION: ?? No mammographic evidence of malignancy. ? ASSESSMENT: ? BI-RADS BI-RADS 2 - Benign Findings ? RECOMMENDATION: ?? Routine annual mammography screening. ? 1 year F/U ? This examination should not preclude the clinical evaluation of a ?? suspicious palpable abnormality. ? This patient's information was entered into a reminder system with a ?? target due date for their next mammogram. ? Electronically signed by: ??Kayley Garcia DO ??07/18/2024 02:04 PM EST ?? RP ? Dictated By: ?Kayley Garcia DO ? Signed By: ?<Electronically signed by Kayley Garcia, DO in OV> ? 07/18/24 1404 ? DD/ 0953 ? TD/TT: 07/10/24 1010 ? Racecar Driver: ? Procedure Note Domingo, Image - 07/18/2024 [place] [address] [place] [address] Mammography Report Signed Patient: Dominguez Matias#: [id number] : 1970Acct:[id number] Age/Sex: 53 / FADM Date: 07/10/24 Loc: HO.MAMMO Attending Dr: Kendra Luo MD Ordering Physician: Kendra Blackburn sults: 2Benign Findings Date of Service: 07/10/24Follow Up: 1 Year From Orig inal Mammogram Procedure(s): MM tomosynthesis screening BI Accession Number(s): [id number] cc: Kendra Blackburn MD EXAMINATION: MM SCREENING DIGITAL BREAST TOMOSYNTHESIS, BILATERAL CLINICAL INFORMATION: Screening. Asymptomatic. COMPARISON: Mammography: Comparison is made with available priors TECHNIQUE: Digital breast mammography with tomosynthesis is performed in both the craniocaudal and mediolateral oblique views along with computer-aided detection (CAD). FINDINGS: The breasts are extremely dense, which lowers the sensitivity of mammography (ACR BI-RADS breast composition Category d). Right postsurgical changes are stable. There are no significant masses, abnormal calcifications, or other abnormalities. MM/MM tomosynthesis screening BI IMPRESSION: No mammographic evidence of malignancy. ASSESSMENT: BI-RADS BI-RADS 2 - Benign Findings RECOMMENDATION: Routine annual mammography screening. 1 year F/U This examination should not preclude the clinical evaluation of a suspicious palpable abnormality. This patient's information was entered into a reminder system with a target due date for their next mammogram. Electronically signed by: Kayley Garcia DO 07/18/2024 02:04 PM EST Dictated By: Kayley Garcia DO Signed By: <Electronically signed by Kayley Garcia DO in OV> 07/18/24 1404 DD/ 0953 TD/TT: 07/10/24 1010 Racecar Driver: Kendra Luo MD IMG BI PROCEDURES Final Result * Hm Colonoscopy (08/21/2023 11:53 AM EST) Historical Provider HEALTH MAINTENANCE Final Result * Hepatitis C Antibody with Reflex to HCV, RNA, Quantitative, Real-Time PCR (08/18/2023 8:06 AM EST) Hepatitis C Antibody Nonreactive Nonreactive [facility] Comment:Antibodies to HCV no t detected; does not exclude early acuteHCV infection. Blood Venous blood specimen / Unknown 08/18/2023 8:06 AM EST 08/18/2023 11:22 AM EST Kendra Luo MD LAB BLOOD ORDERAB LES Final Result [facility] [address] [place] [phone] * HIV-1/2 Antigen and Antibodies, Fourth Generation, with Reflexes (08/18/2023 8:06 AM EST) HIV AB/AG Nonreactive Nonreactive [facility] Comment:HIV-1 p24 Ag and/or HIV-1/HIV-2 Ab not detected.A test result that is nonreactive does not exclude thepossibility of exposure to or infection with HIV-1 and/orHIV-2. Nonreactive results in this assay for individualswith prior exposure to HIV-1 and/or HIV-2 may be due toantigen and antibody levels that are below the limit ofdetection of this assay.The Farehelper HIV Ag/Ab Combo assay result andsupplemental assay results should be interpreted inconjunction with the patient's clinical presentation,history and other laboratory results. If the results areinconsistent with clinical evidence, additional testing issuggested to confirm the result. Blood Venous blood specimen / Unknown 08/18/2023 8:06 AM EST 08/18/2023 11:22 AM EST Kendra Luo MD LAB BLOOD ORDERAB LES Final Result [facility] [address] [place] [address] [phone] * HPV mRNA E6/E7 w/Reflex to HPV Genotypes 16, 18/45 (03/01/2023 11:15 AM EDT) Pathologist [facility] HPV nRNA E6/E7 Not Detected Not Detected [facility] Comment:Methodology: Transcr iption-Mediated AmplificationThis assay detects E6/E7 viral messenger RNA (mRNA) from 14high-risk HPV types (16,18,31,33,35,39,45,51,52,56,58,59,66,68).Cervical sources are required for HPV testing.If a vaginal source from a patient who has had atotal hysterectomy with removal of cervix wassubmitted, please contact the testing laboratoryfor alternative testing options.For additional information, please refer tohttp://education.Myxer/faq/BNF385u7(This link if provided for information/educational purposes only.)THIS TEST WAS PERFORMED AT:[facility] [address] [id number] JOHNSON MD HPV mRNA E6/E7 TNP [facility] HPV 16 RNA TNP [facility] HPV 18/45 RNA TNP [facility] 03/01/2023 11:1 5 AM EDT 03/02/2023 9:10 AM EDT us Kwesi Marx [facility] CYTOLOGY ORDERABLES F inal Result [facility] [address] [place] [phone] * Pap Smear (03/01/2023 11:15 AM EDT) 03/01/2023 11:1 5 AM EDT 03/02/2023 9:10 AM EDT Narrative [facility] - 03/12/2023 5:26 PM EDT ----- ------- Name: Delia Perdomo ?Age/Sex: 52/F ? : 1970 Unit#: [id number] ?? Attend Dr: Fouzia Correa MD ?Re03/01/23 ?Status: DEP REF ? Location: HO.HHCL ? Disch: ? ----- ------- SPEC : [id number] ?RECD: 03/02/23 ? STATUS: ??SOUT ? REQ NUM: [id number] ? NANETTE: 03/01/23 ? SUBM DR: KWESI MARX CNM ? ENTERED: ??03/02/23 ?SP TYPE: Pap Smr ?OTHR : ? ORDERED: ??Pap Smear ? Interpretation ?? Satisfactory for evaluation. ?? Negative for intraepithelial lesion or malignancy. ? HPV mRNA E6/E7: ?NOT DETECTED ? This assay detects E6/E7 viral messenger RNA (mRNA) from 14 high-risk HPV types (16, 18, ?? 31, 33, 35, 39, 45, 51, 52, 56, 58, 59, 66, 68) ? HPV testing performed by [facility], [place], [place]. ??See reference laboratory ?? portion of the EMR for entire report. ?Clinical Information LMP: Unknown date Previous PAP test: 2018, WNL ? Material Received ?? ThinPrep-Vaginal/Cervical ----- ------- Signed (signature on file) Deandra Majano 03/12/231725 ? ----- ------- ? END OF REPORT ? us Kwesi Marx [facility] CYTOLOGY ORDERABLES F inal Result [facility] [address] [place] [phone] * (ABNORMAL) Lipid Panel, Standard (12/07/2022 11:04 AM EDT) Cholesterol, Total 164 <200 mg/dL [facility] [place] HDL Cholesterol 46(L) > OR = 50 mg/dL [facility] [place] Triglycerides 102 <150 mg/dL [facility] [place] LDL Cholesterol 98 mg/dL (calc) [facility] [place] [facility] Comment: Reference range: <100 Desirable range <100 mg/dL for primary prevention; ?? <70 mg/dL for patients with CHD or diabetic patients with > or = 2 CHD risk factors. LDL-C is now calculated using the Mono calculation, which is a validated novel method providing better accuracy than the Friedewald equation in the estimation of LDL-C. Israel SS et al. LAUREEN. 2013;310(19): 1800-6424 (http://education.Togic Software/faq/BNJ808) Chol/HDLC Ratio 3.6 <5.0 (calc) [facility] [place] Non-HDL Cholesterol 118 <130 mg/dL (calc) [facility] [place] Comment: For patients with diabetes plus 1 major ASCVD risk factor, treating to a non-HDL-C goal of <100 mg/dL (LDL-C of <70 mg/dL) is considered a therapeutic option. 12/07/2022 11:0 4 AM EDT 12/07/2022 11:09 AM EDT Narrative [facility] - 12/11/2022 1:14 AM EDT FASTING:YES FASTING: YES Kendra Luo MD LAB BLOOD ORDERAB LES Final Result [facility] [address], [place] [phone] [facility] [address] [place] [phone] from Last 3 Months or Most Recently Relevant to Health Maintenance Insurance [facility] ONE CARE < 65 [place] [id number] Care Teams Valve Repairer Relationship Specialty Start Date End Date Kendra Blackburn MD [address] [place] [phone] PCP - General Internal Medicine 10/27/22
--- NOTE | 2024-10-28 13:56 | MHC.OFFVIS ---
Vital Signs 10/28/24 14:05 Height 5 ft 1 in Weight 167 lb 15.876 oz BMI 31.7 BP 110/60 Blood Pressure Location Lt brachial Position Sitting Pulse 61 Pulse Source Monitor Intake Visit Reasons: 6 mth f/up-r/s 07/31 Intake Note: 6 mth fup Patient Clerical Assistant Required: Yes Patient Clerical Assistant Language: [employer] Pinner Name: [email or web address] [id number] Accompanied by: Self / Same As Patient Allergies No Known Allergies [No Known Allergies*] Allergy (Verified 04/17/24 13:08) Medication List - Last Reconciled 10/28/24 by Zan Lambert MD amlodipine 10 mg PO DAILY aspirin (Adult Aspirin Regimen) 81 mg PO DAILY cholecalciferol (vitamin D3) 50 mcg PO DAILY 30 days duloxetine 1 cap PO DAILY hydrochlorothiazide 12.5 mg PO DAILY hydroxyzine pamoate 25 mg PO BID levothyroxine 25 mcg PO QAM metoprolol succinate ER 50 mg PO DAILY 30 days mirtazapine 7.5 mg PO BEDTIME pantoprazole 40 mg PO QAM terconazole 0.8% 1 appful vaginal BEDTIME 3 days HPI Comments Details: 53-year-old female who is here for follow-up. She was seen for palpitations and dizziness. She was sent for Holter monitoring which showed rare premature atrial complexes and PVCs. No significant sustained arrhythmia was noted on the 3 day Holter monitor.. She had an echocardiogram which showed normal biventricular function with mild aortic valve stenosis and mildly dilated ascending aorta. She was drinking 3-4 glasses was soda daily and she was advised to cut back.. Does not drink any other caffeinated drinks. She previously was describing a lightheaded feeling when she changes her posture. She was advised to keep herself well hydrated and maybe use some Gatorade. She returns for follow-up and is complaining that she continues get palpitations. These continue to be infrequent and can happen once every 1-2 weeks. She also gets slight dizziness when this happens. She has no chest discomfort. She is denying shortness of breath. She physically not active and does not exercise regularly. She is asking why she is on 2 antihypertensive medications. It appears she was already on antihypertensive therapy before she came to see us. She is saying she was started on blood pressure medications when she went to the emergency department. Her blood pressure control mostly has been good. Was previously advised to discuss with her psychiatrist about stopping hydroxy seen because that can cause palpitations tachycardia. 07/24/23: She is here for follow-up. She has been doing well. She gets once a month palpitations lasting for few minutes. Previously had cardiac event monitor which did not show any arrhythmia. Echocardiography has shown ascending aorta of 3.5 cm. Blood pressure is well controlled. She is a smoker. She has not had recent cholesterol testing. 01/29/24: She is here for f/u. BP well controlled. Continues to smoke. Mildly dilated aorta 3.5 cm. 10/28/24: She is here for follow-up. Clinically stable. Denying any symptoms. 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 a significant other at home: Yes Do you presently have visiting nurse or other home services: No Alcohol intake: never Patient Tobacco Use Status: Current everyday Tobacco user Tobacco use type: Cigarette Cigarettes Per Day: 8 Years Smoked: 20 Second Hand Smoke Exposure: No service: No Current occupational status: unemployed Current occupation: rt handed Review of Systems Const Denies chills, Denies fatigue, Denies fever(s), Denies frequent falls, Denies weakness, Denies weight gain and Denies weight loss ENT Denies dizziness Card Denies chest pain, Denies leg edema, Denies lightheadedness, Denies palpitations, Denies dyspnea and Denies dyspnea on exertion Resp Denies cough, Denies dyspnea and Denies dyspnea on exertion GI Denies hematochezia Musc Denies abnormal gait, Denies muscle weakness, Denies numbness, Denies radiating pain into limb and Denies tingling Neuro Denies abnormal gait, Denies dizziness, Denies frequent falls, Denies numbness, Denies tingling and Denies weakness Endo Denies fatigue and Denies palpitations Physical Exam Vital Signs: Last Vital Signs Pulse 61 10/28/24 14:05 BP 110/60 10/28/24 14:05 BMI result Body Mass Index 31.7 GENERAL APPEARANCE: in no acute distress, pleasant. NECK: no carotid bruit, no jugular venous distention. SKIN: no suspicious lesions, warm and dry. HEART: no murmurs, regular rate and rhythm. LUNGS: clear to auscultation bilaterally. ABDOMEN: soft, nontender. EXTREMITIES: no edema. PERIPHERAL PULSES: equal. NEUROLOGIC: No gross deficits, AAO X 3 Office Procedures EKG Details: NSR 61/min, normal ECG [id number], Complete Assessment & Plan Assessment & Plan (1) Mild dilation of ascending aorta: Code(s): I77.810 - Thoracic aortic ectasia Category: Medical Plan [age] year female who is here for follow-up. She has very mild dilation of ascending aorta 3.5 cm. This was in 2022. Blood pressure is stable at this point. She is doing well and we will follow up with us in 1 year. Thank you for allowing me to participate in the care of your patient. Please feel free to contact me if you have any questions. Coding Level of Care Code Est Pt Level 3 (15133) Diagnoses Mild dilation of ascending aorta I77.810 CPT Codes EKG - CPT: 30189-[id number], Complete ([id number])
[2024-10-28 14:05] VITALS: BP 110/60; PULSE 61; BMI 31.7
== END 2024-10-28 14:23 | disposition home or self-care (01) ==
LOC: HO.HCS 13:28
PROVIDERS: PCP Student in an Organized Health Care Education/Training Program; Visit Provider Internal Medicine Cardiovascular Disease
DX: I77.810 Thoracic aortic ectasia (principal)
CPT/HCPCS: 93010; 99213

== ENCOUNTER → 2024-10-28 13:28 | Outpatient (BNVA) | payer OTHER, SELFPAY | PROVIDERS: PCP Student in an Organized Health Care Education/Training Program; Visit Provider Internal Medicine Cardiovascular Disease | DX: I77.810 Thoracic aortic ectasia (principal) | CPT/HCPCS: 93005; 99212 ==